=== PATIENT | female | born 1975 | race Caucasian/White ===

== ENCOUNTER 2023-10-04 04:45 | Emergency (ER) | payer OTHER, SELFPAY ==
[2023-10-04 04:46] VITALS: BP 205/103; PULSE 71; RESP 18; TEMP 36.4; O2SAT 95; BMI 26.4
--- NOTE | 2023-10-04 05:15 | EKG12_ITS ---
Test Reason : BACK PAIN Blood Pressure : / mmHG Vent. Rate : 067 BPM Atrial Rate : 067 BPM P-R Int : 178 ms QRS Dur : 084 ms QT Int : 396 ms P-R-T Axes : 065 058 059 degrees QTc Int : 418 ms Normal sinus rhythm Normal ECG Confirmed by NAT HU, DANIELLA ([id number]), commissioning editor PETRA SCHMITT ([id number]) on 10/05/2023 7:14:03 AM Referred By: Confirmed By:DANIELLA JOHNS MD
--- NOTE | 2023-10-04 05:18 | EDS_ITS ---
HPI History of Present Illness Chief Complaint: Back Informant: patient, spouse/S.O. and EMS Narrative Narrative: 48-year-old female presenting to the emergency department chief complaint back pain. Patient states that since April she has had some discomfort in her low back that she was seeing a chiropractor for. She states around the beginning of August she had a few weeks where things were good then began to have some pain again in the low back and a little bit in the mid back. She states that pain seemed to increase on Sunday over the course of 2 days took close to 40 tablets of 200 mg strength ibuprofen. She states it made her stomach upset and felt that the stomach was swollen. Today she was carrying buckets [place] and was sitting down to rest when she felt the pain in her back it more severe. She states it really has not relented since. She denies a history of hypertension stating that her blood pressure is pretty normal. She states she developed numbness and tingling lower extremity. She states that does not feel like they work right or they feel the same. She states that she can feel touch point 1 where touching her legs she does note that yes she can feel it it just does not feel normal. She states that she last urinated around 1900 hrs. No fevers. No familial history of aortic dissection or aneurysm. She denies any chest pain. No dyspnea but states that hurts when she takes a deep breath. PFSH PFSH Medical History no medical history Home Medications NK 10/04/23 [History Last Taken Unknown] Allergy/AdvReac Type Severity Reaction Status Date / Time No Known Allergies Allergy Verified 10/04/23 04:57 Social History (Updated 10/04/23 @ 05:[address] Andrew Barnes, DO) Smoking Status: Never smoker substance use type: other details: Cannabis ROS ROS ED Constitutional Constitutional ED: Denies chills, fever(s) or weight loss Eyes Eyes: Denies change in vision or diplopia ENT ENT ED: Denies ear pain, rhinorrhea or sore throat Cardiovascular Cardiovascular: Denies chest pain, orthopnea, palpitations or racing heartbeat Respiratory/Chest Respiratory/Chest: Denies cough, dyspnea or orthopnea Gastrointestinal Gastrointestinal: Denies abdominal pain, diarrhea, nausea or vomiting Genitourinary Genitourinary ED: Denies dysuria, hematuria or urinary frequency Musculoskeletal Musculoskeletal: Reports back pain; Denies arthralgias or myalgias Integumentary Denies abscess or rash Neurologic Neurologic: Reports paresthesias and weakness; Denies headache(s) Psychiatric Psychiatric: Denies anxiety, depression, suicidal ideation or suicidal thoughts Endocrine Endocrinology: Denies polydipsia, polyphagia or polyuria Allergic/Immunologic Allergic/Immunologic ED: Denies mouth swelling, tongue swelling or urticaria EXAM Physical Exam Const Vital Signs: 10/04/23 04:46 10/04/23 05:47 10/04/23 06:15 Temperature 97.5 F L Temperature Source Temporal Pulse Rate 71 78 72 Respiratory Rate 18 14 16 Blood Pressure 205/103 H 173/95 H 166/89 H Blood Pressure Mean 137 121 114 Pulse Ox 95 95 Oxygen Delivery Method Room Air Room Air 10/04/23 08:31 Temperature Temperature Source Pulse Rate 68 Respiratory Rate 16 Blood Pressure 183/88 H Blood Pressure Mean 119 Pulse Ox 97 Oxygen Delivery Method Room Air Positive well nourished and well developed General Appearance ED: well developed HEENT Reports normocephalic, head/scalp atraumatic and moist mucous membranes Eyes PERRL and EOMs intact bilaterally Neck no lymphadenopathy, supple and no JVD Resp normal respiratory effort and clear to auscultation bilaterally Cardio regular rate, regular rhythm and no murmurs GI normal to inspection, nondistended, normoactive bowel sounds and non-tender Palpation: soft Back/Spine no CVA tenderness Back/Spine Narrative: Patient reports a painful range of motion. Though when I push on the paraspinal musculature in the area that the patient states that it hurts really cannot reproduce the pain. Extremity normal to inspection General Extremety ED: Negative for edema General Extremity: Negative for edema Neuro oriented x3 and CN's II-XII intact bilaterally Neuro Narrative: Patient reports generalized weakness of the bilateral lower extremities. I see some movement against gravity but minimal. She has sensation to gross touch and pinprick but notes that it is decreased. She feels pressure sensation over the pelvis but again does note that it feels less than what it showed. She does appear to have decreased rectal tone and decreased sensation when Mijares inserted. Sensorium / Orientation: alert Sensory Exam: sensory level loss detected Motor Exam: strength abnormal Psych mental status grossly normal Mood & Affect: Negative for depressed or tearful Skin no rashes or lesions noted and no wounds MDM MDM MDM Narrative Medical decision making narrative: EKG done upon arrival shows a normal sinus rhythm with a ventricular rate of 67 bpm. My independent interpretation of the chest x-ray is normal mediastinal silhouette. Basic blood work showed a white count of 10 hemoglobin of 14.7. INR 1 PTT 28.1. CMP showed an AST of 42 lipase 28 creatinine 0.70. My concern was for spinal cord injury but also on the differential would be aortic emergencies and certainly with the complaint of abdominal swelling would worry about something intra-abdominal. Therefore a CT of the chest abdomen pelvis was ordered. This was more readily available than MRI not only in a time to obtain imaging but to rule out The most amount of possible pathologies and not the least is that nobody is an MRI at the current time.. This demonstrated what appears to be metastatic breast cancer with multiple areas of metastasis including liver and spine. Specifically T12 and T5 compression fractures. T5 has large mass resulting in severe spinal cord compression. Mijares catheter was placed with 2 L of urine out. Patient received morphine and Zofran. I spoke at length with the patient and her .I spoke locally with Dr. Morgan from spine surgery. Using shared decision making the family and I are both in agreement that transfer to tertiary care facility for neurosurgical evaluation and oncologic care. Patient does note that she may choose not to pursue mainstream therapy. And asking them where they would like to be transferred to they would like to go to [facility] in [place]. I spoke with Dr. Mayers from spine surgery who will accept the patient if we cannot get her to [facility] in a quicker timeframe. [facility] tells me that they have a 4-day wait. We are awaiting a bed assignment so in the interim we are going to obtain an MRI of the thoracic spine and lumbar spine. That way when the patient gets to tertiary care they do not have to wait for MRI to be performed. Patient and her were updated. She is not requesting any more pain medication. At the time of this dictation I reperformed a neurologic assessment. I am not getting any further movement of the legs. She still does have some sensation but it is significantly less than what it should be. History & Record Review Discussion w/independent historian: EMS personnel, Patient and Significant other Lab Data Attestation: I reviewed the patient's lab results. Labs: Laboratory Results - last 24 hr 10/04/23 10/04/23 05:25 07:25 WBC 10.2 RBC 5.15 Hgb 14.7 Hct 44.0 MCV 85.4 MCH 28.5 MCHC 33.4 RDW Std Deviation 38.8 RDW Coeff of Mimi 12.3 Plt Count 290 MPV 8.8 Immature Gran % (Auto) 0.400 Neut % (Auto) 74.3 H Lymph % (Auto) 16.7 L [place] % (Auto) 7.6 Eos % (Auto) 0.6 Baso % (Auto) 0.4 Absolute Neuts (auto) 7.6 Absolute Lymphs (auto) 1.70 Nucleated RBC % 0 PT 13.4 INR 1.0 APTT 28.1 Sodium 134 L Potassium 3.7 Chloride 101 Carbon Dioxide 25.0 Anion Gap 8 BUN 16 Creatinine 0.70 Estim Creat Clear Calc 77.98 Est GFR (MDRD) Af Amer 115 Est GFR (MDRD) Non-Af 95 BUN/Creatinine Ratio 22.9 H Glucose 98 Calcium 9.7 Total Bilirubin 0.80 Direct Bilirubin 0.22 AST 42 H ALT 46 Alkaline Phosphatase 112 Troponin I High Sens 9 Total Protein 8.0 Albumin 3.7 Globulin 4.3 H Lipase 28 Urine Color Yellow Urine Clarity Clear Urine pH 6.0 Ur Specific [place] 1.015 Urine Protein 15 H Urine Glucose (UA) Normal Urine Ketones 15 H Urine Occult Blood 50 H Urine Nitrite Positive H Urine Bilirubin Negative Urine Urobilinogen Normal Ur Leukocyte Esterase 25 H Urine RBC 0 SEEN Urine WBC 0-5 SEEN Ur Squamous Epith Cells 0 SEEN Urine Bacteria 0 SEEN Urine Mucus 0 SEEN Radiography Diagnostic Testing: Clinical Impression(s) from Imaging Studies Chest X-Ray 10/04/23 05:20 IMPRESSION: Mild bibasilar atelectasis. Electronically Signed: Juancho Gold MD at 5:39 EST , Abdomen/Pelvis CT 10/04/23 06:29 IMPRESSION: 1. Multiple hypodense lesions throughout the liver measuring up to 2 cm consistent with metastatic disease. 2. Complex cystic left adnexal lesion measuring 6.1 x 4.9 cm. This may indicate a cystic ovarian neoplasm. 3. Multiple sclerotic lesions throughout the visualized osseous structures consistent with metastatic disease, with a pathologic compression fracture of T12, with mildly retropulsed fracture fragment. Electronically Signed: Juancho Gold MD at 7:01 EST Reading Location ID and State: [facility] / [place] Tel , Service support , Chest CT 10/04/23 06:43 IMPRESSION: 1. Multiple metastatic lesions in the thoracic spine and sternum. Pathologic compression fractures of T5 and T12. There is a soft tissue mass associated with the T5 fracture which extends through the posterior vertebral body margin into the epidural space causing severe central canal stenosis with some compression of the thoracic spinal cord. 2. Large irregular right breast mass measuring 6.8 cm, likely indicating a primary breast malignancy. 3. Multiple metastatic nodules in the pulmonary parenchyma. Electronically Signed: Juancho Gold MD at 7:11 EST Reading Location ID and State: [facility] / [place] Tel , Service support , ADDENDUM: 10/04/23 0728 IMPRESSION: 1. Multiple metastatic lesions in the thoracic spine and sternum. Pathologic compression fractures of T5 and T12. There is a soft tissue mass associated with the T5 fracture which extends through the posterior vertebral body margin into the epidural space causing severe central canal stenosis with some compression of the thoracic spinal cord. 2. Large irregular right breast mass measuring 6.8 cm, likely indicating a primary breast malignancy. 3. Multiple metastatic nodules in the pulmonary parenchyma. N.B. : The above Results were Read Back by Juancho Gold MD to Andrew Barnes DO, and understanding confirmed on 10/04/2023 07:21:22 (ET). Electronically Signed: Juancho Gold MD at 7:11 EST , Discharge Plan Triage Chief Complaint: Back ED Provider: Andrew Barnes Dx/Rx/DC Orders Clinical Impression: Closed T5 spinal fracture with cord injury, Breast cancer, Cancer, metastatic to liver, Pathologic compression fracture of spine Prescriptions: No Action NK Primary Care Provider: Care Physician,No Primary Referrals: NOT,DEFINED [Non-Staff] -
--- NOTE | 2023-10-04 05:20 | RAD_ITS ---
EXAM: XR CHEST, 1 VIEW CLINICAL INDICATION: hypertension TECHNIQUE: Frontal view of the chest. COMPARISON: No relevant prior studies available. FINDINGS: LUNGS AND PLEURAL SPACES: Mild bibasilar atelectasis. No pneumothorax. No effusion. HEART: Unremarkable. Cardiac silhouette not enlarged. MEDIASTINUM: Central airways and mediastinal contour are unremarkable. BONES/JOINTS: Unremarkable. No acute fracture. SOFT TISSUES: Unremarkable. RAD/Chest 1 View (Portable) IMPRESSION: Mild bibasilar atelectasis. Electronically Signed: Juancho Gold MD at 5:39 EST ,
[2023-10-04 05:41] LABS: Absolute Neutrophil Count 7.6 X10^3/uL (2.0-7.7); Basophil# 0.04 X10^3/uL; Basophil% 0.4 % (0-1); Eosinophil# 0.06 X10^3/uL; Eosinophils% 0.6 % (0-5); Hemoglobin 14.7 g/dL (12.0-15.0); Lymphocyte % 16.7 % (19-41); Mean Corp Hgb Conc 33.4 g/dL (32-36); Mean Corpuscular Hgb 28.5 pg (27.0-32.0); Mean Corpuscular Volume 85.4 fL (81-99); Mean Platelet Vol. 8.8 fl (6.2-12.0); Monocyte# 0.77 X10^3/uL; Monocyte% 7.6 % (0-10); NRBC Flagged by Analyzer 0 % (0-5); Neutrophil # 7.55 X10^3/uL (2.7-7.7); Neutrophil % 74.3 % (47-70); Platelet Count 290 K/mm3 (150-450); RBC Distribution Width CV 12.3 % (11.6-14.6); RBC Distribution Width SD 38.8 fl (35.1-43.9); Red Blood Count 5.15 M/mm3 (4.2-5.4); White Blood Count 10.2 K/mm3 (4.4-11.0)
--- OUTSIDE RECORDS SUMMARY | 2023-10-04 05:44 | XMS RPT_ITS | CCD ---
Author Name Unknown Address [address] [place] [address] Organization [facility] Care Team Providers Care [employer] Plant Dispatcher Name Role Phone DEEPA JOYA Unavailable Unavailable PHYSICIAN, NONE Unavailable Unavailable DEEPA JOYA Unavailable Unavailable DEEPA JOYA Unavailable Unavailable PHYSICIAN, NONE Unavailable Unavailable Results Test Name Value Interpretation Reference Range Facil ity Encounters Encounter Date Encounter Type Care Provider Facility Start: 04-10-2018 End: 04-11-2018 Patient encounter DEEPA MichaelJose MAHNAZ Facility:[facility] Start: 04-03-2018 End: 04-05-2018 Evaluation and management of inpatient DEEPA Kendall JOYA Facility:[facility] Payers Date Payer Category Payer Self-pay Summary Purpose Family History No Family History Records Found Advance Directives No Advanced Directives Records Found Additional Source Comments INFORMATION SOURCE (unrecogn ized section and content) FOR RECORDS PERTAINING TO PATIENTS WHO ARE OR HAVE BEEN ENROLLED IN A CHEMICAL DEPENDENCY/SUBSTANCEABUSE PROGRAM, SOME INFORMATION MAY BE OMITTED. This clinical summary was aggregated from multiple sources. Caution should be exercised in using it in the provision of clinical care. This summary normalizes information from multiple sources, and as a consequence, information in this document may materially change the coding, format and clinical context of patient data. In addition, data may be omitted in some cases. CLINICAL DECISIONS SHOULD BE BASED ON THE PRIMARY CLINICAL RECORDS. [employer] provides no warranty or guarantee of the accuracy or completeness of information in this document.
[2023-10-04 05:47] VITALS: BP 173/95; PULSE 78; RESP 14; O2SAT 95
[2023-10-04] MEDS: Morphine 4 MG/ML Syringe IV ×2 (05:48→09:33)
[2023-10-04] MEDS: Ondansetron 4 MG/2 ML Vial IV ×2 (05:48→09:33)
[2023-10-04 05:50] LABS: Prothrombin Time (Protime)PT. 13.4 SECONDS (11.7-14.9)
[2023-10-04 05:51] LABS: Partial Thromboplast Time 28.1 Seconds (24.1-36.2)
[2023-10-04 06:05] LABS: AST(SGOT) 42 U/L (15-37); Alanine Aminotransfer ALT/SGPT 46 U/L (13-56); Albumin, Serum 3.7 g/dL (3.2-5.0); Alkaline Phosphatase 112 U/L (45-117); Anion Gap 8 (5-15); BUN 16 mg/dL (7-18); BUN/Creat Ratio 22.9 RATIO (10-20); Bilirubin, Direct 0.22 mg/dL (0.00-0.30); Calcium,Total 9.7 mg/dL (8.5-10.1); Chloride 101 mmol/L (98-107); EST Glomerular Filtration Rate 95 mL/min (>60); Est Glom Filt Rate - Afr Amer 115 mL/min (>60); Estimated Creatinine Clearance 77.98 ml/min; Globulin 4.3 g/dL (2.2-4.2); Glucose 98 mg/dL (74-106); Lipase 28 U/L (13-75); Potassium 3.7 mmol/L (3.5-5.1); Sodium Level 134 mmol/L (136-145); Troponin-I HS 9 pg/mL (3.0-54.0)
[2023-10-04 06:15] VITALS: BP 166/89; PULSE 72; RESP 16
--- NOTE | 2023-10-04 06:29 | CT_ITS ---
EXAM: CT ABDOMEN AND PELVIS WITH INTRAVENOUS CONTRAST CLINICAL INDICATION: abdominal pain TECHNIQUE: Helically acquired images were obtained of the abdomen and pelvis with intravenous contrast. This CT exam was performed using one or more of the following dose reduction techniques: automated exposure control, adjustment of the mA and/or kV according to patient size, and/or use of iterative reconstruction technique. CONTRAST: IV 100mL Isovue-370 RADIATION DOSE: CTDIvol = 18.40 mGy, DLP = 769.00 mGy-cm COMPARISON: No relevant prior studies available. FINDINGS: LOWER THORAX: Please see the separate chest CT report. ABDOMEN: LIVER: Multiple hypodense lesions throughout the liver measuring up to 2 cm consistent with metastatic disease. GALLBLADDER AND BILE DUCTS: Unremarkable. No calcified gallstones. No gallbladder distention or wall edema. No intra- or extrahepatic biliary ductal dilation. PANCREAS: Unremarkable. No focal cystic or solid mass. SPLEEN: Unremarkable. Normal size without focal cystic or solid mass. ADRENALS: Unremarkable. No nodules. KIDNEYS AND URETERS: Unremarkable. Normal renal size and position. No hydronephrosis. STOMACH AND BOWEL: Unremarkable. No stomach or bowel distention. No focal inflammatory change. PELVIS: APPENDIX: No evidence of acute appendicitis. BLADDER: Unremarkable. REPRODUCTIVE: Complex cystic left adnexal lesion measuring 6.1 x 4.9 cm. ABDOMEN and PELVIS: INTRAPERITONEAL SPACE: Unremarkable. No ascites or other fluid collection. No free air. BONES/JOINTS: Multiple sclerotic lesions throughout the visualized osseous structures consistent with metastatic disease, with a pathologic compression fracture of T12, with mildly retropulsed fracture fragment. SOFT TISSUES: Unremarkable. No discrete abdominal or pelvic wall hernia. VASCULATURE: Unremarkable. Abdominal aorta is non-dilated. LYMPH NODES: Unremarkable. No enlarged lymph nodes. CT/Abdomen/Pelvis W IV Cont ONLY IMPRESSION: 1. Multiple hypodense lesions throughout the liver measuring up to 2 cm consistent with metastatic disease. 2. Complex cystic left adnexal lesion measuring 6.1 x 4.9 cm. This may indicate a cystic ovarian neoplasm. 3. Multiple sclerotic lesions throughout the visualized osseous structures consistent with metastatic disease, with a pathologic compression fracture of T12, with mildly retropulsed fracture fragment. Electronically Signed: Juancho Gold MD at 7:01 EST ,
--- NOTE | 2023-10-04 06:43 | CT_ITS ---
We are attempting to reach an attending provider to discuss findings. An addendum with communication details will be sent when the communication is complete. EXAM: CT CHEST WITH INTRAVENOUS CONTRAST CLINICAL INDICATION: metastatic cancer TECHNIQUE: Helically acquired images were obtained of the chest with intravenous contrast. This CT exam was performed using one or more of the following dose reduction techniques: automated exposure control, adjustment of the mA and/or kV according to patient size, and/or use of iterative reconstruction technique. CONTRAST: IV 100mL Isovue-370 RADIATION DOSE: CTDIvol = 18.40 mGy, DLP = 769.00 mGy-cm COMPARISON: No relevant prior studies available. FINDINGS: LUNGS AND PLEURAL SPACES: Multiple metastatic nodules in the pulmonary parenchyma. No pleural effusion or thickening. No pneumothorax. HEART: Unremarkable. Heart size is normal. No pericardial effusion. MEDIASTINUM: Unremarkable. No mediastinal or hilar adenopathy. Esophagus is unremarkable. No hiatal hernia. THYROID: Unremarkable. No thyroid lesions. BONES/JOINTS: Multiple metastatic lesions in the thoracic spine and sternum. Pathologic compression fractures of T5 and T12. There is a soft tissue mass associated with the T5 fracture which extends into the epidural space causing severe stenosis with some compression of the thoracic spinal cord. SOFT TISSUES: Large irregular right breast mass measuring 6.8 cm, likely indicating a primary breast malignancy. VASCULATURE: Unremarkable. Thoracic aorta is non-dilated. No thoracic aortic dissection. No obvious central pulmonary embolism although this study was not performed with the pulmonary embolism protocol. LYMPH NODES: Some enlarged right axillary lymph nodes measuring up to [address]/Chest WITH Contrast IMPRESSION: 1. Multiple metastatic lesions in the thoracic spine and sternum. Pathologic compression fractures of T5 and T12. There is a soft tissue mass associated with the T5 fracture which extends through the posterior vertebral body margin into the epidural space causing severe central canal stenosis with some compression of the thoracic spinal cord. 2. Large irregular right breast mass measuring 6.8 cm, likely indicating a primary breast malignancy. 3. Multiple metastatic nodules in the pulmonary parenchyma. Electronically Signed: Juancho Gold MD at 7:11 EST ,
[2023-10-04 07:28] LABS: Bacteria 0 SEEN /hpf (None Seen); Mucous, Urine 0 SEEN /hpf (<or=2+); Red Blood Cells-Urine 0 SEEN /hpf (0-5); Squamous Epithelial Cells - UA 0 SEEN /hpf (5-10)
[2023-10-04] MEDS: 0.9% Normal Saline (1000mL) 1,000 ML 999 ML IV (07:29)
[2023-10-04 07:30] LABS: Color, Urine Yellow (Yellow); Glucose, Dipstick Normal (Normal); Ketone-Dipstick 15 mg/dl (Negative); Leukocyte Esterase-Dipstick 25 /ul (Negative); Nitrite-Dipstick Positive (Negative); Occult Blood-Urine 50 /ul (Negative); Protein-Dipstick 15 mg/dl (Negative); Specific Gravity, Urine 1.015 (1.002-1.030); Urine Bilirubin Dipstick Negative (Negative); Urine Clarity Clear (Clear); Urine Urobilinogen Normal (Normal)
[2023-10-04 07:37] LABS: White Blood Cells 0-5 SEEN /hpf (0-5)
--- NOTE | 2023-10-04 08:10 | NURSING ---
CALLED [facility] ABOUT TRANSFER. TALKED TO BHARATH, SHE TALKED TO DR TIPTON
--- NOTE | 2023-10-04 08:22 | NURSING ---
DR TIPTON TALKED TO DR POST, SPINE SURGERY
[2023-10-04 08:31] VITALS: BP 183/88; PULSE 68; RESP 16; O2SAT 97
--- NOTE | 2023-10-04 08:42 | MRI_ITS ---
EXAM: MR THORACIC SPINE WITHOUT AND WITH INTRAVENOUS CONTRAST CLINICAL INDICATION: t5 thoracic cord injury TECHNIQUE: Multiplanar and multisequence MR images of the thoracic spine without and with intravenous contrast. CONTRAST: IV 10 cc Clariscan COMPARISON: No relevant prior studies available. FINDINGS: VERTEBRAE: Abnormal bone marrow signal intensity involves multiple thoracic vertebral bodies associated with abnormal contrast enhancement consistent with multilevel metastatic disease. An expansile lesion of the T5 vertebral body noted associated with significant compression deformity. Associated expansion of the left T5 pedicle. DISCS/SPINAL CANAL/NEURAL FORAMINA: The posterior protrusion of T5 causes marked spinal stenosis and compression of the thoracic cord. Additional spinal stenosis at the T12 level also related to marked compression deformity of the T12 vertebral body. AP diameter of the spinal canal at T12 is 7 mm. SPINAL CORD: There is long segment of cord edema involving the T4-T6 segment related to the cord compression. LUNGS AND PLEURAL SPACES: Minimal pleural effusion noted bilaterally. Bilateral pulmonary nodules noted as well as right posterolateral pleural-based nodules consistent with metastatic disease. LIVER: Multiple contrast enhancing liver lesions also consistent with metastasis. MRI/Spine Thoracic W/WO Contrast IMPRESSION: 1. Extensive metastatic disease involving multiple thoracic vertebral bodies, lungs and liver. 2. Marked cord compression at T5 secondary to compression and expansion of the T5 vertebral body and left pedicle associated with cord edema. 3. Mild spinal stenosis at the T12 level related to compression fracture of T12. Electronically Signed: Johan Benjamin MD at 11:45 EST ,
--- NOTE | 2023-10-04 08:42 | MRI_ITS ---
EXAM: MR LUMBAR SPINE WITHOUT AND WITH INTRAVENOUS CONTRAST CLINICAL INDICATION: spinal cord injury TECHNIQUE: Multiplanar and multisequence MR images of the lumbar spine without and with intravenous contrast. CONTRAST: IV 10 cc Clariscan COMPARISON: No relevant prior studies available. FINDINGS: VERTEBRAE: Pathologic fracture of the T12 vertebral body with posterior protrusion causing narrowing of the spinal canal. Vertebral body heights of the lumbar vertebral bodies are well maintained. Dark 12 mm T1 and T2 lesion within the L2 vertebral body consistent with sclerotic bone metastasis. SPINAL CORD: Normal. Normal position and signal intensity of the conus medullaris. SOFT TISSUES: Normal. DISCS/SPINAL CANAL/NEURAL FORAMINA: L1-L2: Normal. Normal disc height and morphology. Normal spinal canal and lateral recesses. Normal neuroforamina. L2-L3: Normal. Normal disc height and morphology. Normal spinal canal and lateral recesses. Normal neuroforamina. L3-L4: Normal. Normal disc height and morphology. Normal spinal canal and lateral recesses. Normal neuroforamina. L4-L5: Normal. Normal disc height and morphology. Normal spinal canal and lateral recesses. Normal neuroforamina. L5-S1: Normal. Normal disc height and morphology. Normal spinal canal and lateral recesses. Normal neuroforamina. MRI/Spine Lumbar W/WO Contrast IMPRESSION: 1. Pathologic compression deformity of T12 causing mild spinal stenosis further described on the MR thoracic spine report. 2. 12 mm sclerotic metastasis of the L2 vertebral body. 3. Intact spinal canal and neural foramina at the lumbar level. Electronically Signed: Johan Benjamin MD at 11:52 EST ,
[2023-10-04] MEDS: HYDROmorphone 0.5 MG/0.5 ML SYRINGE IV (11:34)
[2023-10-04 11:38] VITALS: BP 175/96; PULSE 79; RESP 16; O2SAT 98
== END 2023-10-04 11:57 | disposition short-term general hospital (02) ==
PROVIDERS: Emergency Provider Emergency Medicine; Visit Provider Emergency Medicine
DX: M84.58XA Pathological fracture in neoplastic disease, other specified site, initial encounter for fracture (principal); C78.7 Secondary malignant neoplasm of liver and intrahepatic bile duct; C79.51 Secondary malignant neoplasm of bone; C50.911 Malignant neoplasm of unspecified site of right female breast; M48.04 Spinal stenosis, thoracic region; X58.XXXA Exposure to other specified factors, initial encounter
CPT/HCPCS: 51702; 71045; 71260; 72157; 72158; 74177; 80048; 80076; 81001; 83690; 84484; 85025; 85610; 85730; 93005; 96361; 96374; 96375; 96376; 99285; A9575; Q9967; A4216; J2405

== ENCOUNTER 2023-10-16 15:41 | Inpatient (IN) | payer SELFPAY, OTHER ==
--- OUTSIDE RECORDS SUMMARY | 2023-10-16 16:11 | XMS RPT_ITS | CCD ---
Author Name Unknown Address [address] [place] [id number] Organization [facility] Care Team Providers Care Universal Branch Consultant Name Role Phone DEEPA JOYA Unavailable Unavailable PHYSICIAN, NONE Unavailable Unavailable DEEPA JOYA Unavailable Unavailable DEEPA JOYA Unavailable Unavailable PHYSICIAN, NONE Unavailable Unavailable DEEPA TIPTON Referring Unavailable EMIR POST Attending Unavailable EMIR POST Admitting Unavailable EMIR POST Attending Unavailable EMIR POST Admitting Unavailable MATILDE GROSS Referring Unavailable Problems Problem Classification Problem Date Documented Da te Episodic/Chronic Other nervous system disorders (1 source) Unspecified cord compression; Translations: [Spinal cord compression (HCC)] Onset: 10-04-2023 Chronic Results Test Name Value Interpretation Reference Range Facil ity Vital Signs Date Time Vital Sign Value Performing Clinician Faci lity 10-04-2023 23:40-0500 SaO2% (BldA) [Mass fraction] 98 % DEEPA TIPTON [facility] Encounters Encounter Date Encounter Type Care Provider Facility Start: 10-15-2023 End: 10-15-2023 ambulatory EMIR POST Facility:[facility] Start: 10-04-2023 Evaluation and manag ement of inpatient DEEPA TIPTON Facility:[facility] Start: 04-10-2018 End: 04-11-2018 Patient encounter DEEPA JOYA Facility:[facility] Start: 04-03-2018 End: 04-05-2018 Evaluation and management of inpatient DEEPA JOYA Facility:[facility] Procedures Date Procedure Procedure Detail Performing Clinician Start: 10-04-2023 Antibody screen DEEPA TIPTON Payers Date Payer Category Payer Self-pay Clinical Notes 10-04-2023 to 10-15-2023 Note Date & Type Note Facility 10-15-2023 Note HNO ID: [id number] Author: NILSON STOREY PA-C Service: Neurosurgery Author Type: Physician Lens Grinder Rough Type: Progress Notes Filed: 10/15/2023 13:12 Note Text: SERVICE DATE: 10/15/2023 SERVICE TIME: 1:12 PM SPINE SURGERY TEAM PROGRESS NOTE After 5 PM please page Christine NicholsKARISSA [phone]; After 6 PM (1800) please page Pete Hernandez NP backup pager [phone]. Attending: Emir Madera MD Location: [facility] Hospital Day: 10/04/2023 11 Days Post-Op S/P: T2-L2 posterior instrumented fusion, T5/6 decompression, transpedicular approach for tumor resection MEDICATIONS: Current medications and allergies reviewed. Recommended/planned medication changes discussed in detail in the A/P section below. INTERVAL HPI (Subjective): is a 48 year old female resting comfortably in bed on exam. Reports stable sensation in BLE Denies excessive pain, bleeding, drainage, nausea, vomiting, chest pain, and shortness of breath. Overnight events noted: none. Bowel / Bladder dysfunction: yes. Hicks in place OBJECTIVE: LABS: CBC: Recent Labs 10/14/23233510/14/23 1310 WBC 16.87* 19.30* HB 12.2 12.9 HCT 35.6* 38.0 PLT 351 382 MCV 88.8 90.9 RDWCV 13.8 13.7 COAG: No results for input(s): APTT , INR in the last 168 hours. BMP: No results for input(s): GLUC , NA , K , CHLOR , CO2 , ANION , BUN , CREAT in the last 168 hours. CHEM: No results for input(s): ALB , TPROT , CA , MG , P in the last 168 hours. HEPATIC: No results for input(s): ALKPHOS , ALT , AST , TBILI , LIPASE in the last 168 hours. URINALYSIS: No results for input(s): PH , SPGR , UGLUC , UBILI , UKET , UHB , UPROT , UROBIL , UWBC , LEUKEST , SSA in the last 168 hours. Invalid input(s): NITR CrCl cannot be calculated (Unknown ideal weight.). 10/14/23204410/14/23 2340 10/15/23 0544 10/15/23 0920 BP: 114/74 137/78 119/66 123/65 Pulse: 79 69 70 (!) 46 Resp: 16 18 18 18 Temp: 36.5 ?C (97.7 ?F) 36.7 ?C (98.1 ?F) 36.7 ?C (98.1 ?F) TempSrc: Oral Oral Oral Oral SpO2: 96% 93% 96% 96% Weight: Height: General: A AND O x Oriented to: person, place, and time, awake and alert. Speech is Normal, full, fluent. Appears stated age, well built, in no apparent distress. Psychiatric: Mood and affect: Appropriate. Skin: Color, texture, turgor normal. No rashes or lesions - Inspection: No evidence of eythema, warmth, bruising, abrasions, scars, deformity, or lacerations. Dressing c/d/i CV: Normal heart sounds, rate, rhythm, pedal pulses. No audible murmurs, carotid bruits, LE edema.. Respiratory: unlabored breathing Abdomen: Soft and Non-tender Musculoskeletal: Motor: UE BICEPS TRICEPS DELTS Wrist Ext Wrist Flex Television Anchor HI R 5/5 5/5 5/5 5/5 5/5 5/5 5/5 L 5/5 5/5 5/5 5/5 5/5 5/5 5/5 LE Hip Flex Knee Flex Knee Extend Plantarflex Dorsiflex EHL R 0/5 0/5 0/5 0/5 0/5 0/5 L 0/5 0/5 0/5 0/5 0/5 0/5 Sensory: ~T5-6 sensory level, reports mildly improving sensation in BLE (L>R) QUALITY CHECKLIST: Lines, Drains, and Airways Line Duration Peripheral 10/04/23 External Facility Left Antecubital 18 Gauge 11 days Peripheral 10/04/23 1748 Right 18 Gauge 10 days Drain Duration Indwelling Urinary Catheter 10/13/23 0057 Hicks 16 Fr 2 days Maintain hicks catheter for neurogenic bladder Current restraint orders: None Assessment AND Plan Active Hospital Problems as of 10/15/2023 Noted - [facility]olved [facility] * (Principal) Spinal cord compression (HCC) 10/04/2023 - Present Yes Current Assessment AND Plan Assessment: 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, now s/p decompression PLAN: -Post-op MRI reviewed, demonstrates decompression of spinal canal -Dexamethasone taper completed -Continue PT/OT Post-op pain 10/05/2023 - Present Unknown Current Assessment AND Plan Assessment: Postop pain PLAN: -Continue present regimen Thoracic spine tumor 10/05/2023 - Present Yes Current Assessment AND Plan Assessment: 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, now s/p decompression PLAN: -Post-op MRI reviewed, demonstrates decompression of spinal canal -Dexamethasone taper completed -Pathology demonstrates metastatic breast CA -Oncology and radiation oncology teams consulted to arrange follow-up for the patient Fusion of spine, thoracolumbar region 10/05/2023 - Present Unknown Current Assessment AND Plan Assessment: S/p T2-L2 posterior instrumented fusion, T5/6 decompression, transpedicular approach for tumor resection PLAN: -Pain control: continue current regimen -Drain removed on 10/11 -PT/OT/PMANDR : rec [place] -Post-op XR reviewed -DVT ppx: continue IPCs, heparin SQ bid -OOB for meals, mobilize at least 3x daily -Bowel regimen -Hicks in place due to failed void trial -D/c to [place] tomorrow -D/w Dr. Post Thrombocytopenia (HCC) 10/05/2023 - Present No Current Assessment AND Plan Assessment: Th (more content not included)... [facility] 10-14-2023 Note HNO ID: [id number] Author: MATILDE GROSS PA-C Service: Neurosurgery Author Type: Physician Lens Grinder Rough Type: Plan of Care Filed: 10/14/2023 18:00 Note Text: Paged by nursing that patient had two episodes of dark blood with clots from the rectum. Patient denies any previous history of rectal bleeding. She denies any abdominal or GI symptoms. Hemodynamically stable, with a hgb of 12.9. Consulted GI. They recommend q12h CBC and to order a colonoscopy if bleeding continues. Plan: Q12h CBC SQ Heparin stopped Please page NSGY with any concerns regarding this patient overnight Matilde Gross PA-C Neurosurgery Pager [phone] This note is written by NIGHT DEVON, please do not page above number after 7A [facility] 10-14-2023 Note HNO ID: [id number] Author: MATILDE GROSS PA-C Service: Neurosurgery Author Type: Physician Lens Grinder Rough Type: Progress Notes Filed: 10/14/2023 10:50 Note Text: SERVICE DATE: 10/14/2023 SERVICE TIME: 10:50 AM SPINE SURGERY TEAM PROGRESS NOTE After 6 PM (1800) please page Pete David EFFICIENCY ANALYST backup pager [phone]. Attending: Emir Madera MD Location: [facility] Hospital Day: 10/04/2023 10 Days Post-Op S/P: T2-L2 posterior instrumented fusion, T5/6 decompression, transpedicular approach for tumor resection MEDICATIONS: Current medications and allergies reviewed. Recommended/planned medication changes discussed in detail in the A/P section below. INTERVAL HPI (Subjective): is a 48 year old female resting comfortably in bed on exam. When asked if she feels her RLE sensation has improved she states I don't know . Unable to arrange transport to [place] this weekend, likely to happen early this week. Denies excessive pain, bleeding, drainage, nausea, vomiting, chest pain, and shortness of breath. Overnight events noted: none. Bowel / Bladder dysfunction: yes. Hicks in place OBJECTIVE: LABS: CBC: Recent Labs 10/08/23 0516 WBC 15.14* HB 10.6* HCT 31.6* PLT 202 MCV 89.0 RDWCV 13.5 COAG: No results for input(s): APTT , INR in the last 168 hours. BMP: Recent Labs 10/08/23 0516 GLUC 126* NA 140 K 5.2* CHLOR 105 CO2 23 ANION 12 BUN 24* CREAT 0.58 CHEM: Recent Labs 10/08/23 0516 CA 8.8 HEPATIC: No results for input(s): ALKPHOS , ALT , AST , TBILI , LIPASE in the last 168 hours. URINALYSIS: No results for input(s): PH , SPGR , UGLUC , UBILI , UKET , UHB , UPROT , UROBIL , UWBC , LEUKEST , SSA in the last 168 hours. Invalid input(s): NITR CrCl cannot be calculated (Unknown ideal weight.). 10/13/23 2040 10/14/23 0141 10/14/23 0509 10/14/23 0944 BP: 140/72 109/64 133/94 122/73 Pulse: 78 62 62 88 Resp: 16 16 16 17 Temp: 36.9 ?C (98.4 ?F) 36.9 ?C (98.4 ?F) 37 ?C (98.6 ?F) 36.7 ?C (98.1 ?F) TempSrc: Oral Oral Oral Oral SpO2: 97% 96% 96% 94% Weight: Height: General: A AND O x Oriented to: person, place, and time, awake and alert. Speech is Normal, full, fluent. Appears stated age, well built, in no apparent distress. Psychiatric: Mood and affect: Appropriate. Skin: Color, texture, turgor normal. No rashes or lesions - Inspection: No evidence of eythema, warmth, bruising, abrasions, scars, deformity, or lacerations. Dressing c/d/i CV: Normal heart sounds, rate, rhythm, pedal pulses. No audible murmurs, carotid bruits, LE edema.. Respiratory: unlabored breathing Abdomen: Soft and Non-tender Musculoskeletal: Motor: UE BICEPS TRICEPS DELTS Wrist Ext Wrist Flex Television Anchor HI R 5/5 5/5 5/5 5/5 5/5 5/5 5/5 L 5/5 5/5 5/5 5/5 5/5 5/5 5/5 LE Hip Flex Knee Flex Knee Extend Plantarflex Dorsiflex EHL R 0/5 0/5 0/5 0/5 0/5 0/5 L 0/5 0/5 0/5 0/5 0/5 0/5 Sensory: ~T5-6 sensory level, reports mildly improving sensation in BLE (L>R) QUALITY CHECKLIST: Lines, Drains, and Airways Line Duration Peripheral 10/04/23 External Facility Left Antecubital 18 Gauge 10 days Peripheral 10/04/23 1748 Right 18 Gauge 9 days Drain Duration Indwelling Urinary Catheter 10/13/23 0057 Hicks 16 Fr 1 day D/c hicks catheter Current restraint orders: None Assessment AND Plan Active Hospital Problems as of 10/14/2023 Noted - Resolved [facility] * (Principal) Spinal cord compression (HCC) 10/04/2023 - Present Yes Current Assessment AND Plan Assessment: 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, now s/p decompression PLAN: -Post-op MRI reviewed, demonstrates decompression of spinal canal -Continue dexamethasone taper -Continue PT/OT Post-op pain 10/05/2023 - Present Unknown Current Assessment AND Plan Assessment: Postop pain PLAN: -Continue present regimen Thoracic spine tumor 10/05/2023 - Present Yes Current Assessment AND Plan Assessment: 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, now s/p decompression PLAN: -Post-op MRI reviewed, demonstrates decompression of spinal canal -Continue dexamethasone taper -Pathology demonstrates metastatic breast CA -Oncology and radiation oncology teams consulted to arrange follow-up for the patient Fusion of spine, thoracolumbar region 10/05/2023 - Present Unknown Current Assessment AND Plan Assessment: S/p T2-L2 posterior instrumented fusion, T5/6 decompression, transpedicular approach for tumor resection PLAN: -Pain control: continue current regimen -Drain removed on 10/11 -PT/OT/PMANDR : rec [place] -Post-op XR reviewed -DVT ppx: continue IPCs, heparin SQ bid -OOB for meals, mobilize at least 3x daily -Bowel regimen -Hicks in place due to failed void trial -RNF transfer pending (awaiting bed space with patrica lift) -Likely d/c to [place] early next week -D/w Dr. Post Thrombocytopenia ([facility]) (more content not included)... [facility] 10-13-2023 Note HNO ID: [id number] Author: MATILDE GROSS PA-C Service: Neurosurgery Author Type: Physician Lens Grinder Rough Type: Progress Notes Filed: 10/13/2023 08:39 Note Text: SERVICE DATE: 10/13/2023 SERVICE TIME: 8:39 AM SPINE SURGERY TEAM PROGRESS NOTE After 6 PM (1800) please page Samara Myers PA-C [phone], backup pager [phone]. Attending: Emir Madera MD Location: [facility] Hospital Day: 10/04/2023 9 Days Post-Op S/P: T2-L2 posterior instrumented fusion, T5/6 decompression, transpedicular approach for tumor resection MEDICATIONS: Current medications and allergies reviewed. Recommended/planned medication changes discussed in detail in the A/P section below. INTERVAL HPI (Subjective): is a 48 year old female who reports improved sensation of RLE. Still without any motor movement. Hicks replaced overnight due to failed void trial. Denies excessive pain, bleeding, drainage, nausea, vomiting, chest pain, and shortness of breath. Overnight events noted: none. Bowel / Bladder dysfunction: No OBJECTIVE: LABS: CBC: Recent Labs 10/08/23 0516 10/07/23 0703 WBC 15.14* 13.05* HB 10.6* 11.0* HCT 31.6* 32.8* PLT 202 170 MCV 89.0 89.4 RDWCV 13.5 13.9 COAG: No results for input(s): APTT , INR in the last 168 hours. BMP: Recent Labs 10/08/23 0516 10/07/23 0539 GLUC 126* 116* NA 140 139 K 5.2* 5.2* CHLOR 105 108* CO2 23 21* ANION 12 10 BUN 24* 21 CREAT 0.58 0.49* CHEM: Recent Labs 10/08/23 0516 10/07/23 0539 CA 8.8 8.4* HEPATIC: No results for input(s): ALKPHOS , ALT , AST , TBILI , LIPASE in the last 168 hours. URINALYSIS: No results for input(s): PH , SPGR , UGLUC , UBILI , UKET , UHB , UPROT , UROBIL , UWBC , LEUKEST , SSA in the last 168 hours. Invalid input(s): NITR CrCl cannot be calculated (Unknown ideal weight.). 10/12/23202510/13/23 0115 10/13/23 0128 10/13/23 0535 BP: 113/70 136/73 131/69 Pulse: 79 64 64 Resp: 17 16 16 17 Temp: 36.7 ?C (98.1 ?F) 36.7 ?C (98.1 ?F) 37 ?C (98.6 ?F) TempSrc: Oral Oral Oral SpO2: 95% 95% 96% Weight: Height: General: A AND O x Oriented to: person, place, and time, awake and alert. Speech is Normal, full, fluent. Appears stated age, well built, in no apparent distress. Psychiatric: Mood and affect: Appropriate. Skin: Color, texture, turgor normal. No rashes or lesions - Inspection: No evidence of eythema, warmth, bruising, abrasions, scars, deformity, or lacerations. Dressing c/d/i CV: Normal heart sounds, rate, rhythm, pedal pulses. No audible murmurs, carotid bruits, LE edema.. Respiratory: unlabored breathing Abdomen: Soft and Non-tender Musculoskeletal: Motor: UE BICEPS TRICEPS DELTS Wrist Ext Wrist Flex Television Anchor HI R 5/5 5/5 5/5 5/5 5/5 5/5 5/5 L 5/5 5/5 5/5 5/5 5/5 5/5 5/5 LE Hip Flex Knee Flex Knee Extend Plantarflex Dorsiflex EHL R 0/5 0/5 0/5 0/5 0/5 0/5 L 0/5 0/5 0/5 0/5 0/5 0/5 Sensory: ~T5-6 sensory level, reports mildly improving sensation in BLE (L>R) QUALITY CHECKLIST: Lines, Drains, and Airways Line Duration Peripheral 10/04/23 External Facility Left Antecubital 18 Gauge 9 days Peripheral 10/04/23 1748 Right 18 Gauge 8 days Drain Duration External Collection Device 10/12/23 1021 [facility] <1 day Indwelling Urinary Catheter 10/13/23 0057 Hicks 16 Fr <1 day D/c hicks catheter Current restraint orders: None Assessment AND Plan Active Hospital Problems as of 10/13/2023 Noted - Resolved [facility] * (Principal) Spinal cord compression (HCC) 10/04/2023 - Present Yes Current Assessment AND Plan Assessment: 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, now s/p decompression PLAN: -Post-op MRI reviewed, demonstrates decompression of spinal canal -Continue dexamethasone taper -Continue PT/OT Post-op pain 10/05/2023 - Present Unknown Current Assessment AND Plan Assessment: Postop pain PLAN: -Continue present regimen Thoracic spine tumor 10/05/2023 - Present Yes Current Assessment AND Plan Assessment: 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, now s/p decompression PLAN: -Post-op MRI reviewed, demonstrates decompression of spinal canal -Continue dexamethasone taper -Pathology demonstrates metastatic breast CA -Oncology and radiation oncology teams consulted to arrange follow-up for the patient Fusion of spine, thoracolumbar region 10/05/2023 - Present Unknown Current Assessment AND Plan Assessment: S/p T2-L2 posterior instrumented fusion, T5/6 decompression, transpedicular approach for tumor resection PLAN: -Pain control: continue current regimen -Drain removed on 10/11 -PT/OT/PMANDR : rec [place] -Post-op XR reviewed -DVT ppx: continue IPCs, heparin SQ bid -OOB for meals, mobilize at least 3x daily -Bowel regimen -D/c hicks catheter for void trial today, q4h bladder scans and prn straight catheterizations orde (more content not included)... [facility] 10-12-2023 Note HNO ID: [id number] Author: NILSON STOREY PA-C Service: Neurosurgery Author Type: Physician Lens Grinder Rough Type: Progress Notes Filed: 10/12/2023 12:32 Note Text: SERVICE DATE: 10/12/2023 SERVICE TIME: 12:31 PM SPINE SURGERY TEAM PROGRESS NOTE After 6 PM (1800) please page Samara Myers PA-C [phone], backup pager [phone]. Attending: Emir Madera MD Location: [id number] Hospital Day: 9 10/04/2023 8 Days Post-Op S/P: T2-L2 posterior instrumented fusion, T5/6 decompression, transpedicular approach for tumor resection MEDICATIONS: Current medications and allergies reviewed. Recommended/planned medication changes discussed in detail in the A/P section below. INTERVAL HPI (Subjective): is a 48 year old female who reports improved sensation of RLE today. Still without any motor movement but patient states PT has noticed she is able to support some of her weight when they have her in the lift apparatus. Discussed plan to remove catheter for void trial today. Denies excessive pain, bleeding, drainage, nausea, vomiting, chest pain, and shortness of breath. Overnight events noted: none. Bowel / Bladder dysfunction: No OBJECTIVE: LABS: CBC: Recent Labs 10/08/23 0516 10/07/23 0703 10/06/23 0558 10/05/23 1539 WBC 15.14* 13.05* 12.03* 10.18 HB 10.6* 11.0* 10.2* 10.2* HCT 31.6* 32.8* 29.8* 29.7* PLT 202 170 132* 129* MCV 89.0 89.4 88.2 88.4 RDWCV 13.5 13.9 13.8 13.5 COAG: No results for input(s): APTT , INR in the last 168 hours. BMP: Recent Labs 10/08/23 0516 10/07/23 0539 10/06/23 0558 10/05/23 1539 GLUC 126* 116* 119* 161* NA 140 139 142 141 K 5.2* 5.2* 4.5 4.1 CHLOR 105 108* 112* 110* CO2 23 21* 22 21* ANION 12 10 8* 10 BUN 24* 21 15 15 CREAT 0.58 0.49* 0.58 0.52* CHEM: Recent Labs 10/08/23 0516 10/07/23 0539 10/06/23 0558 10/05/23 1539 CA 8.8 8.4* 8.7 7.4* HEPATIC: No results for input(s): ALKPHOS , ALT , AST , TBILI , LIPASE in the last 168 hours. URINALYSIS: No results for input(s): PH , SPGR , UGLUC , UBILI , UKET , UHB , UPROT , UROBIL , UWBC , LEUKEST , SSA in the last 168 hours. Invalid input(s): NITR CrCl cannot be calculated (Unknown ideal weight.). 10/12/23 0800 10/12/23 0834 10/12/23 1000 10/12/23 1200 BP: 133/75 147/75 147/83 Pulse: (!) 57 (!) 58 96 63 Resp: Temp: 36.5 ?C (97.7 ?F) 36.7 ?C (98.1 ?F) TempSrc: Oral Oral SpO2: 95% 96% 96% Weight: Height: General: A AND O x Oriented to: person, place, and time, awake and alert. Speech is Normal, full, fluent. Appears stated age, well built, in no apparent distress. Psychiatric: Mood and affect: Appropriate. Skin: Color, texture, turgor normal. No rashes or lesions - Inspection: No evidence of eythema, warmth, bruising, abrasions, scars, deformity, or lacerations. Dressing c/d/i CV: Normal heart sounds, rate, rhythm, pedal pulses. No audible murmurs, carotid bruits, LE edema.. Respiratory: unlabored breathing Abdomen: Soft and Non-tender Musculoskeletal: Motor: UE BICEPS TRICEPS DELTS Wrist Ext Wrist Flex Television Anchor HI R 5/5 5/5 5/5 5/5 5/5 5/5 5/5 L 5/5 5/5 5/5 5/5 5/5 5/5 5/5 LE Hip Flex Knee Flex Knee Extend Plantarflex Dorsiflex EHL R 0/5 0/5 0/5 0/5 0/5 0/5 L 0/5 0/5 0/5 0/5 0/5 0/5 Sensory: ~T5-6 sensory level, reports mildly improving sensation in BLE (L>R) QUALITY CHECKLIST: Lines, Drains, and Airways Line Duration Peripheral 10/04/23 External Facility Left Antecubital 18 Gauge 8 days Peripheral 10/04/23 1748 Right 18 Gauge 7 days Drain Duration External Collection Device 10/12/23 1021 [facility] <1 day D/c hicks catheter Current restraint orders: None Assessment AND Plan Active Hospital Problems as of 10/12/2023 Noted - Resolved [facility] * (Principal) Spinal cord compression (HCC) 10/04/2023 - Present Yes Current Assessment AND Plan Assessment: 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, now s/p decompression PLAN: -Post-op MRI reviewed, demonstrates decompression of spinal canal -Continue dexamethasone taper -Continue PT/OT Post-op pain 10/05/2023 - Present Unknown Current Assessment AND Plan Assessment: Postop pain PLAN: -Continue present regimen Thoracic spine tumor 10/05/2023 - Present Yes Current Assessment AND Plan Assessment: 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 [facility] 10-11-2023 Note HNO ID: [id number] Author: NILSON STOREY PA-C Service: Neurosurgery Author Type: Physician Lens Grinder Rough Type: Progress Notes Filed: 10/11/2023 14:53 Note Text: SERVICE DATE: 10/11/2023 SERVICE TIME: 2:53 PM SPINE SURGERY TEAM PROGRESS NOTE After 6 PM (1800) please page Mary Campbell PA-C [phone] or Samara Myers PA-C [phone], backup pager [phone]. Attending: Emir Madera MD Location: [id number] Hospital Day: 8 10/04/2023 7 Days Post-Op S/P: T2-L2 posterior instrumented fusion, T5/6 decompression, transpedicular approach for tumor resection MEDICATIONS: Current medications and allergies reviewed. Recommended/planned medication changes discussed in detail in the A/P section below. INTERVAL HPI (Subjective): is a 48 year old female who reports pain is well controlled. Still has not noticed any improvement in BLE motor function. Discussed plan for discharge to [place] 1-2 days. Denies excessive pain, bleeding, drainage, nausea, vomiting, chest pain, and shortness of breath. Overnight events noted: none. Bowel / Bladder dysfunction: No OBJECTIVE: LABS: CBC: Recent Labs 10/08/23 0516 10/07/23 0703 10/06/23 0558 10/05/23 1539 10/05/23 0112 WBC 15.14* 13.05* 12.03* 10.18 9.61 HB 10.6* 11.0* 10.2* 10.2* 10.6* HCT 31.6* 32.8* 29.8* 29.7* 32.2* PLT 202 170 132* 129* 78* MCV 89.0 89.4 88.2 88.4 89.2 RDWCV 13.5 13.9 13.8 13.5 13.8 NEUTP -- -- -- -- 83.6 ABSNEUT -- -- -- -- 8.03* LYMPHP -- -- -- -- 10.1 MONOP -- -- -- -- 5.6 COAG: Recent Labs 10/05/23 0112 APTT 30.9 INR 1.3 BMP: Recent Labs 10/08/23 0516 10/07/23 0539 10/06/23 0558 10/05/23 1539 10/05/23 0112 GLUC 126* 116* 119* 161* 172* NA 140 139 142 141 140 K 5.2* 5.2* 4.5 4.1 3.8 CHLOR 105 108* 112* 110* 108* CO2 23 21* 22 21* 17* ANION 12 10 8* 10 15 BUN 24* 21 15 15 11 CREAT 0.58 0.49* 0.58 0.52* 0.63 CHEM: Recent Labs 10/08/23 0516 10/07/23 0539 10/06/23 0558 10/05/23 1539 10/05/23 0112 CA 8.8 8.4* 8.7 7.4* 7.1* HEPATIC: No results for input(s): ALKPHOS , ALT , AST , TBILI , LIPASE in the last 168 hours. URINALYSIS: Recent Labs 10/04/23 2140 10/04/23 2018 10/04/23 1844 PH 7.36 7.40 7.43 CrCl cannot be calculated (Unknown ideal weight.). 10/11/23 1100 10/11/23 1200 10/11/23 1300 10/11/23 1400 BP: 112/75 124/68 138/81 145/81 Pulse: 79 74 69 68 Resp: 18 20 Temp: 36.7 ?C (98 ?F) TempSrc: Oral SpO2: 95% 96% Weight: Height: General: A AND O x Oriented to: person, place, and time, awake and alert. Speech is Normal, full, fluent. Appears stated age, well built, in no apparent distress. Psychiatric: Mood and affect: Appropriate. Skin: Color, texture, turgor normal. No rashes or lesions - Inspection: No evidence of eythema, warmth, bruising, abrasions, scars, deformity, or lacerations. Dressing c/d/i CV: Normal heart sounds, rate, rhythm, pedal pulses. No audible murmurs, carotid bruits, LE edema.. Respiratory: unlabored breathing Abdomen: Soft and Non-tender Musculoskeletal: Motor: UE BICEPS TRICEPS DELTS Wrist Ext Wrist Flex Television Anchor HI R 5/5 5/5 5/5 5/5 5/5 5/5 5/5 L 5/5 5/5 5/5 5/5 5/5 5/5 5/5 LE Hip Flex Knee Flex Knee Extend Plantarflex Dorsiflex EHL R 0/5 0/5 0/5 0/5 0/5 0/5 L 0/5 0/5 0/5 0/5 0/5 0/5 Sensory: ~T5-6 sensory level, reports mildly improving sensation in BLE (L>R) QUALITY CHECKLIST: Lines, Drains, and Airways Line Duration Peripheral 10/04/23 External Facility Left Antecubital 18 Gauge 7 days Peripheral 10/04/23 1748 Right 18 Gauge 6 days Drain Duration Drain/Tube 10/04/23 2242 Hemovac Left Lower;Posterior Back Drain #1 6 days Indwelling Urinary Catheter 10/04/23 1717 Hciks 6 days Maintain drain, continue hicks catheter Current restraint orders: None Assessment AND Plan Active Hospital Problems as of 10/11/2023 Noted - Resolved [facility] * (Principal) Spinal cord compression (HCC) 10/04/2023 - Present Yes Current Assessment AND Plan Assessment: 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, now s/p decompression PLAN: -Post-op MRI reviewed, demonstrates decompression of spinal canal -Continue dexamethasone taper -Continue PT/OT Post-op pain 10/05/2023 - Present Unknown Current Assessment AND Plan Assessment: Postop pain PLAN: -Continue present regimen Thoracic spine tumor 10/05/2023 - Present Yes Current Assessment AND Plan Assessment: 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, now s/p decompression PLAN: -Post-op MRI reviewed, demonstrates decompression of spinal canal -Continue dexamethasone taper -Pathology demonstrates metastatic breast CA -Oncology and radiation oncology teams consulted to arrange follow-up for the patient Fusion of spine, thoracolumbar region 10/05/2023 - Present Unknown Current Assessment AND Plan Assessment: S/p T2-L2 posterior instrumented fusio (more content not included)... [facility] 10-10-2023 Note HNO ID: [id number] Author: NILSON STOREY PA-C Service: Neurosurgery Author Type: Physician Lens Grinder Rough Type: Progress Notes Filed: 10/10/2023 12:08 Note Text: SERVICE DATE: 10/10/2023 SERVICE TIME: 12:08 PM SPINE SURGERY TEAM PROGRESS NOTE After 6 PM (1800) please page Mary Campbell PA-C [phone], backup pager [phone]. Attending: Emir Madera MD Location: [id number] Hospital Day: 10/04/2023 6 Days Post-Op S/P: T2-L2 posterior instrumented fusion, T5/6 decompression, transpedicular approach for tumor resection MEDICATIONS: Current medications and allergies reviewed. Recommended/planned medication changes discussed in detail in the A/P section below. INTERVAL HPI (Subjective): is a 48 year old female who minimal pain that is well controlled. Denies any motor movement of BLE. Discussed plan to contact oncology and radiation oncology teams today. Denies excessive pain, bleeding, drainage, nausea, vomiting, chest pain, and shortness of breath. Overnight events noted: none. Bowel / Bladder dysfunction: No OBJECTIVE: LABS: CBC: Recent Labs 10/08/23 0516 10/07/23 0703 10/06/23 0558 10/05/23 1539 10/05/23 01110/04/23 1423 WBC 15.14* 13.05* 12.03* 10.18 9.61 11.33* HB 10.6* 11.0* 10.2* 10.2* 10.6* 14.7 HCT 31.6* 32.8* 29.8* 29.7* 32.2* 43.1 PLT 202 170 132* 129* 78* 250 MCV 89.0 89.4 88.2 88.4 89.2 85.3 RDWCV 13.5 13.9 13.8 13.5 13.8 12.5 NEUTP -- -- -- -- 83.6 79.4 ABSNEUT -- -- -- -- 8.03* 9.00* LYMPHP -- -- -- -- 10.1 13.5 MONOP -- -- -- -- 5.6 5.9 COAG: Recent Labs 10/05/23 01110/04/23 1423 APTT 30.9 28.3 INR 1.3 1.0 BMP: Recent Labs 10/08/23 0516 10/07/23 0539 10/06/23 0558 10/05/23 1539 10/05/23 01110/04/23 1423 GLUC 126* 116* 119* 161* 172* 100* NA 140 139 142 141 140 132* K 5.2* 5.2* 4.5 4.1 3.8 3.9 CHLOR 105 108* 112* 110* 108* 96* CO2 23 21* 22 21* 17* 24 ANION 12 10 8* 10 15 12 BUN 24* 21 15 15 11 12 CREAT 0.58 0.49* 0.58 0.52* 0.63 0.68 CHEM: Recent Labs 10/08/23 0516 10/07/23 0539 10/06/23 0558 10/05/23 1539 10/05/23 0112 10/04/23 1423 ALB -- -- -- -- -- 4.2 TPROT -- -- -- -- -- 7.4 CA 8.8 8.4* 8.7 7.4* 7.1* 10.1 MG -- -- -- -- -- 1.9 P -- -- -- -- -- 4.4 HEPATIC: Recent Labs 10/04/23 1423 ALKPHOS 117 ALT 34 AST 32 TBILI 0.6 URINALYSIS: Recent Labs 10/04/23 2140 10/04/23 2018 10/04/23 1844 PH 7.36 7.40 7.43 CrCl cannot be calculated (Unknown ideal weight.). 10/10/23 0800 10/10/23 0900 10/10/23 1000 10/10/23 1100 BP: 155/86 143/81 Pulse: 63 75 71 65 Resp: 20 20 22 21 Temp: 36.8 ?C (98.2 ?F) TempSrc: SpO2: 94% 96% 95% 95% Weight: Height: General: A AND O x Oriented to: person, place, and time, awake and alert. Speech is Normal, full, fluent. Appears stated age, well built, in no apparent distress. Psychiatric: Mood and affect: Appropriate. Skin: Color, texture, turgor normal. No rashes or lesions - Inspection: No evidence of eythema, warmth, bruising, abrasions, scars, deformity, or lacerations. Dressing c/d/i CV: Normal heart sounds, rate, rhythm, pedal pulses. No audible murmurs, carotid bruits, LE edema.. Respiratory: unlabored breathing Abdomen: Soft and Non-tender Musculoskeletal: Motor: UE BICEPS TRICEPS DELTS Wrist Ext Wrist Flex Television Anchor HI R 5/5 5/5 5/5 5/5 5/5 5/5 5/5 L 5/5 5/5 5/5 5/5 5/5 5/5 5/5 LE Hip Flex Knee Flex Knee Extend Plantarflex Dorsiflex EHL R 0/5 0/5 0/5 0/5 0/5 0/5 L 0/5 0/5 0/5 0/5 0/5 0/5 Sensory: ~T5-6 sensory level, reports mildly improving sensation in BLE (L>R) QUALITY CHECKLIST: Lines, Drains, and Airways Line Duration Peripheral 10/04/23 External Facility Left Antecubital 18 Gauge 6 days Peripheral 10/04/23 1748 Right 18 Gauge 5 days Drain Duration Drain/Tube 10/04/23 2242 Hemovac Left Lower;Posterior Back Drain #1 5 days Indwelling Urinary Catheter 10/04/23 1717 Hicks 5 days Maintain drain, continue hicks catheter Current restraint orders: None Assessment AND Plan Active Hospital Problems as of 10/10/2023 Noted - Resolved [facility] * (Principal) Spinal cord compression (HCC) 10/04/2023 - Present Yes Current Assessment AND Plan Assessment: 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, now s/p decompression PLAN: -Post-op MRI reviewed, demonstrates decompression of spinal canal -Continue dexamethasone taper -Continue PT/OT Post-op pain 10/05/2023 - Present Unknown Current Assessment AND Plan Assessment: Postop pain PLAN: -Continue present regimen Thoracic spine tumor 10/05/2023 - Present Yes Current Assessment AND Plan Assessment: 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, now s/p decompression PLAN: -Post-op MRI reviewed, demonstrates decompression of spinal canal -Continue dexamethasone taper -Follow-up pathology results, suspect breast CA primary given breast mass found on (more content not included)... [facility] 10-09-2023 Note HNO ID: [id number] Author: DARIAN CASIAON PA-C Service: Neurosurgery Author Type: Physician Lens Grinder Rough Type: Progress Notes Filed: 10/09/2023 17:29 Note Text: SERVICE DATE: 10/09/2023 SERVICE TIME: 5:28 PM SPINE SURGERY TEAM PROGRESS NOTE After 5 PM (1600) please page Marla Calderón CNP [phone]. After 6 PM (1800) please page Matilde Gross PA-C [phone], backup pager [phone]. Attending: Emir Madera MD Location: [facility] [id number]/[id number] Hospital Day: 6 10/04/2023 5 Days Post-Op S/P: T2-L2 posterior instrumented fusion, T5/6 decompression, transpedicular approach for tumor resection MEDICATIONS: Current medications and allergies reviewed. Recommended/planned medication changes discussed in detail in the A/P section below. INTERVAL HPI (Subjective): is a 48 year old female who minimal pain that is well controlled. I did not see any BLE movement on exam but she states that she was able to wiggle her toes yesterday. Patient reports improved sensation in LE. Discussed plan for onc consult once pathology is resulted, as well as progression to AR. Denies excessive pain, bleeding, drainage, nausea, vomiting, chest pain, and shortness of breath. Overnight events noted: none. Bowel / Bladder dysfunction: No OBJECTIVE: LABS: CBC: Recent Labs 10/08/23 0516 10/07/23 0703 10/06/23 0558 10/05/23 1539 10/05/23 0112 10/04/23 1423 WBC 15.14* 13.05* 12.03* 10.18 9.61 11.33* HB 10.6* 11.0* 10.2* 10.2* 10.6* 14.7 HCT 31.6* 32.8* 29.8* 29.7* 32.2* 43.1 PLT 202 170 132* 129* 78* 250 MCV 89.0 89.4 88.2 88.4 89.2 85.3 RDWCV 13.5 13.9 13.8 13.5 13.8 12.5 NEUTP -- -- -- -- 83.6 79.4 ABSNEUT -- -- -- -- 8.03* 9.00* LYMPHP -- -- -- -- 10.1 13.5 MONOP -- -- -- -- 5.6 5.9 COAG: Recent Labs 10/05/23 0112 10/04/23 1423 APTT 30.9 28.3 INR 1.3 1.0 BMP: Recent Labs 10/08/23 0516 10/07/23 0539 10/06/23 0558 10/05/23 1539 10/05/23 0112 10/04/23 1423 GLUC 126* 116* 119* 161* 172* 100* NA 140 139 142 141 140 132* K 5.2* 5.2* 4.5 4.1 3.8 3.9 CHLOR 105 108* 112* 110* 108* 96* CO2 23 21* 22 21* 17* 24 ANION 12 10 8* 10 15 12 BUN 24* 21 15 15 11 12 CREAT 0.58 0.49* 0.58 0.52* 0.63 0.68 CHEM: Recent Labs 10/08/23 0516 10/07/23 0539 10/06/23 0558 10/05/23 1539 10/05/23 0112 10/04/23 1423 ALB -- -- -- -- -- 4.2 TPROT -- -- -- -- -- 7.4 CA 8.8 8.4* 8.7 7.4* 7.1* 10.1 MG -- -- -- -- -- 1.9 P -- -- -- -- -- 4.4 HEPATIC: Recent Labs 10/04/23 1423 ALKPHOS 117 ALT 34 AST 32 TBILI 0.6 URINALYSIS: Recent Labs 10/04/23 2140 10/04/23 2018 10/04/23 1844 PH 7.36 7.40 7.43 CrCl cannot be calculated (Unknown ideal weight.). 10/09/23 0800 10/09/23 1000 10/09/23 1200 10/09/23 1600 BP: 155/80 146/79 152/83 Pulse: 65 85 72 Resp: Temp: 36.4 ?C (97.5 ?F) 36.7 ?C (98.1 ?F) 36.7 ?C (98.1 ?F) TempSrc: Oral SpO2: 96% 96% 96% Weight: Height: General: A AND O x Oriented to: person, place, and time, awake and alert. Speech is Normal, full, fluent. Appears stated age, well built, in no apparent distress. Psychiatric: Mood and affect: Appropriate. Skin: Color, texture, turgor normal. No rashes or lesions - Inspection: No evidence of eythema, warmth, bruising, abrasions, scars, deformity, or lacerations. Dressing c/d/i CV: Normal heart sounds, rate, rhythm, pedal pulses. No audible murmurs, carotid bruits, LE edema.. Respiratory: unlabored breathing Abdomen: Soft and Non-tender Musculoskeletal: Motor: UE BICEPS TRICEPS DELTS Wrist Ext Wrist Flex Television Anchor HI R 5/5 5/5 5/5 5/5 5/5 5/5 5/5 L 5/5 5/5 5/5 5/5 5/5 5/5 5/5 LE Hip Flex Knee Flex Knee Extend Plantarflex Dorsiflex EHL R 0/5 0/5 0/5 0/5 0/5 0/5 L 0/5 0/5 0/5 0/5 0/5 0/5 Sensory: ~T5-6 sensory level, reports mildly improving sensation in BLE (L>R) QUALITY CHECKLIST: Lines, Drains, and Airways Line Duration Peripheral 10/04/23 External Facility Left Antecubital 18 Gauge 5 days Peripheral 10/04/23 1748 Right 18 Gauge 4 days Drain Duration Indwelling Urinary Catheter 10/04/23 1717 Hicks 5 days Drain/Tube 10/04/23 2242 Hemovac Left Lower;Posterior Back Drain #1 4 days Maintain drain, continue hicks catheter Current restraint orders: None Assessment AND Plan * Spinal cord compression (HCC)- (present on admission) Assessment: 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, now s/p decompression PLAN: -Post-op MRI reviewed, demonstrates decompression of spinal canal -Begin tapering dexamethasone, taper orders placed -Continue PT/OT Paraplegia (HCC)- (present on admission) Assessment: 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 PLAN: -Post-op MRI reviewed, demonstrates decompression of spinal canal -Begin tapering dexamethasone, taper orders placed -Continue PT/OT Hypocalcemia Assessment: Hypocalcemia PLAN: -Resolved following repletion Acute (more content not included)... [facility] 10-08-2023 Note HNO ID: [id number] Author: DANIEL KIDD RN Service: ? Author Type: Registered Nurse Type: Progress Notes Filed: 10/11/2023 00:46 Note Text: Patient given 5 mg of oxycodone before bed. Pain at a 4/10. Patient tolerated well . Scanner not working and unable to chart [facility] 10-08-2023 Note HNO ID: [id number] Author: NILSON STOREY PA-C Service: Neurosurgery Author Type: Physician Lens Grinder Rough Type: Progress Notes Filed: 10/08/2023 12:16 Note Text: SERVICE DATE: 10/08/2023 SERVICE TIME: 12:16 PM SPINE SURGERY TEAM PROGRESS NOTE After 5 PM (1600) please page Marla Calderón CNP [phone]. After 6 PM (1800) please page Matilde Gross PA-C [phone], backup pager [phone]. Attending: Emir Madera MD Location: [id number]/[id number] Hospital Day: 5 10/04/2023 4 Days Post-Op S/P: T2-L2 posterior instrumented fusion, T5/6 decompression, transpedicular approach for tumor resection MEDICATIONS: Current medications and allergies reviewed. Recommended/planned medication changes discussed in detail in the A/P section below. INTERVAL HPI (Subjective): is a 48 year old female who minimal pain. States she has not had any voluntary movement of BLE. Reports improving sensation in BLE, left more than right. Denies excessive pain, bleeding, drainage, nausea, vomiting, chest pain, and shortness of breath. Overnight events noted: none. Bowel / Bladder dysfunction: No OBJECTIVE: LABS: CBC: Recent Labs 10/08/23 0516 10/07/23 0703 10/06/23 0558 10/05/23 1539 10/05/23 0112 10/04/23 1423 WBC 15.14* 13.05* 12.03* 10.18 9.61 11.33* HB 10.6* 11.0* 10.2* 10.2* 10.6* 14.7 HCT 31.6* 32.8* 29.8* 29.7* 32.2* 43.1 PLT 202 170 132* 129* 78* 250 MCV 89.0 89.4 88.2 88.4 89.2 85.3 RDWCV 13.5 13.9 13.8 13.5 13.8 12.5 NEUTP -- -- -- -- 83.6 79.4 ABSNEUT -- -- -- -- 8.03* 9.00* LYMPHP -- -- -- -- 10.1 13.5 MONOP -- -- -- -- 5.6 5.9 COAG: Recent Labs 10/05/23 01110/04/23 1423 APTT 30.9 28.3 INR 1.3 1.0 BMP: Recent Labs 10/08/23 0510/07/23 0539 10/06/23 0510/05/23 15310/05/2311110/04/23 1423 GLUC 126* 116* 119* 161* 172* 100* NA 140 139 142 141 140 132* K 5.2* 5.2* 4.5 4.1 3.8 3.9 CHLOR 105 108* 112* 110* 108* 96* CO2 23 21* 22 21* 17* 24 ANION 12 10 8* 10 15 12 BUN 24* 21 15 15 11 12 CREAT 0.58 0.49* 0.58 0.52* 0.63 0.68 CHEM: Recent Labs 10/08/2351510/07/23 0510 0510/05/23 15310/05/2311110/04/23 1423 ALB -- -- -- -- -- 4.2 TPROT -- -- -- -- -- 7.4 CA 8.8 8.4* 8.7 7.4* 7.1* 10.1 MG -- -- -- -- -- 1.9 P -- -- -- -- -- 4.4 HEPATIC: Recent Labs 10/04/23 1423 ALKPHOS 117 ALT 34 AST 32 TBILI 0.6 URINALYSIS: Recent Labs 10/04/23 2140 10/04/23201710/04/23 1844 PH 7.36 7.40 7.43 CrCl cannot be calculated (Unknown ideal weight.). 10/08/23 0400 10/08/23 0430 10/08/23 0600 10/08/23 0800 BP: 125/75 157/77 Pulse: (!) 57 64 Resp: 12 18 Temp: 36.9 ?C (98.4 ?F) 36.7 ?C (98 ?F) TempSrc: Oral Oral SpO2: 96% 96% Weight: 60.2 kg (132 lb 11.5 oz) Height: General: A AND O x Oriented to: person, place, and time, awake and alert. Speech is Normal, full, fluent. Appears stated age, well built, in no apparent distress. Psychiatric: Mood and affect: Appropriate. Skin: Color, texture, turgor normal. No rashes or lesions - Inspection: No evidence of eythema, warmth, bruising, abrasions, scars, deformity, or lacerations. Dressing c/d/i CV: Normal heart sounds, rate, rhythm, pedal pulses. No audible murmurs, carotid bruits, LE edema.. Respiratory: unlabored breathing Abdomen: Soft and Non-tender Musculoskeletal: Motor: UE BICEPS TRICEPS DELTS Wrist Ext Wrist Flex Television Anchor HI R 5/5 5/5 5/5 5/5 5/5 5/5 5/5 L 5/5 5/5 5/5 5/5 5/5 5/5 5/5 LE Hip Flex Knee Flex Knee Extend Plantarflex Dorsiflex EHL R 0/5 0/5 0/5 0/5 0/5 0/5 L 0/5 0/5 0/5 0/5 0/5 0/5 Sensory: ~T5-6 sensory level, reports mildly improving sensation in BLE (L>R) QUALITY CHECKLIST: Lines, Drains, and Airways Line Duration Peripheral 10/04/23 External Facility Left Antecubital 18 Gauge 4 days Peripheral 10/04/23 1748 Right 18 Gauge 3 days Drain Duration Drain/Tube 10/04/23 2242 Hemovac Left Lower;Posterior Back Drain #1 3 days Indwelling Urinary Catheter 10/04/23 1717 Hicks 3 days Maintain drain, continue hicks catheter Current restraint orders: None Assessment AND Plan Active Hospital Problems as of 10/08/2023 Noted - Resolved [facility] * (Principal) Spinal cord compression (HCC) 10/04/2023 - Present Yes Current Assessment AND Plan Assessment: 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, now s/p decompression PLAN: -Post-op MRI reviewed, demonstrates decompression of spinal canal -Begin tapering dexamethasone, taper orders placed -Continue PT/OT Post-op pain 10/05/2023 - Present Unknown Current Assessment AND Plan Assessment: Postop pain PLAN: -Continue present regimen Thoracic spine tumor 10/05/2023 - Present Yes Current Assessment AND Plan Assessment: 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, now s/p decompression PLAN: -Post-op MRI reviewed, demonstrates decompression of spinal canal -Begin taperin (more content not included)... [facility] 10-07-2023 Note HNO ID: [id number] Author: IRINA SPEARS MD Service: Neurosurgery Author Type: Resident Type: Progress Notes Filed: 10/07/2023 11:12 Note Text: Neurosurgery Inpatient Progress Note Interval HPI: No acute events overnight Objective: 10/07/23 0200 10/07/23 0400 10/07/23 0600 10/07/23 0800 BP: 130/63 115/61 127/65 162/87 Pulse: 74 63 62 71 Resp: 19 13 13 21 Temp: 36.8 ?C (98.2 ?F) 37.1 ?C (98.7 ?F) TempSrc: Oral Axillary SpO2: 97% 97% 97% 98% Weight: Height: Intake/Output Summary (Last 24 hours) at 10/07/2023 1111 Last data filed at 10/07/2023 0800 Gross per 24 hour Intake -- Output 3125 ml Net -3125 ml EXAM: NAD, AAO x 3 CN grossly intact Strength: RUE: D 5 Bi 5 Tri 5 HG 5 HI 5 LUE: D 5 Bi 5 Tri 5 HG 5 HI 5 RLE: HF 0 KE 1 DF 0 EHL 0 PF 0 LLE: HF 1 KE 0 DF 0 EHL 0 PF 0 T5-6 sensory level, reports subtle tingling sensation throughout LLE BP 162/87 Pulse 71 Temp (Src) 98.7 (Axillary) Resp 21 Ht 4' 10 (1.47m) Wt 116 lb 10 oz (52.9kg) SpO2 98% BMI 24.38 kg/(m2). O2 Therapy: Room Air A/P: 48 year old female with PMH thoracic back pain who presented to an OSH ED this morning after developing acute-onset BLE weakness and numbness, with worsened pain since last week. 10/03 at 1200, difficulty mobilizing, was carrying a bucket of water and felt a snap in her back. Unable to feel her feet by 1930. Unable to ambulate by 2099. Transferred from [facility] ED with MRI showing T5 and T12 severe compression deformities with focal kyphosis and cord compression. S/p T2-L2 Posterior instrumented fusion; T5/6 Decompression, transpedicular approach for tumor resection - PMR c/s - PT/OT: AR - MAP Goal >85, mIVF - Dex 4mg q6hr, per Dr. 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 Riana Spears MD PGY-3, Neurological Surgery Pager: [phone] Neurosurgery librarian special collections: [phone] 11:12 AM 10/07/23 Please page [phone] on weekends, after 6pm, or if I am not reachable at the above number [facility] 10-06-2023 Note HNO ID: [id number] Author: IRINA SPEARS MD Service: Neurosurgery Author Type: Resident Type: Progress Notes Filed: 10/06/2023 07:34 Note Text: Neurosurgery Inpatient Progress Note Interval HPI: No acute events overnight Objective: 10/05/23 1000 10/05/23 1100 10/05/23 1200 10/05/23 1400 BP: 116/61 120/63 143/73 117/59 Pulse: 78 77 81 75 Resp: 17 16 19 15 Temp: 37 ?C (98.6 ?F) TempSrc: SpO2: 98% 98% 98% 96% Weight: Height: Intake/Output Summary (Last 24 hours) at 10/05/2023 1555 Last data filed at 10/05/2023 1430 Gross per 24 hour Intake 6744 ml Output 5300 ml Net 1444 ml EXAM: NAD, AAO x 3 CN grossly intact Strength: RUE: D 5 Bi 5 Tri 5 HG 5 HI 5 LUE: D 5 Bi 5 Tri 5 HG 5 HI 5 RLE: HF 0 KE 0 DF 0 EHL 0 PF 0 LLE: HF 0 KE 0 DF 0 EHL 0 PF 0 T5-6 sensory level, reports subtle tingling sensation throughout LLE BP 117/59 Pulse 75 Temp (Src) 98.6 (Oral) Resp 15 Ht 4' 10 (1.47m) Wt 116 lb 10 oz (52.9kg) SpO2 96% BMI 24.38 kg/(m2). O2 Therapy: Room Air, Liters: 2 A/P: 48 year old female with PMH thoracic back pain who presented to an OSH ED this morning after developing acute-onset BLE weakness and numbness, with worsened pain since last week. 10/03 at 1200, difficulty mobilizing, was carrying a bucket of water and felt a snap in her back. Unable to feel her feet by 193. Unable to ambulate by 2099. Transferred from OSH ED with MRI showing T5 and T12 severe compression deformities with focal kyphosis and cord compression. S/p T2-L2 Posterior instrumented fusion; T5/6 Decompression, transpedicular approach for tumor resection - PMR c/s - PT/OT: AR - MAP Goal >85, mIVF - Dex 4mg q6hr, will discuss taper plan with Dr. Post - Wean [employer] SUPERVISOR as able - F/u pathology results; onc and rad/onc c/s pending results - UR XR when able - IPCs, SQH - Trend CBC/BMP; monitor Hgb and Plts and Ca - Monitor Drain output Staff: Dr. Riana Spears MD PGY-3, Neurological Surgery Pager: [phone] Neurosurgery librarian special collections: [phone] 7:34 AM 10/06/23 Please page [phone] on weekends, after 6pm, or if I am not reachable at the above number [facility] 10-06-2023 Note HNO ID: [id number] Author: NOTE, INTERFACE, ? Service: ? Author Type: ? Type: Progress Notes Filed: 10/06/2023 02:17 Note Text: Epic Scheduled Downtime: 10/06/2023 1:00:00 AM to 10/06/2023 2:04:22 AM [facility] 10-05-2023 Note HNO ID: [id number] Author: NELSY CLAUDIO RN Service: Care Management Author Type: Registered Nurse Type: Care Mgt Initial Assessment Filed: 10/05/2023 12:12 Note Text: CARE MANAGEMENT: ASSESSMENT AND DISCHARGE PLAN SERVICE DATE: October 05, 2023 SERVICE TIME: 1207 (ASSESSMENT COMPLETED WITH PT.'S SPOUSE MARSHA.) PCP: No primary care provider on file. Primary Contact: Extended Emergency Contact Information Primary Emergency Contact: Marsha Gil Relation: Spouse Admission Status: Inpatient Insurance Provider: [employer] GENERIC-- EPISCOPAL AID. Discharge Planning requested by: Per Department Practice Potential Transition Plans Rehab Facility Advance Directives Current Advance Directive: None Backend Python Developer Attempted to Assist with AD Completion: Yes Action: Other: See Comment (Pt. occupied. PT at bedside.) Current Living Arrangements and Support Lives with: Spouse/significant other, Children ((Son- age 5)) Type of Residence: Private Residence (House) (Multi level home with basement. Bedroom on the main floor.) Does the patient have to climb stairs at home?: Yes;stairs outside the home ((1-2 ALEAH)) Support: Family members, Alev[employer]/enriqueta community, Spouse/significant other, Friends/neighbors How do you manage to accomplish the following: Independent: Ambulation;Bathe/Shower;Dress;Meals/Meal Prep;Medication Management;Going to the bathroom;Transportation to appointments/community Current Services/Equipment Current Post-Acute Service(s): None Discharge Planning Patient Goal(s): Other: See Comment Patient's Other Post-Acute Care Goal(s): Rehab, per spouse. Dawson of Choice Explained: Dawson of Choice Given: No Reason Not Given: Unable to complete with this assessment - revisit Discharge Planning Participant(s): Patient;Spouse/significant other;Family Patient/Family Comments: Marsha Gil ([facility] [place])-- [phone] Caregiver Assessment: Caregiver is ready, willing and able to meet the patient's needs as recommended by the inter-professional team: No Transport at Discharge: Transportation Arrangements: To Be Determined (Anticipate ambulance transport. (If plan is for a return to home, friends/community/family will be able to provide transportation to home. )) Needs Prior to Discharge: Needs Prior to Discharge: To Be Determined;Patient/Family;OT/PT Evaluation;Discharge Transportation;Other: See Comment (Post acute care facility acceptance of [facility]. ( If post acute care facility is needed.)) Post-Acute Discharge Plan: D/C date and needs unknwn. PT/OT pending. Anticipate AR LOC. ( Payor source is [facility].) 24 hour notice would be required for the arrangement of ambulance transport. Continue BP control and pain management. Unit CM/SW to follow for D/C planning needs. Please see Treatment Team for Care Management Weekend/Holiday coverage. SIGNATURE: Nelsy Claudio RN PATIENT NAME: Sofia Gil DATE: October 05, 2023 TIME: 12:07 PM CONTACT #: [phone] [facility] 10-05-2023 Note HNO ID: [id number] Author: NILSON STOREY PA-C Service: Neurosurgery Author Type: Physician Lens Grinder Rough Type: Progress Notes Filed: 10/05/2023 10:51 Note Text: SERVICE DATE: 10/05/2023 SERVICE TIME: 10:50 AM SPINE SURGERY TEAM PROGRESS NOTE After 5 PM (1600) please page Marla Calderón CNP [phone]. After 6 PM (1800) please page Pete Hernandez CNP [phone], backup pager [phone]. Attending: Emir Madera MD Location: [id number]/[id number] Hospital Day: 2 10/04/2023 1 Day Post-Op S/P: T2-L2 posterior instrumented fusion, T5/6 decompression, transpedicular approach for tumor resection MEDICATIONS: Current medications and allergies reviewed. Recommended/planned medication changes discussed in detail in the A/P section below. INTERVAL HPI (Subjective): is a 48 year old female who reports pain is well controlled on current regimen. Denies any improved motor strength in BLE, still with no movement. Reports tingling sensation in LLE, RLE remains completely numb. Denies excessive pain, bleeding, drainage, nausea, vomiting, chest pain, and shortness of breath. Overnight events noted: none. Bowel / Bladder dysfunction: No OBJECTIVE: LABS: CBC: Recent Labs 10/05/23 0112 10/04/23 1423 WBC 9.61 11.33* HB 10.6* 14.7 HCT 32.2* 43.1 PLT 78* 250 MCV 89.2 85.3 RDWCV 13.8 12.5 NEUTP 83.6 79.4 ABSNEUT 8.03* 9.00* LYMPHP 10.1 13.5 MONOP 5.6 5.9 COAG: Recent Labs 10/05/23 0112 10/04/23 1423 APTT 30.9 28.3 INR 1.3 1.0 BMP: Recent Labs 10/05/23 0112 10/04/23 1423 GLUC 172* 100* NA 140 132* K 3.8 3.9 CHLOR 108* 96* CO2 17* 24 ANION 15 12 BUN 11 12 CREAT 0.63 0.68 CHEM: Recent Labs 10/05/23 0112 10/04/23 1423 ALB -- 4.2 TPROT -- 7.4 CA 7.1* 10.1 MG -- 1.9 P -- 4.4 HEPATIC: Recent Labs 10/04/23 1423 ALKPHOS 117 ALT 34 AST 32 TBILI 0.6 URINALYSIS: Recent Labs 10/04/23 2140 10/04/23201710/04/23 1844 PH 7.36 7.40 7.43 CrCl cannot be calculated (Unknown ideal weight.). 10/05/23 0845 10/05/23 0900 10/05/23 0930 10/05/23 1000 BP: 96/58 113/57 115/60 116/61 Pulse: 88 84 76 78 Resp: 22 18 16 17 Temp: 37 ?C (98.6 ?F) 37 ?C (98.6 ?F) TempSrc: SpO2: 96% 97% 98% Weight: Height: General: A AND O x Oriented to: person, place, and time, awake and alert. Speech is Normal, full, fluent. Appears stated age, well built, in no apparent distress. Psychiatric: Mood and affect: Appropriate. Skin: Color, texture, turgor normal. No rashes or lesions - Inspection: No evidence of eythema, warmth, bruising, abrasions, scars, deformity, or lacerations. Dressing c/d/i CV: Normal heart sounds, rate, rhythm, pedal pulses. No audible murmurs, carotid bruits, LE edema.. Respiratory: unlabored breathing Abdomen: Soft and Non-tender Musculoskeletal: Motor: UE BICEPS TRICEPS DELTS Wrist Ext Wrist Flex Television Anchor HI R 5/5 5/5 5/5 5/5 5/5 5/5 5/5 L 5/5 5/5 5/5 5/5 5/5 5/5 5/5 LE Hip Flex Knee Flex Knee Extend Plantarflex Dorsiflex EHL R 0/5 0/5 0/5 0/5 0/5 0/5 L 0/5 0/5 0/5 0/5 0/5 0/5 Sensory: ~T5-6 sensory level, reports subtle tingling sensation throughout LLE QUALITY CHECKLIST: Lines, Drains, and Airways Line Duration Peripheral 10/04/23 External Facility Left Antecubital 18 Gauge 1 day Peripheral 10/04/23 1748 Right 18 Gauge <1 day Drain Duration Drain/Tube 10/04/23 2242 Hemovac Left Lower;Posterior Back Drain #1 <1 day Indwelling Urinary Catheter 10/04/23 1717 Hicks <1 day Maintain drain, continue hicks catheter Current restraint orders: None Assessment AND Plan Active Hospital Problems as of 10/05/2023 Noted - Resolved [facility] * (Principal) Spinal cord compression (HCC) 10/04/2023 - Present Yes Current Assessment AND Plan Assessment: 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, now s/p decompression PLAN: -Acquire postoperative MRI of T/L spine wwo contrast -MAP goal >85, NS bolus followed by mIVF today -Dex 4mg q6h for spinal cord edema -PT/OT and PMANDR evaluations today Post-op pain 10/05/2023 - Present Unknown Current Assessment AND Plan Assessment: Postop pain PLAN: -Continue present regimen -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 FILTER PLANT SUPERVISOR 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 Thoracic spine tumor 10/05/2023 - Present Yes Current Assessment AND Plan Assessment: 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, now s/p decompression PLAN: -Acquire postoperative MRI of T/L spine wwo contrast -Dex 4mg q6h for spinal cord edema -Follow-up pathology results -Will likely require oncology and radiation oncology consults postoperatively pending pathology results Fusion of spine, thoracolumbar region 10/05/2023 - Present Unknown Current Assessment AND Plan Assessment: S/p T2-L2 posterior instrumented fusion, T5/6 decompression, transpedicular approach for tumor resection PLAN: -Pain control: continue FILTER PLANT SUPERVISOR, begin weaning tomorrow -Trend drain output -PT/OT/PMANDR (more content not included)... [facility] 10-05-2023 Note HNO ID: [id number] Author: VENTURA SPEARS MD Service: Neurosurgery Author Type: Resident Type: Progress Notes Filed: 10/05/2023 06:54 Note Text: Neurosurgery Inpatient Progress Note Interval HPI: Surgery complete around 12am, back to SDU around 3am. No return of lower extremity function. Objective: 10/05/23 0402 10/05/23 0500 10/05/23 0600 10/05/23 0613 BP: 126/68 121/62 109/59 116/64 Pulse: 73 66 67 71 Resp: 16 14 13 14 Temp: TempSrc: SpO2: 100% 100% 100% 98% Weight: Height: Intake/Output Summary (Last 24 hours) at 10/05/2023 0651 Last data filed at 10/05/2023 0610 Gross per 24 hour Intake 6517 ml Output 4250 ml Net 2267 ml EXAM: Awake, alert Ox3 Comfortable on 2L Pain reasonably well controlled on FILTER [employer] SUPERVISOR BUE 5/5 all groups BLE 0/5 all groups Mid thoracic sensory level Drain with bloody drainage A/P: 48 year old female with PMH thoracic back pain who presented to an OSH ED this morning after developing acute-onset BLE weakness and numbness, with worsened pain since last week. Pt with hx of thoracic back pain since 04/2023, sees a chiropractor for possible herniated disc. 10/03 at 1200, dificulty mobilizing, was carrying a bucket of water and felt a snap in her back. Unable to feel her feet by 1929. Unable to ambulate by 2099. Transferred from OSH ED with MRI showing T5 and T12 severe compression deformities with focal kyphosis and cord compression. SDU MAP goal 85, keep hydrated Dex 4q6 FIL[employer] SUPERVISOR, wean eventually MRI with/without of C/T/L spine XR T/L spine PT/OT Platelets low postop - transfuse 1u now, recheck after transfusion Ca low postop - recheck BMP now, replete as needed Staff: Dr. Post Plan of care discussed with: Provider, RN, Patient. Signature: Ventura Spears MD PGY-7, Neurological Surgery Pager: [phone] Neurosurgery librarian special collections: [phone] 6:51 AM 10/05/23 Please page [phone] on weekends and after 6pm [facility] 10-05-2023 Note HNO ID: [id number] Author: STEPHAN TONG MD Service: Neurosurgery Author Type: Resident Type: Plan of Care Filed: 10/05/2023 00:44 Note Text: Neurosurgery Postop Check Note: Name: Sofia Gil Procedure: T2-L2 posterior instrumented fusion, T5/6 decompression, transpedicular approach for tumor resection EBL in case 1500 EXAM: Awake, waking up from anesthesia Ox3 RUE: D 5 Bi 5 Tri 5 HG 5 HI 5 LUE: D 5 Bi 5 Tri 5 HG 5 HI 5 RLE: HF 0 KE 0 DF 0 EHL 0 PF 0 LLE: HF 0 KE 0 DF 0 EHL 0 PF 0 Diminished sensation from approx umbilicus and inferior Hoffmans negative Clonus negative Babinski not assessed Reflexes: 0 Plan: 48 year old female with PMH thoracic back pain who presented to an OSH ED this morning after developing acute-onset BLE weakness and numbness, with worsened pain since last week. Pt with hx of thoracic back pain since 04/2023, sees a chiropractor for possible herniated disc. 10/03 at 1200, dificulty mobilizing, was carrying a bucket of water and felt a snap in her back. Unable to feel her feet by 1930. Unable to ambulate by 2100. Transferred from OSH ED with MRI showing T5 and T12 severe compression deformities with focal kyphosis and cord compression. 10/04/23 T2-L2 posterior instrumented fusion, T5/6 decompression, transpedicular approach for tumor resection - PACU -> tentatively SDU - CBC, BMP, coags in PACU - additional unit of PRBC in PACU - MAP goal >85 - if requires pressors in PACU will consider SICU transfer - dex 4q6 - [employer] SUPERVISOR for pain - periop abx - ADAT - PT/OT Stephan Tong MD PGY2 Neurosurgery Pager [phone] Please page [phone] on weekends or before 6am and after 6pm [facility] 10-04-2023 Note HNO ID: [id number] Author: KRYSTINA DOTSON APRN.TANNING SOLUTION MAKER Service: ? Author Type: Nurse Blacksmith Hammer Operator Type: Anesthesia Procedure Notes Filed: 10/04/2023 19:49 Note Text: ANESTHESIOLOGY PROCEDURE NOTE PIV General Information Procedure Start Time/Medication Administration: 10/04/2023 7:10 PM Patient Location: OR Staffing Anesthesiologist: Dilia Wright MD Performed by: anesthesiologist Preparation Sterility Preparation: hand hygiene performed prior to procedure, surgical cap used, mask used, skin prep agent completely dried prior to procedure Site Prep: alcohol Procedure Details Indication: need for IV access Needle Size/Type: 16 gauge angiocath Orientation: Right Location: EJ Imaging Guidance Used: No SIGNATURE: Krystina Dotson APRN.CRNA PATIENT NAME: Sofia Gil DATE: October 04, 2023 TIME: 7:48 PM CSN: [id number] [facility] 10-04-2023 Note HNO ID: [id number] Author: KRYSTINA DOTSON APRN.TANNING SOLUTION MAKER Service: ? Author Type: Nurse Blacksmith Hammer Operator Type: Anesthesia Procedure Notes Filed: 10/04/2023 19:48 Note Text: ANESTHESIOLOGY PROCEDURE NOTE A-Line General Information Procedure Start Time/Medication Administration: 10/04/2023 6:01 PM Patient location during procedure: OR Timeout Performed Pre-procedure: timeout performed Indications: continuous blood pressure monitoring and blood sampling needed Staffing Anesthesiologist: Dilia Wright MD Performed by: anesthesiologist Preparation Sterility Preparation: hand hygiene performed prior to procedure, sterile gloves, drapes, and procedure tray, surgical cap used, mask used, sterile drape used during line insertion, skin prep agent completely dried prior to procedure Site Prep: Chloraprep Procedure Details Catheter Type: arterial line Catheter Size: 20 G Catheter Length: 2 in Micropuncture Kit Used: No Guidewire Used: Yes Guidewire Removed Intact: Yes Laterality: right Site: radial artery Ultrasound Guided: Yes Image in Chart: No Sites: potential access sites evaluated, selected vessel patent, concurrent real time ultrasound visualization of vascular needle entry Vessel: target vessel identified and guidewire advanced into vessel Line Secured: occlusive biodressing Comments 2 attempts on left radial artery, unable to pass guidewire. SIGNATURE: Krystina Dotson APRN.CRNA PATIENT NAME: Sofia Gil DATE: October 04, 2023 TIME: 7:46 PM CSN: [id number] [facility] 10-04-2023 Note HNO ID: [id number] Author: KRYSTINA DOTSON APRN.TANNING SOLUTION MAKER Service: ? Author Type: Nurse Blacksmith Hammer Operator Type: Anesthesia Procedure Notes Filed: 10/04/2023 19:44 Note Text: ANESTHESIOLOGY PROCEDURE NOTE PIV General Information Procedure Start Time/Medication Administration: 10/04/2023 5:48 PM Patient Location: OR Staffing TANNING SOLUTION MAKER: Krystina Dotson APRN.TANNING SOLUTION MAKER Performed by: TANNING SOLUTION MAKER Preparation Sterility Preparation: hand hygiene performed prior to procedure, surgical cap used, mask used, skin prep agent completely dried prior to procedure Site Prep: alcohol Procedure Details Indication: need for IV access Needle Size/Type: 18 gauge angiocath Orientation: Right Location: Wrist Imaging Guidance Used: No SIGNATURE: Krystina Dotson APRN.CRNA PATIENT NAME: Sofia Gil DATE: October 04, 2023 TIME: 7:43 PM CSN: [id number] [facility] 10-04-2023 Note HNO ID: [id number] Author: DILIA WRIGHT MD Service: ? Author Type: Student Type: Anesthesia Procedure Notes Filed: 10/04/2023 20:06 Note Text: Attestation signed by Dilia Wright MD at 10/04/2023 8:06 PM I personally supervised the procedure. 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 Staffing TANNING SOLUTION MAKER: Krystina Dotson APRN.TANNING SOLUTION MAKER SRNA: Deanna Lopez SRNA Performed by: RICHARDSON Indications and Patient Condition Indications for airway management: anesthesia and airway protection Preoxygenated: yes anesthesia circuit Patient position: sniffing Method: asleep Cricoid Pressure: Yes Difficult Mask: No Final Airway Details Final airway type: endotracheal airway Final Endotracheal Airway: ETT Cuffed: yes Successful intubation technique: video laryngoscopy Devices used: Boyer Endotracheal tube insertion site: oral Blade: Yobani Blade size: #3 ETT size (mm): 6.5 Measured from: lips Measurement (cm): 21 Placement verified by: capnometry Cormack-Lehane Classification: grade I - full view of glottis Number of attempts at approach: 1 Airway not difficult SIGNATURE: RICHARDSON Henderson PATIENT NAME: Sofia Gil DATE: October 04, 2023 TIME: 6:21 PM CSN: [id number] [facility] Summary Purpose Family History No Family History Records FoundNo Family History Records Found Advance Directives No Advanced Directives Records FoundNo Advanced Directives Records Found Additional Source Comments INFORMATION SOURCE (unrecogn ized section and content) DATE CREATED AUTHOR AUTHOR'S ORGANIZ ATION 10/16/2023 [facility] FOR RECORDS PERTAINING TO PATIENTS WHO ARE [...] BE BASED ON THE PRIMARY CLINICAL RECORDS. [email or web address] provides no warranty or guarantee of the accuracy or completeness of information in this document.
[2023-10-16 16:22] VITALS: BP 122/85; PULSE 94; RESP 18; TEMP 37.2; O2SAT 95; BMI 28.6
[2023-10-16 19:50] VITALS: BP 118/79; PULSE 85; RESP 16; TEMP 36.8; O2SAT 97
[2023-10-16] MEDS: Heparin Injection (Vial) 5,000 UNIT/ML VIAL 5000 UNIT SC (20:35)
[2023-10-16 22:00] VITALS: PULSE 84; RESP 16; O2SAT 96
[2023-10-17] MEDS: Acetaminophen 500 MG Tablet 1000 MG PO (05:23)
[2023-10-17 05:40] LABS: Absolute Lymphocyte Count 2.37 X10^3/uL (0.83-4.51); Absolute Neutrophil Count 11.3 X10^3/uL (2.0-7.7); Basophil# 0.03 X10^3/uL; Basophil% 0.2 % (0-1); Eosinophil# 0.14 X10^3/uL; Eosinophils% 0.9 % (0-5); Hematocrit 38.2 % (37-47); Hemoglobin 12.5 g/dL (12.0-15.0); Lymphocyte # 2.37 X10^3/ul (0.83-4.51); Lymphocyte % 15.6 % (19-41); Mean Corp Hgb Conc 32.7 g/dL (32-36); Mean Corpuscular Hgb 29.4 pg (27.0-32.0); Mean Corpuscular Volume 89.9 fL (81-99); Mean Platelet Vol. 8.7 fl (6.2-12.0); Monocyte# 1.03 X10^3/uL; Monocyte% 6.8 % (0-10); NRBC Flagged by Analyzer 0 % (0-5); Neutrophil # 11.26 X10^3/uL (2.7-7.7); Neutrophil % 74.4 % (47-70); Platelet Count 400 K/mm3 (150-450); RBC Distribution Width CV 13.9 % (11.6-14.6); RBC Distribution Width SD 45.2 fl (35.1-43.9); Red Blood Count 4.25 M/mm3 (4.2-5.4); White Blood Count 15.2 K/mm3 (4.4-11.0)
[2023-10-17 06:05] LABS: ALB/GLOB Ratio 0.6 RATIO (0.9-2.4); AST(SGOT) 39 U/L (15-37); Alanine Aminotransfer ALT/SGPT 79 U/L (13-56); Albumin, Serum 2.4 g/dL (3.2-5.0); Alkaline Phosphatase 128 U/L (45-117); Anion Gap 6 (5-15); BUN 25 mg/dL (7-18); BUN/Creat Ratio 56.4 RATIO (10-20); Calcium,Total 9.3 mg/dL (8.5-10.1); Chloride 105 mmol/L (98-107); Creatinine, Serum 0.44 mg/dL (0.55-1.02); EST Glomerular Filtration Rate 161 mL/min (>60); Est Glom Filt Rate - Afr Amer 195 mL/min (>60); Globulin 4.2 g/dL (2.2-4.2); Glucose 99 mg/dL (74-106); Magnesium 2.2 mg/dL (1.6-2.6); Phosphorus 4.8 mg/dL (2.5-4.9); Protein, Total 6.6 g/dL (6.4-8.2); Sodium Level 135 mmol/L (136-145)
[2023-10-17 07:23] VITALS: O2SAT 96
[2023-10-17 07:41] VITALS: BP 122/82; PULSE 78; RESP 16; TEMP 36.8; O2SAT 95
[2023-10-17] MEDS: Multivitamins,Therapeutic Tablet 1 TABLET PO (08:24)
[2023-10-17] MEDS: Heparin Injection (Vial) 5,000 UNIT/ML VIAL 5000 UNIT SC ×2 (08:24→22:03)
--- NOTE | 2023-10-17 14:19 | HP.PCM_ITS ---
HPI - General General Date of Admission: 10/16/23 Date of Service: 10/17/23 Chief Complaint: physical debility due to spinal stenosis related to a tumor. HPI Narrative MARTHA GIL, is a 48 F who presented to the ED at [facility] on 10/04/2023 co mplaining of mid/low back pain that began in April 2023. She saw a chiropractor and it seemed to get a little better but a few days prior to presenting to the emergency department pain became intractable and she was taking large amounts of Motrin. She also complained that she had decreased sensation and weakness in her legs and did not feel that her legs were working right . She also told the ED physician that she felt a mass in her breast in 2016 and she opted to treat it naturally . She denied any problems with urinary or fecal incontinence. On physical examination she had decreased rectal tone and decreased sensation when a Mijares catheter was inserted. When the Mijares was inserted she had 2 L of urine in the bladder. She had minimal movement against gravity for the bilateral lower extremities. There was decreased sensation in both lower extremities. CT of the chest/abdomen/pelvis were ordered. CT scan of the abdomen and pelvis showed multiple hypodense lesions throughout the liver measuring up to 2 cm consistent with metastatic disease, a complex cystic left adnexal lesion measuring 6.1 x 4.9 cm and multiple sclerotic lesions throughout the visualized osseous structures consistent with metastatic disease with a pathologic compression fracture of T12 with mildly retropulsed fracture fragment. The CT chest showed multiple metastatic lesions in the thoracic spine and sternum. There was pathologic compression fractures of T5 and T12. There was a soft tissue mass associated with the T5 fracture which extended through the posterior vertebral body margin into the epidural space causing severe central canal stenosis with compression of the thoracic spinal cord. There was a large irregular right breast mass measuring 6.8 cm and multiple metastatic nodules throughout both lungs. After reviewing the results of the CT scans and MRI of the lumbar spine was ordered and showed a pathologic compression deformity of T12 causing mild spinal stenosis and a 12 mm sclerotic metastasis of the L2 vertebral body. MRI of the thoracic spine showed extensive metastatic disease involving multiple thoracic vertebral bodies, lungs and liver. There was marked cord compression at T5 secondary to compression and expansion of the T5 vertebral body and left pedicle due a soft tissue mass associated with cord edema. There was mild spinal stenosis at the T12 level related to a compression fracture of T12. She was transferred to [facility] and was excepted by Dr. Mayers from spine surgery. She was taken to surgery on 10/04/2023 and had T2-L2 posterior instrumented fusion and T5/6 decompression with a transpedicular approach for tumor resection. The postoperative course was complicated by thrombocytopenia and anemia requiring 1 unit of platelets and 1 unit of packed red blood cells. She was seen in consult by rehabilitative medicine prior to DC from [facility] and acute inpt rehab was recommended but, the retirement consultant was not aware of the tumor diagnosis at the time of the consult. She was transferred to the acute inpt rehab unit at [facility] on 10/16/23 for 3 hours of therapy daily. 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 Martha failed a voiding trial prior to discharge from [facility] and she was diagnosed with a neurogenic bladder. Mijares catheter was reinserted. She is incontinent of stool. Pathology on the resected T5 tumor was consistent with metastatic breast carcinoma. An appointment was scheduled for [place] with Dr. Nacho Brizuela in [place] for 10/18/2023 to discuss treatment for metastatic breast carcinoma. This appointment was canceled because the patient is not allowed to leave acute rehab to go to an OP appt. To do this she would need to be discharged from rehab (which is considered part of the acute hospital)and she will have to follow-up with Dr. Brizuela post discharge from acute rehab. [facility] Medical History no medical history Home Medications acetaminophen 500 mg tablet 1,000 mg PO Q8 pain 10/16/23 [History Last Taken Unknown] methocarbamol 500 mg tablet 500 mg PO Q6H PRN muscle spasm 10/16/23 [History Last Taken Unknown] multivitamin (Daily Multi-Vitamin tablet) 1 tab PO DAILY supplement 10/16/23 [History Last Taken Unknown] oxycodone 5 mg tablet 5 mg PO Q6H PRN pain 10/16/23 [History Last Taken Unknown] Allergy/AdvReac Type Severity Reaction Status Date / Time No Known Allergies Allergy Verified 10/04/23 04:57 Family History (Updated 10/18/23 @ 19:[address] Genet Rm DO) Grandmother No problems noted. Mother , Mother was at the age of 66 of breast cancer. She had a mastectomy but refused chemotherapy. Cancer Family History unable to obtain Surgical History (Updated 10/18/23 @ 19:[address] Genet Rm DO) History of spinal fusion Surgical History no surgical history Social History (Updated 10/18/23 @ 19:[address] Genet Rm DO) household members: spouse, children and other details: Her son's name is Nacho Billingsley and he is 5 years old. 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 Smoking Status: Never smoker alcohol intake: never substance use type: does not use and other details: Cannabis ROS Constitutional Constitutional: Reports weakness; Denies anorexia, change in weight, chills, daytime sleepiness, fatigue, fever(s), headache(s) or night sweats Eyes Eyes: Denies blurry vision, change in vision, eye pain or loss of vision ENT HEENT: Denies abnormal hearing, dysphagia, headache(s), hearing loss, nasal congestion or sore throat Cardiovascular Cardiovascular: Denies chest pain, dyspnea on exertion, edema, lightheadedness, orthopnea, palpitations, paroxysmal nocturnal dyspnea or syncope Respiratory/Chest Respiratory/Chest: Denies cough, dyspnea, shortness of breath at rest, shortness of breath with exertion or wheezing Gastrointestinal Gastrointestinal: Reports other Details: Having fecal incontinence ; Denies abdominal pain, constipation, diarrhea, dyspepsia, dysphagia, heartburn, hematemesis, hematochezia, nausea or vomiting Genitourinary Genitourinary: Reports urinary incontinence and other Details: Urine retention necessitating the use of a Mijares catheter ; Denies dysuria, hematuria or nocturia Musculoskeletal Musculoskeletal: Denies back pain, joint pain, joint swelling or neck pain Neurologic Neurologic: Reports focal weakness; Denies confusion, disequilibrium, dizziness, headache(s), paresthesias, seizures or tremor(s) Psychiatric Psychiatric: Denies anxiety, depression, homicidal ideation or suicidal ideation Endocrine Endocrinology: Denies change in body appearance, polydipsia or polyuria Hematologic/Lymphatic Hematologic/Lymphatic: Denies easy bleeding, easy bruising or lymphadenopathy Allergic/Immunologic Allergic/Immunologic: Denies rhinitis, eczemia or asthma Vital Signs Vital Signs Vital Signs: 10/16/23 16:22 10/16/23 19:50 10/16/23 22:00 Temperature 99.0 F 98.3 F Temperature Source Temporal Temporal Pulse Rate 94 85 84 Respiratory Rate 18 16 16 Respiratory Effort Normal Non-Labored Respiratory Depth Normal Respiratory Pattern Normal Blood Pressure 122/85 H 118/79 Blood Pressure Mean 97 92 Blood Pressure Source Monitor Monitor Blood Pressure Position Semi-Fowlers Semi-Fowlers Blood Pressure Location Left Arm Left Arm Pulse Ox 95 97 96 Oxygen Delivery Method Room Air Room Air Room Air 10/17/23 07:23 10/17/23 07:41 Temperature 98.2 F Temperature Source Temporal Pulse Rate 78 Respiratory Rate 16 Respiratory Effort Respiratory Depth Respiratory Pattern Blood Pressure 122/82 H Blood Pressure Mean 95 Blood Pressure Source Monitor Blood Pressure Position Semi-Fowlers Blood Pressure Location Left Arm Pulse Ox 96 95 Oxygen Delivery Method Room Air Room Air Weight Weight: 137 lb 2.04 oz Body Mass Index (BMI) 28.6 Physical Exam Const alert, oriented x3 and no apparent distress General Appearance: cooperative and well kempt Nutritional Appearance: Negative for cachectic or obese HEENT HEENT Narrative: Mucous membranes are dry. There is no posterior pharyngeal exudate or erythema. No evidence of thrush. Eyes PERRL, EOMs intact bilaterally, conjunctivae normal and no scleral icterus Eyes Narrative: No mattering of the eye lashes send no discharge from the eyes. 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 No visual field cuts. General Eye: normal light reflex Neck No nuchal rigidity and no carotid bruits General: trachea midline; Negative for JVD Chest Chest: symmetrical chest wall rise Resp normal respiratory effort, normal air movement, no use of accessory muscles and clear to auscultation bilaterally Effort and Inspection: able to speak in complete sentences Cardio regular rate, regular rhythm, S1 normal heart sound, S2 normal heart sound, no murmurs, no rub and no gallops Cardio Narrative: No ectopy GI normal to inspection, nondistended, normoactive bowel sounds, soft to palpation, non-tender and non-distended GI Narrative: No guarding with palpation. Narrative: Mijares catheter is in place and the urine is pale yellow and clear. Back/Spine Back/Spine Narrative: The incision extends from the base of the neck to the tailbone posteriorly. There is no dehiscence, no shruthi-incisional erythema and no discharge. Extremity no calf tenderness Extremity Narrative: She has some nonpitting edema of the feet. Skin Skin Narrative: Small stage II decubitus ulcer at the proximal end of the gluteal cleft. No odor, no purulent discharge and no erythema. She is incontinent of stool. Neuro oriented x3 and CN's II-XII intact bilaterally Neuro Narrative: She has no active motion of either LE. Foot drop is present BL. No sensation from the toes to the upper epigastric area circumferentially. BL foot drop. The patellar and the achilles reflexes are 2+ BL. No ankle clonus detected. 5/5 strength in the upper extremities. She is unable to control her trunk and ca n not sit at the edge of the bed and maintain an upright posture. Deep Tendon Reflexes: Rt Patellar (L4): 2+, Lt Patellar (L4): 2+, Rt Ankle (S1): 2+ and Lt Ankle (S1): 2+ Coordination: [id number] test normal and [id number] test normal (Unable to move either lower extremity) Psych thought process normal and cooperative Psych Narrative: She seems upbeat but, I see her tear up when we are talking about her 5 YO son. Appearance: grossly normal, appropriate and well kempt Attitude: calm Results Lab / Micro Data 10/17/23 05:30 10/17/23 05:30 Labs: Laboratory Results - last 24 hr 10/17/23 05:30: WBC 15.2 H, RBC 4.25, Hgb 12.5, Hct 38.2, MCV 89.9, MCH 29.4, MCHC 32.7, RDW Std Deviation 45.2 H, RDW Coeff of Mimi 13.9, Plt Count 400, MPV 8.7, Immature Gran % (Auto) 2.100 H, Neut % (Auto) 74.4 H, Lymph % (Auto) 15.6 L , [place] % (Auto) 6.8, Eos % (Auto) 0.9, Baso % (Auto) 0.2, Absolute Neuts (auto) 11.3 H, Absolute Lymphs (auto) 2.37, Nucleated RBC % 0, Sodium 135 L, Potassium 4.0, Chloride 105, Carbon Dioxide 24.0, Anion Gap 6, BUN 25 H, Creatinine 0.44 L , Estim Creat Clear Calc 128.80, Est GFR (MDRD) Af Amer 195, Est GFR (MDRD) Non- Af 161, BUN/Creatinine Ratio 56.4 H, Glucose 99, Calcium 9.3, Phosphorus 4.8, Ma gnesium 2.2, Total Bilirubin 0.70, AST 39 H, ALT 79 H, Alkaline Phosphatase 128 H, Total Protein 6.6, Albumin 2.4 L, Globulin 4.2, Albumin/Globulin Ratio 0.6 L Assessment & Plan Assessment/Plan (1) Physical debility: (2) Myelopathy: (3) Paraplegia at T4 level: (4) Neurogenic bladder: (5) Fecal incontinence: QUALIFIERS: Fecal incontinence type: full incontinence of feces Qualified Code(s): R15.9 - Full incontinence of feces (6) History of spinal fusion: (7) Breast cancer in female: (8) Hypercalcemia: (9) Abnormal LFTs: (10) Intravascular volume depletion: (11) Hypoalbuminemia: (12) Hyponatremia: (13) History of transfusion of platelets: (14) History of transfusion of packed RBC: PLAN: Plan PLAN PT for gait stability OT for ADL's Analgesics as needed - she has T4 paraplegia and has no pain at this time Bowel protocol Fall precautions Assess for Anxiety/Depression GI prophylaxis - not at this time. she is asymptomatic and has no hx of PUd or GERD DVT prophylaxis with heparin 5000 units subcu twice daily, SCDs and SHARON vasquez Follow up with primary care physician, neurosurgeon, Dr. Nacho Brizuela following DC from [facility] AM lab including CMP, CBC, Mag and Phos - personally reviewed. I suspect the hypercalcemia is secondary to both metastatic disease to bone and also due to immobility. Urine outputs are exceeding oral intake. Will check a PTH. May need to tx with pamidronate to decrease diuresis. she will need to be functional to be treated for metastatic breast and with the T4 paraplegia I am not sure he will be a candidate for tx. Will reschedule the appt with Dr. Brizuela when we have a DC date from rehab established. Charges/Coding Visit Charges Inpatient E&M: 27739 Init Hosp L3
[2023-10-17 19:26] VITALS: BP 124/49; PULSE 87; RESP 16; TEMP 36.3; O2SAT 98
[2023-10-18 07:21] VITALS: BP 127/77; PULSE 84; RESP 16; TEMP 37; O2SAT 96
[2023-10-18 07:25] VITALS: O2SAT 95
[2023-10-18] MEDS: Multivitamins,Therapeutic Tablet 1 TABLET PO (07:55)
[2023-10-18] MEDS: Heparin Injection (Vial) 5,000 UNIT/ML VIAL 5000 UNIT SC ×2 (07:55→21:37)
--- NOTE | 2023-10-18 12:05 | REHABEVAL_ITS ---
Admission Information Primary Diagnosis:: Debility secondary to severe thoracic spinal cord compression secondary to metastatic breast tumor at T5 with T4 paraplegia Status Changes from Prescreening?: No changes Identified Actual Problem List:: Skin Intergrity, Pain, ALteration in Cmfrt, Bladder Incont inence (She has neurogenic bladder and Mijares catheter is in place.), Bowel, Incontinence, Alteration in Sleep, Mobility Impaired, Self Care Deficit, Know.Dfct of Medicaitons and Alteration-Leisure Activ. Potential Problem List:: DVT, Bleeding, Infection, UTI, Aspiration, Falls, Skin Integrity and Depression Risk of Complications DVT: SHARON Hose, Sequential Compression Device and - (Heparin 5000 units SQ every 12 hours) Bleeding: Monitor Lab Values, Nursing to Teach Precautions for anti-coagulation therapy., Wound, if applicable, to be assessed every shift. and Stroke patients assessed for lethargy or change in status. Infection: Clinical Staff to Monitor for S/S of infection: and S/S of infection include fever, redness, warmth, etc. Urinary Tract Infection: Monitor for frequency, burning, discomfort, or incontinence. and Nursing will obtain urine sample for urinalysis and C&S when ordered. Aspiration: Clinical staff will monitor for coughing, drooling, congestion., Speech will evaluate swallowing and dsyphasia. and Nursing will monitor patient swallowing during meals. Falls: Patient will be evaluated for Fall Precautions and Patient will be placed on Fall Precautions as indicated per protocol. Skin Breakdown: Nursing will assess skin daily using assessment tool. and Nursing will place on Skin Breakdown Precautions as indicated. Pain: Clinical staff will assess patient's pain level per protocol., Medications will be given, if needed, and the pain level reassessed. and Other methods: Massage, distraction, decrease stimulus, etc. used PRN. Plan of Care Patient requires physician specializing in physical medicine and rehab oversight to provide close medical supervision of rehab issues including: Pain Management, Sleep Problems, Bowel and Bladder, Medical and co-morbidity Management, DVT prophylaxis, Rehabilitation Leadership and Coordination of treatment team Patient needs Physical Therapy: For a minimum of 1 hour and At least 5 out of 7 days Patient needs Physical Therapy to improve:: Mobility, Strengthening, Transfers, Stretching, ROM, Endurance, Stairs, Gait and Balance Patient needs Occupational Therapy: For a minimum of 1 hour and At least 5 out of 7 days Patient needs Occupational Therapy to improve ADL's incl.: Eating, Grooming, Bathing, Dressing, Toileting, Toilet transfers, Community Reintegration, Higher functioning activities, Household tasks, Adaptive Equipment, Splinting and Other activities as determined Patient requires 24/7 Rehabilitation Nursing for: Pain Issues, Identifying and preventing risk factors, Monitoring and reporting current medical conditions, Assisting with ambulation, transfer, and all ADL's, Teaching patients about disease process and medications, Family teaching, Providing safe environment, Bowel and Bladder Issues, Skin integrity and Medication Management Patient needs Photo Tube Assembler/ Case Management for: Discharge Planning, Arranging Home Equipment or Services and Family Interventions Patient needs Dietary and Nutrition Services for: Adequate Nutrition, Nutritional Supplements and Nutritional Education Goals Goals Patient will remain: free from falls Patient will perform eating at: MOD I level of assist. Patient will perform bed mobility at: - (Minimal assistance) Patient will complete transfers from bed to chair at: - (With a sliding board at minimal assistance) Patient will propel wheelchair: 100 feet (On various surfaces at standby assist. She will complete sliding board transfers at min assist ) Patient will complete lower body dressing at: MOD I level of assist. (With appropriate adaptive equipment.) Patient will complete toilet transfer at: MOD I level of assist. Patient will complete toileting at: MOD I level of assist. Patient will perform bathing at: - (Patient will complete upper body bathing at independent level and lower body bathing at mod I with adaptive equipment as needed.) Patient will complete grooming at: MOD I level of assist. (While seated at the sink.) Patient will achieve: - (Stairs or not a goal for her at this time.) Patient will have pain level of: of 3 or less Patient's skin will: remain intact Patient will receive: adequate nutrition. Discharge Planning Pt Prognosis for Sig. Practical Improv. w/in Reasonable Time: Fair Estimated Length of stay (days): 21 Anticipated D/C Destination: Home w/ family or friends Was Preadmission Assessment Accurate?: Yes
--- NOTE | 2023-10-18 12:09 | PCM.PROGNOTE ---
Subjective Subjective Martha was seen on team rounds today. Her and a friend were present in the room. All their questions were answered to their satisfaction. Afebrile VSS Maintaining appropriate oxygen saturation on RA Oral intake is good Discussed with nursing - no problems that need addressed. Sleeping well. Refusing Tylenol because she is not in pain. Reviewed the PT/OT/ST notes Medication list reviewed. Dzy-jys-gldi mattress was ordered yesterday and it was delivered last night. Martha denies feeling depressed or anxious. She has a good appetite and tells me she is sleeping well at night. She denies pain and has not taken any oxycodone since admission to rehab. She looks forward to visits from her son and she has a good attitude. Wants to know if she can have someone come in and massage her back. I discouraged this due to the incision and risk of infection. Martha denies lightheadedness, vertigo, CP, SOB at rest, SOB with exertion, cough, nausea, vomiting, abd pain, diarrhea, constipation and dysuria. She is still incontinent of stool. Urine in the Mijares bag is pale yellow and clear Objective Data Objective Data Vital Signs: Vital Signs Temp Pulse Resp BP Pulse Ox O2 Del Method 98.6 F 84 16 127/77 H 95 Room Air 10/18/23 07:21 10/18/23 07:21 10/18/23 07:21 10/18/23 07:21 10/18/23 07:25 10/18/23 07:25 Oxygen Delivery Method Room Air Weight: 137 lb 2.04 oz Body Mass Index (BMI) 28.6 Intake & Output: Intake and Output for Last 24 Hours 10/16/23 10/17/23 10/18/23 23:59 23:59 23:59 Intake Total 600 / 600 1490 / 1490 480 / 480 Output Total 770 / 770 1925 / 2925 1200 / 1200 Balance -170 / -170 -435 / -1435 -720 / -720 Lab / Micro Data 10/19/23 05:49 10/22/23 05:39 Physical Exam Const alert, oriented x3 and no apparent distress Constitutional Narrative: Lying in bed. Has her shoes on to help prevent foot drop. General Appearance: cooperative Orientation / Consciousness: Negative for confused Nutritional Appearance: Negative for cachectic or obese HEENT moist oral mucous membranes Eyes PERRL, EOMs intact bilaterally, conjunctivae normal and no scleral icterus Eyes Narrative: No mattering of the eye lashes send no discharge from the eyes. 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 No visual field cuts. General Eye: normal light reflex Neck No nuchal rigidity and no carotid bruits General: trachea midline; Negative for JVD Chest Chest: symmetrical chest wall rise Resp normal respiratory effort, normal air movement and clear to auscultation bilaterally Resp Narrative: No conversational dyspnea Effort and Inspection: Negative for tachypneic Cardio regular rate, regular rhythm, no murmurs and no gallops Cardio Narrative: HR is WNL but it is now in the 90's....more likely than not due to IV volume depletion. GI normal to inspection, nondistended, normoactive bowel sounds, soft to palpation and non-tender GI Narrative: No guarding with palpation Narrative: Mijares catheter is in place and the urine is pale yellow and clear. Back/Spine Back/Spine Narrative: The incision extends from the base of the neck to the tailbone posteriorly. There is no dehiscence, no shruthi-incisional erythema and no discharge. Extremity no calf tenderness Extremity Narrative: can not feel pain in the legs/calves but, she is a T4 paraplegic and has no feeling below the mid epigastric area. General Extremity: Negative for edema Skin Skin Narrative: Small stage II decubitus ulcer at the proximal end of the gluteal cleft. No odor, no purulent discharge and no erythema. She is incontinent of stool. General Skin Exam: no breakdown Rashes: no rashes Neuro oriented x3 and CN's II-XII intact bilaterally Neuro Narrative: She has no active motion of either LE. Foot drop is present BL. No sensation from the toes to the upper epigastric area circumferentially. BL foot drop. The patellar and the achilles reflexes are 2+ BL. No ankle clonus detected. 5/5 strength in the upper extremities. She is unable to control her trunk and can not sit at the edge of the bed and maintain an upright posture. Deep Tendon Reflexes: Rt Patellar (L4): 2+, Lt Patellar (L4): 2+, Rt Ankle (S1): 2+ and Lt Ankle (S1): 2+ Coordination: [id number] test normal and [id number] test normal (Unable to move either lower extremity) Psych thought process normal, cooperative and affect normal Psych Narrative: She seems upbeat but, I see her tear up when we are talking about her 5 YO son. Appearance: appropriate Attitude: calm Mood & Affect: Negative for depressed, anxious or flat affect Assessment & Plan Assessment/Plan (1) Physical debility: (2) Myelopathy: (3) Paraplegia at T4 level: (4) Neurogenic bladder: (5) Fecal incontinence: QUALIFIERS: Fecal incontinence type: full incontinence of feces Qualified Code(s): R15.9 - Full incontinence of feces (6) History of spinal fusion: (7) Breast cancer in female: (8) Hypercalcemia: (9) Abnormal LFTs: (10) Intravascular volume depletion: (11) Hypoalbuminemia: (12) Hyponatremia: (13) History of transfusion of platelets: (14) History of transfusion of packed RBC: PLAN: Plan 1. Continue therapy 2. I discussed the high calcium and the symptoms of hypercalcemia with Martha and she is agreeable to a dose of Pamidronate. Give 90 mg IV today and recheck the calcium . The high calcium is likely multifactorial and due to immobility and bone mets. 3. If the HR is still in the 90's or higher tomorrow may do some IV NS. Charges/Coding Visit Charges Inpatient E&M: 50872 Subs Hosp L2
[2023-10-18] MEDS: Juven (unflavored) Packet 1 PACKET PO (17:00)
[2023-10-18 19:30] VITALS: BP 125/83; PULSE 80; RESP 15; TEMP 36.4; O2SAT 98
[2023-10-18] MEDS: Menthol/Lanolin/Calamine/Znox 113 GM Tube 1 APPLIC TOPICAL (21:37)
[2023-10-18] MEDS: Acetaminophen 500 MG Tablet 1000 MG PO (21:37)
[2023-10-19] MEDS: Menthol/Lanolin/Calamine/Znox 113 GM Tube 1 APPLIC TOPICAL ×2 (05:55→20:25)
[2023-10-19 06:00] VITALS: BMI 28.8
[2023-10-19 06:00] LABS: Hematocrit 35.5 % (37-47); Hemoglobin 11.7 g/dL (12.0-15.0); Mean Corpuscular Hgb 29.8 pg (27.0-32.0); Mean Corpuscular Volume 90.6 fL (81-99); Mean Platelet Vol. 8.6 fl (6.2-12.0); Platelet Count 339 K/mm3 (150-450); RBC Distribution Width SD 46.3 fl (35.1-43.9); Red Blood Count 3.92 M/mm3 (4.2-5.4); White Blood Count 9.3 K/mm3 (4.4-11.0)
[2023-10-19 06:48] LABS: Anion Gap 3 (5-15); BUN 21 mg/dL (7-18); BUN/Creat Ratio 46.9 RATIO (10-20); Calcium,Total 9.9 mg/dL (8.5-10.1); Chloride 108 mmol/L (98-107); Creatinine, Serum 0.45 mg/dL (0.55-1.02); EST Glomerular Filtration Rate 159 mL/min (>60); Est Glom Filt Rate - Afr Amer 192 mL/min (>60); Estimated Creatinine Clearance 125.94 ml/min; Glucose 94 mg/dL (74-106); Potassium 4.1 mmol/L (3.5-5.1); Sodium Level 138 mmol/L (136-145)
[2023-10-19 07:41] LABS: PTHIN 10.9 pg/mL (18.4-80.1)
[2023-10-19] MEDS: Multivitamins,Therapeutic Tablet 1 TABLET PO (07:57)
[2023-10-19] MEDS: Heparin Injection (Vial) 5,000 UNIT/ML VIAL 5000 UNIT SC ×2 (07:57→21:48)
[2023-10-19] MEDS: Juven (unflavored) Packet 1 PACKET PO ×2 (07:57→17:04)
[2023-10-19 08:12] VITALS: BP 113/76; PULSE 71; RESP 17; TEMP 36.6; O2SAT 94
[2023-10-19 08:14] VITALS: O2SAT 97
[2023-10-19 11:53] VITALS: BMI 23.1
--- NOTE | 2023-10-19 20:00 | NURSING ---
This nurse went into room to start an IV for administration of fluids. Pt stated that she would rather not have an IV inserted and expressed concern about her arms being bruised. She stated that she will make sure to drink plenty of water.
[2023-10-19 20:18] VITALS: BP 135/83; PULSE 95; RESP 18; TEMP 37; O2SAT 96
[2023-10-20] MEDS: Menthol/Lanolin/Calamine/Znox 113 GM Tube 1 APPLIC TOPICAL ×2 (05:13→20:58)
[2023-10-20] MEDS: Juven (unflavored) Packet 1 PACKET PO ×2 (08:50→16:34)
[2023-10-20] MEDS: Heparin Injection (Vial) 5,000 UNIT/ML VIAL 5000 UNIT SC ×2 (08:50→20:57)
[2023-10-20] MEDS: Multivitamins,Therapeutic Tablet 1 TABLET PO (08:51)
[2023-10-20 10:00] VITALS: BP 128/85; PULSE 76; RESP 16; TEMP 36.6; O2SAT 96
[2023-10-20 21:00] VITALS: BP 130/94; PULSE 110; RESP 16; TEMP 37.1; O2SAT 92
[2023-10-20 23:27] VITALS: BMI 23.8
[2023-10-21] MEDS: Menthol/Lanolin/Calamine/Znox 113 GM Tube 1 APPLIC TOPICAL ×2 (05:03→20:31)
[2023-10-21 07:22] VITALS: BP 128/86; PULSE 86; RESP 16; TEMP 36.5; O2SAT 95
[2023-10-21] MEDS: Juven (unflavored) Packet 1 PACKET PO ×2 (09:01→17:14)
[2023-10-21] MEDS: Heparin Injection (Vial) 5,000 UNIT/ML VIAL 5000 UNIT SC ×2 (09:01→20:31)
[2023-10-21] MEDS: Multivitamins,Therapeutic Tablet 1 TABLET PO (09:02)
[2023-10-21 19:14] VITALS: BP 129/83; PULSE 81; RESP 17; TEMP 36.2; O2SAT 97
[2023-10-21 20:39] VITALS: PULSE 83; RESP 16; O2SAT 96
[2023-10-22 06:24] LABS: Albumin, Serum 2.4 g/dL (3.2-5.0); Anion Gap 4 (5-15); BUN 24 mg/dL (7-18); BUN/Creat Ratio 45.6 RATIO (10-20); Calcium,Total 9.7 mg/dL (8.5-10.1); Chloride 110 mmol/L (98-107); Creatinine, Serum 0.53 mg/dL (0.55-1.02); EST Glomerular Filtration Rate 132 mL/min (>60); Est Glom Filt Rate - Afr Amer 160 mL/min (>60); Estimated Creatinine Clearance 93.24 ml/min; Glucose 99 mg/dL (74-106); Magnesium 2.3 mg/dL (1.6-2.6); Potassium 3.9 mmol/L (3.5-5.1); Sodium Level 139 mmol/L (136-145)
[2023-10-22] MEDS: Menthol/Lanolin/Calamine/Znox 113 GM Tube 1 APPLIC TOPICAL ×2 (06:36→21:02)
[2023-10-22 07:47] VITALS: BP 115/82; PULSE 90; RESP 16; TEMP 36.3; O2SAT 95
[2023-10-22] MEDS: Juven (unflavored) Packet 1 PACKET PO ×2 (08:15→17:30)
[2023-10-22] MEDS: Multivitamins,Therapeutic Tablet 1 TABLET PO (08:15)
[2023-10-22] MEDS: Polyethylene Glycol 3350 17 GM PACKET PO (10:02)
[2023-10-22] MEDS: Heparin Injection (Vial) 5,000 UNIT/ML VIAL 5000 UNIT SC ×2 (10:02→21:01)
--- NOTE | 2023-10-22 15:03 | PCM.PROGNOTE ---
Subjective Subjective Afebrile VSS Maintaining appropriate oxygen saturation on RA Oral intake is good - doing very well with increased fluid intake however she is having increased urine OP and is requiring very frequent Attends changes. Discussed with nursing - no problems that need addressed. Sleeping well, eating well, no sx depression. Reviewed the PT/OT/ST notes Medication list reviewed. Denies pain, N/V/heartburn, diarrhea, palpitations, lightheadedness, cephalgia. Objective Data Objective Data Vital Signs: Vital Signs Temp Pulse Resp BP Pulse Ox O2 Del Method 97.4 F L 90 16 115/82 H 95 Room Air 10/22/23 07:47 10/22/23 07:47 10/22/23 07:47 10/22/23 07:47 10/22/23 07:47 10/22/23 07:47 Oxygen Delivery Method Room Air Weight: 113 lb 8.609 oz Body Mass Index (BMI) 23.8 Intake & Output: Intake and Output for Last 24 Hours 10/20/23 10/21/23 10/22/23 23:59 23:59 23:59 Intake Total 6450 / 6450 2800 / 2800 2350 / 2350 Output Total 6225 / 6225 3575 / 3575 1950 / 1950 Balance 225 / 225 -775 / -775 400 / 400 Lab / Micro Data 10/19/23 05:49 10/22/23 05:39 Labs: Laboratory Results - last 24 hr 10/22/23 05:39: Sodium 139, Potassium 3.9, Chloride 110 H, Carbon Dioxide 25.0, Anion Gap 4 L, BUN 24 H, Creatinine 0.53 L, Estim Creat Clear Calc 93.24, Est GFR (MDRD) Af Amer 160, Est GFR (MDRD) Non-Af 132, BUN/Creatinine Ratio 45.6 H, Glucose 99, Calcium 9.7, Magnesium 2.3, Albumin 2.4 L Physical Exam Const alert, oriented x3 and no apparent distress Constitutional Narrative: Lying in bed. Has her shoes on to help prevent foot drop. General Appearance: cooperative HEENT moist oral mucous membranes Resp clear to auscultation bilaterally Resp Narrative: No conversational dyspnea Effort and Inspection: Negative for tachypneic Cardio regular rate, regular rhythm, no murmurs and no gallops Cardio Narrative: No ectopy GI normal to inspection, nondistended, normoactive bowel sounds and soft to palpation GI Narrative: No guarding with palpation Extremity General Extremity: Negative for edema Skin General Skin Exam: no breakdown Rashes: no rashes Psych thought process normal, cooperative and affect normal Appearance: appropriate Mood & Affect: Negative for depressed, anxious or flat affect Assessment & Plan Assessment/Plan (1) Physical debility: (2) Myelopathy: (3) Paraplegia at T4 level: (4) Neurogenic bladder: (5) Fecal incontinence: QUALIFIERS: Fecal incontinence type: full incontinence of feces Qualified Code(s): R15.9 - Full incontinence of feces (6) History of spinal fusion: (7) Breast cancer in female: (8) Hypercalcemia: (9) Abnormal LFTs: (10) Intravascular volume depletion: (11) Hypoalbuminemia: (12) Hyponatremia: (13) History of transfusion of platelets: (14) History of transfusion of packed RBC: PLAN: Plan 1. Continue therapy 2. I discussed the high calcium and the symptoms of hypercalcemia with Martha and she is agreeable to a dose of Pamidronate. Give 90 mg IV today and recheck the calcium sun or Charges/Coding Visit Charges Inpatient E&M: 82904 Subs Hosp L2
[2023-10-22] MEDS: Pamidronate Disodium 90 MG in 0.9% Normal Saline (1000mL) 1,000 ML 333 MG IV (16:41)
[2023-10-22 20:03] VITALS: BP 131/89; PULSE 96; RESP 18; TEMP 36.7; O2SAT 97
[2023-10-23] MEDS: Menthol/Lanolin/Calamine/Znox 113 GM Tube 1 APPLIC TOPICAL ×2 (05:38→21:04)
[2023-10-23 07:43] VITALS: BP 120/84; PULSE 98; RESP 16; TEMP 36.8; O2SAT 96
[2023-10-23] MEDS: Juven (unflavored) Packet 1 PACKET PO ×2 (07:55→18:02)
[2023-10-23] MEDS: Multivitamins,Therapeutic Tablet 1 TABLET PO (07:55)
[2023-10-23] MEDS: Heparin Injection (Vial) 5,000 UNIT/ML VIAL 5000 UNIT SC ×2 (10:52→21:04)
[2023-10-23 19:57] VITALS: BP 128/90; PULSE 112; RESP 18; TEMP 38.6; O2SAT 95
[2023-10-23 21:00] VITALS: BP 115/77; PULSE 109; RESP 18; TEMP 36.9; O2SAT 94
[2023-10-24] MEDS: Menthol/Lanolin/Calamine/Znox 113 GM Tube 1 APPLIC TOPICAL ×2 (05:53→21:44)
[2023-10-24 07:50] VITALS: BP 121/81; PULSE 103; RESP 18; TEMP 36.8; O2SAT 94
[2023-10-24] MEDS: Juven (unflavored) Packet 1 PACKET PO (08:26)
[2023-10-24] MEDS: Multivitamins,Therapeutic Tablet 1 TABLET PO (08:26)
[2023-10-24] MEDS: Heparin Injection (Vial) 5,000 UNIT/ML VIAL 5000 UNIT SC ×2 (08:27→21:44)
[2023-10-24 20:00] VITALS: BP 111/75; PULSE 106; RESP 18; TEMP 37; O2SAT 95
[2023-10-25] MEDS: Menthol/Lanolin/Calamine/Znox 113 GM Tube 1 APPLIC TOPICAL ×2 (05:09→20:39)
[2023-10-25] MEDS: 0.9% Saline Lock 10 ML Syringe IV (05:18)
[2023-10-25 05:55] LABS: Hematocrit 35.4 % (37-47); Hemoglobin 11.4 g/dL (12.0-15.0)
[2023-10-25 06:31] LABS: Albumin, Serum 2.4 g/dL (3.2-5.0); Anion Gap 3 (5-15); BUN 16 mg/dL (7-18); BUN/Creat Ratio 37.6 RATIO (10-20); Calcium,Total 8.1 mg/dL (8.5-10.1); Chloride 105 mmol/L (98-107); Creatinine, Serum 0.42 mg/dL (0.55-1.02); EST Glomerular Filtration Rate 169 mL/min (>60); Est Glom Filt Rate - Afr Amer 204 mL/min (>60); Estimated Creatinine Clearance 117.66 ml/min; Glucose 97 mg/dL (74-106); Potassium 3.7 mmol/L (3.5-5.1); Sodium Level 134 mmol/L (136-145)
[2023-10-25 07:06] VITALS: BP 116/79; PULSE 89; RESP 18; TEMP 36.4; O2SAT 96
[2023-10-25] MEDS: Multivitamins,Therapeutic Tablet 1 TABLET PO (09:36)
[2023-10-25] MEDS: Juven (unflavored) Packet 1 PACKET PO (09:36)
[2023-10-25] MEDS: Heparin Injection (Vial) 5,000 UNIT/ML VIAL 5000 UNIT SC ×2 (09:36→20:38)
--- NOTE | 2023-10-25 12:11 | PCM.PROGNOTE ---
Subjective Subjective Kimball was seen on team rounds today. Family was present in the room. Afebrile VSS-heart rate has come down with hydration. Maintaining appropriate oxygen saturation on RA Oral intake is good I and O so far today is even. Discussed with nursing - no problems that need addressed Reviewed the PT/OT/ST notes Medication list reviewed. All lab work drawn this morning was personally reviewed. Hemoglobin is stable at 11.4. Sodium is mildly decreased at 134. Potassium is normal at 3.7. BUN is down to 16 from 24 on 10/22/2023 and the creatinine is stable at 0.42. Calcium corrected for hypoalbuminemia is within normal limits today at 9.4. Kimball denies pain, shortness of breath, cough, dizziness/lightheadedness, nausea/vomiting and heartburn. Objective Data Objective Data Vital Signs: Vital Signs Temp Pulse Resp BP Pulse Ox O2 Del Method 97.6 F L 89 18 116/79 96 Room Air 10/25/23 07:06 10/25/23 07:06 10/25/23 07:06 10/25/23 07:06 10/25/23 07:06 10/25/23 07:06 Oxygen Delivery Method Room Air Weight: 113 lb 8.609 oz Body Mass Index (BMI) 23.8 Intake & Output: Intake and Output for Last 24 Hours 10/23/23 10/24/23 10/25/23 23:59 23:59 23:59 Intake Total 3200 / 3200 1840 / 2340 2059 / 2059 Output Total 4950 / 4950 2775 / 3625 2049 Balance -1750 / -1750 -935 / -1285 Lab / Micro Data 10/25/23 05:41 10/27/23 05:21 Labs: Laboratory Results - last 24 hr 10/25/23 05:41: Hgb 11.4 L, Hct 35.4 L, Sodium 134 L, Potassium 3.7, Chloride 105, Carbon Dioxide 26.0, Anion Gap 3 L, BUN 16, Creatinine 0.42 L, Estim Creat Clear Calc 117.66, Est GFR (MDRD) Af Amer 204, Est GFR (MDRD) Non-Af 169, BUN/Creatinine Ratio 37.6 H, Glucose 97, Calcium 8.1 L, Albumin 2.4 L Physical Exam Const alert, oriented x3 and no apparent distress Constitutional Narrative: Lying in bed. Has her shoes on to help prevent foot drop. General Appearance: cooperative HEENT moist oral mucous membranes Resp clear to auscultation bilaterally Resp Narrative: No conversational dyspnea Effort and Inspection: Negative for tachypneic Cardio regular rate, regular rhythm, no murmurs and no gallops Cardio Narrative: No ectopy GI normal to inspection, nondistended, normoactive bowel sounds and soft to palpation GI Narrative: No guarding with palpation Extremity General Extremity: Negative for edema Skin General Skin Exam: no breakdown Rashes: no rashes Psych affect normal Appearance: appropriate Mood & Affect: Negative for depressed or anxious Assessment & Plan Assessment/Plan (1) Physical debility: (2) Myelopathy: (3) Paraplegia at T4 level: (4) Neurogenic bladder: (5) Fecal incontinence: QUALIFIERS: Fecal incontinence type: full incontinence of feces Qualified Code(s): R15.9 - Full incontinence of feces (6) History of spinal fusion: (7) Breast cancer in female: (8) Hypercalcemia: (9) Abnormal LFTs: (10) Intravascular volume depletion: (11) Hypoalbuminemia: (12) Hyponatremia: (13) History of transfusion of platelets: (14) History of transfusion of packed RBC: PLAN: Plan 1. Continue therapy 2. May need pamidronate monthly if hypercalcemia recurs. 3. Will follow-up with Dr. Brizuela post discharge from rehab 4. Family will come in for shared care prior to discharge to instructed how best to assist Martha. 5. Will need a [place] lift at home. All questions were answered. Charges/Coding Visit Charges Inpatient E&M: 41462 Subs Hosp L2
--- NOTE | 2023-10-25 13:17 | CASEMGMT ---
Social Work IDT met with patient and family members for Team meeting. Discussed patient's progress in PT/OT/SN. Pt has paid through [facility] Funds until 10/29 currently. IDT recommending another week for continued therapy. Pt is showing progress. Discussed DME needs: ezequiel burciaga, pediatric w/c; and HHC at DC. Will ReTeam weekly. SW will continue to follow for DC planning. SW sent updated email to [facility] Liaison for request of payment and notified of DME needs for coverage. KYLE RoeW
[2023-10-25 19:25] VITALS: BP 113/74; PULSE 91; RESP 16; TEMP 37.1; O2SAT 97
[2023-10-26] MEDS: Menthol/Lanolin/Calamine/Znox 113 GM Tube 1 APPLIC TOPICAL ×2 (04:21→20:52)
[2023-10-26 06:00] VITALS: BMI 23.9
[2023-10-26 07:25] VITALS: BP 109/79; PULSE 84; RESP 16; TEMP 36.6; O2SAT 96
[2023-10-26] MEDS: Multivitamins,Therapeutic Tablet 1 TABLET PO (08:28)
[2023-10-26] MEDS: Heparin Injection (Vial) 5,000 UNIT/ML VIAL 5000 UNIT SC ×2 (08:28→20:52)
[2023-10-26] MEDS: Juven (unflavored) Packet 1 PACKET PO (08:28)
--- NOTE | 2023-10-26 09:17 | PCM.PROGNOTE ---
Subjective Subjective Afebrile VSS Maintaining appropriate oxygen saturation on RA Oral intake is good. Eating 75 to 100% of her meals. Fluid balance yesterday was -30 and she took 2,720 cc fluid orally. Over night she had 2200 out and only 480 in and the balance is -1720. Discussed with nursing - no problems that need addressed Reviewed the PT/OT/ST notes Medication list reviewed. Martha denies lightheadedness, vertigo, cephalgia, chest pain, shortness of breath, sore throat, cough, nausea/vomiting/epigastric pain, heartburn and pain in the back or the legs. Objective Data Objective Data Vital Signs: Vital Signs Temp Pulse Resp BP Pulse Ox O2 Del Method 97.9 F 84 16 109/79 96 Room Air 10/26/23 07:25 10/26/23 07:25 10/26/23 07:25 10/26/23 07:25 10/26/23 07:25 10/26/23 07:25 Oxygen Delivery Method Room Air Weight: 114 lb 6.719 oz Body Mass Index (BMI) 23.9 Intake & Output: Intake and Output for Last 24 Hours 10/24/23 10/25/23 10/26/23 23:59 23:59 23:59 Intake Total 1840 / 2340 2720 / 2720 480 / 480 Output Total 2775 / 3625 2750 / 3950 2200 / 2200 Balance -935 / -1285 -30 / -1230 -1720 / -1720 Lab / Micro Data 10/25/23 05:41 10/27/23 05:21 Physical Exam Const alert, oriented x3 and no apparent distress Constitutional Narrative: Lying in bed. Has her shoes on to help prevent foot drop. General Appearance: cooperative and well kempt Orientation / Consciousness: Negative for confused Nutritional Appearance: Negative for cachectic or obese HEENT moist oral mucous membranes Eyes PERRL, EOMs intact bilaterally, conjunctivae normal and no scleral icterus Eyes Narrative: No mattering of the eye lashes send no discharge from the eyes. 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 No visual field cuts. General Eye: normal light reflex Neck No nuchal rigidity and no carotid bruits General: trachea midline; Negative for JVD Chest Chest: symmetrical chest wall rise Resp normal respiratory effort and clear to auscultation bilaterally Resp Narrative: No conversational dyspnea Effort and Inspection: Negative for tachypneic Cardio regular rate, regular rhythm, no murmurs and no gallops Cardio Narrative: No ectopy GI normal to inspection, nondistended, normoactive bowel sounds, soft to palpation and non-tender GI Narrative: No guarding with palpation Narrative: Mijares catheter is in place and the urine is pale yellow and clear. Back/Spine Back/Spine Narrative: The incision extends from the base of the neck to the tailbone posteriorly. There is no dehiscence, no shruthi-incisional erythema and no discharge. Extremity no calf tenderness Extremity Narrative: can not feel pain in the legs/calves but, she is a T4 paraplegic and has no feeling below the mid epigastric area. General Extremity: Negative for edema Skin Skin Narrative: Small stage II decubitus ulcer at the proximal end of the gluteal cleft. No odor, no purulent discharge and no erythema. She is incontinent of stool. General Skin Exam: turgor normal Rashes: no rashes Wound Narrative: She has a stage 2 on the buttocks that was present at admission to rehab. It is unchanged. Neuro CN's II-XII intact bilaterally Neuro Narrative: Still with T4 paraplegia and no sensation distal to the epigastric area. Has BL ankle clonus. No muscle spasms. Deep Tendon Reflexes: Rt Patellar (L4): 2+, Lt Patellar (L4): 2+, Rt Ankle (S1): 2+ and Lt Ankle (S1): 2+ Coordination: [id number] test normal and [id number] test normal (Unable to move either lower extremity) Psych thought process normal, cooperative and affect normal Psych Narrative: She seems upbeat but, I see her tear up when we are talking about her 5 YO son. Appearance: grossly normal, appropriate and well kempt Attitude: calm Mood & Affect: Negative for depressed, anxious or flat affect Assessment & Plan Assessment/Plan (1) Physical debility: (2) Myelopathy: (3) Paraplegia at T4 level: (4) Neurogenic bladder: (5) Fecal incontinence: QUALIFIERS: Fecal incontinence type: full incontinence of feces Qualified Code(s): R15.9 - Full incontinence of feces (6) History of spinal fusion: (7) Breast cancer in female: (8) Hypercalcemia: (9) Abnormal LFTs: (10) Intravascular volume depletion: (11) Hypoalbuminemia: (12) Hyponatremia: PLAN: resolved PLAN: Plan 1. Continue therapy 2. Continues to have polyuria despite normalization of the calcium. Recheck a BMP in the a.m. Charges/Coding Visit Charges Inpatient E&M: 68239 Subs Hosp L2
[2023-10-26 22:00] VITALS: BP 114/74; PULSE 93; PULSE 95; RESP 16; TEMP 36.6; O2SAT 96
[2023-10-27] MEDS: Menthol/Lanolin/Calamine/Znox 113 GM Tube 1 APPLIC TOPICAL ×2 (06:02→21:03)
[2023-10-27 06:47] LABS: Anion Gap 3 (5-15); BUN 16 mg/dL (7-18); BUN/Creat Ratio 37.8 RATIO (10-20); Calcium,Total 8.5 mg/dL (8.5-10.1); Chloride 113 mmol/L (98-107); Creatinine, Serum 0.42 mg/dL (0.55-1.02); EST Glomerular Filtration Rate 170 mL/min (>60); Est Glom Filt Rate - Afr Amer 205 mL/min (>60); Estimated Creatinine Clearance 117.66 ml/min; Glucose 88 mg/dL (74-106); Potassium 4.3 mmol/L (3.5-5.1); Sodium Level 141 mmol/L (136-145)
[2023-10-27 07:41] VITALS: BP 116/80; PULSE 84; RESP 16; TEMP 36.4; O2SAT 95
[2023-10-27] MEDS: Polyethylene Glycol 3350 17 GM PACKET PO (08:44)
[2023-10-27] MEDS: Juven (unflavored) Packet 1 PACKET PO (08:44)
[2023-10-27] MEDS: Heparin Injection (Vial) 5,000 UNIT/ML VIAL 5000 UNIT SC ×2 (08:44→21:03)
[2023-10-27] MEDS: Multivitamins,Therapeutic Tablet 1 TABLET PO (08:44)
[2023-10-27] MEDS: Nystatin/Triamcin Cream Tube 1 APPLIC TOPICAL (16:41)
[2023-10-27 21:18] VITALS: BP 106/80; PULSE 92; RESP 18; TEMP 37.1; O2SAT 96
[2023-10-28] MEDS: Menthol/Lanolin/Calamine/Znox 113 GM Tube 1 APPLIC TOPICAL ×2 (05:11→20:25)
[2023-10-28] MEDS: Juven (unflavored) Packet 1 PACKET PO ×2 (08:42→15:53)
[2023-10-28] MEDS: Polyethylene Glycol 3350 17 GM PACKET PO (08:42)
[2023-10-28] MEDS: Heparin Injection (Vial) 5,000 UNIT/ML VIAL 5000 UNIT SC ×2 (08:43→20:25)
[2023-10-28] MEDS: Multivitamins,Therapeutic Tablet 1 TABLET PO (08:43)
[2023-10-28] MEDS: Nystatin/Triamcin Cream Tube 1 APPLIC TOPICAL ×2 (08:46→20:25)
[2023-10-28 10:00] VITALS: BP 120/83; PULSE 80; RESP 17; TEMP 36.5; O2SAT 96
[2023-10-28] MEDS: Magnesium Hydroxide 30 ML UDC PO (17:05)
[2023-10-28 20:05] VITALS: BP 110/85; PULSE 95; RESP 18; TEMP 36.7; O2SAT 99
[2023-10-29] MEDS: Menthol/Lanolin/Calamine/Znox 113 GM Tube 1 APPLIC TOPICAL ×2 (05:44→20:54)
[2023-10-29 07:08] VITALS: BP 111/82; PULSE 88; RESP 15; TEMP 36.8; O2SAT 95
[2023-10-29] MEDS: Heparin Injection (Vial) 5,000 UNIT/ML VIAL 5000 UNIT SC ×2 (07:54→20:53)
[2023-10-29] MEDS: Juven (unflavored) Packet 1 PACKET PO ×2 (07:54→16:22)
[2023-10-29] MEDS: Multivitamins,Therapeutic Tablet 1 TABLET PO (07:54)
--- NOTE | 2023-10-29 11:16 | PN_ITS ---
Subjective Subjective Afebrile VSS Maintaining appropriate oxygen saturation on RA Oral intake is good Has been in negative fluid balance for the past several days but, wt is actually up to 114 .7 lbs? suspect we are not regarding all her input. She had 2 bowel movements 09-24 and the last bowel movement was 10/28/2023. Urine in the Mijares tubing and the bag is pale yellow and clear. Discussed with nursing - no problems that need addressed Reviewed the PT/OT notes Medication list reviewed. Calcium on Sunday was within normal limits. Martha denies dizziness/lightheadedness, cephalgia, neck pain, back pain, nausea/vomiting/epigastric pain, SOB and cough. Denies palpitations. She is starting to feel when she may need to have a BM. Called the nurses in the middle of the night and she was placed on the bedpan and she had a BM Definitely had some tone in the Left leg today and was able to feel that the muscles with tight. No movement in the LLE yet. Objective Data Objective Data Vital Signs: Vital Signs Temp Pulse Resp BP Pulse Ox O2 Del Method 98.2 F 88 15 111/82 H 95 Room Air 10/29/23 07:08 10/29/23 07:08 10/29/23 07:08 10/29/23 07:08 10/29/23 07:08 10/29/23 07:08 Oxygen Delivery Method Room Air Weight: 114 lb 6.719 oz Body Mass Index (BMI) 23.9 Intake & Output: Intake and Output for Last 24 Hours 10/27/23 10/28/23 10/29/23 23:59 23:59 23:59 Intake Total 2080 / 2080 2220 / 2220 640 / 640 Output Total 3000 / 3000 3900 / 3900 1450 / 1450 Balance -920 / -920 -1680 / -1680 -810 / -810 Lab / Micro Data 10/25/23 05:41 10/27/23 05:21 Physical Exam Const alert, oriented x3 and no apparent distress Constitutional Narrative: Sitting in the recliner with her legs elevated. Smiling, outgoing, making good eye contact. General Appearance: cooperative HEENT Mouth: dry mucous membranes Resp normal respiratory effort and clear to auscultation bilaterally Effort and Inspection: Negative for tachypneic, respiratory distress or labored Cardio Cardio Narrative: rhythm is regular. Resting HR is increased mildly sitting in the chair. No MM and no gallops. GI normal to inspection, nondistended, normoactive bowel sounds, soft to palpation and non-tender GI Narrative: no guarding with palpation. Extremity normal capillary refill General Extremity: Negative for edema Skin Rashes: no rashes Wound Narrative: Stage 2 decub in the gluteal cleft with no erythema, no purulent DC. It is smaller in size today and located over the coccyx. No wounds on the buttocks or over the ischeial spines. Neuro CN's II-XII intact bilaterally Neuro Narrative: Clonus is still 3-4 beats, L>RL. Still max assist X 2 for use of sliding board. Able to propel the WC 75 X 2 today at SUP. Had increased tone in the LLE throughout ROM of the LLE. Psych thought process normal, cooperative and affect normal Appearance: appropriate Attitude: No agitated Activity / Motor Behavior: Negative for restless Assessment & Plan Assessment/Plan (1) Physical debility: (2) History of spinal fusion: (3) Paraplegia at T4 level: (4) Myelopathy: (5) Breast cancer in female: (6) Neurogenic bladder: (7) Fecal incontinence: QUALIFIERS: Fecal incontinence type: full incontinence of feces Qualified Code(s): R15.9 - Full incontinence of feces (8) Decubitus skin ulcer: QUALIFIERS: Pressure injury location: sacral region Pressure injury stage: stage 2 Qualified Code(s): L89.152 - Pressure ulcer of sacral region, stage 2 PLAN: Plan 1. Continue therapy 2. Recheck a CBC without differential, BMP 3. Will D/W the /[facility] liaison need for a low air loss mattress and a low air loss cushion for use with the WC. Will require a lot of assistance at home. 4. Continue Calmoseptine, turning [id number] every 2 hours, limiting time in the chair to no longer than 1 hour at a time and the [id number] mattress. Charges/Coding Visit Charges Inpatient E&M: 10024 Subs Hosp L2
--- NOTE | 2023-10-29 14:03 | CASEMGMT ---
Social Work SW collaborating with [facility] Liaison for resources and DME needs for pt at time of DC. SW phoned [facility] to inquire about DME needs. SW provided written instructions and contact information and provided to pt for to contact and obtain DME. [place] [facility] [place]. Will continue to follow. KYLE RoeW
[2023-10-29] MEDS: Nystatin/Triamcin Cream Tube 1 APPLIC TOPICAL ×2 (14:51→20:56)
[2023-10-29 19:43] VITALS: BP 119/81; PULSE 98; RESP 16; TEMP 37; O2SAT 98
--- NOTE | 2023-10-30 02:49 | NURSING ---
Reviewed and agree with, Ranjan CACERES, documentation and assessment charting.
[2023-10-30] MEDS: Menthol/Lanolin/Calamine/Znox 113 GM Tube 1 APPLIC TOPICAL ×2 (05:00→20:45)
[2023-10-30 06:03] LABS: Hematocrit 38.8 % (37-47); Hemoglobin 12.4 g/dL (12.0-15.0); Mean Corpuscular Volume 90.7 fL (81-99); Mean Platelet Vol. 8.9 fl (6.2-12.0); Platelet Count 354 K/mm3 (150-450); RBC Distribution Width CV 13.6 % (11.6-14.6); RBC Distribution Width SD 44.2 fl (35.1-43.9); Red Blood Count 4.28 M/mm3 (4.2-5.4)
[2023-10-30 06:27] LABS: Albumin, Serum 2.7 g/dL (3.2-5.0); Anion Gap 4 (5-15); BUN 22 mg/dL (7-18); BUN/Creat Ratio 40.2 RATIO (10-20); Calcium,Total 9.1 mg/dL (8.5-10.1); Chloride 104 mmol/L (98-107); Creatinine, Serum 0.55 mg/dL (0.55-1.02); EST Glomerular Filtration Rate 126 mL/min (>60); Est Glom Filt Rate - Afr Amer 153 mL/min (>60); Estimated Creatinine Clearance 89.85 ml/min; Glucose 95 mg/dL (74-106); Sodium Level 135 mmol/L (136-145)
[2023-10-30 07:06] VITALS: BP 121/84; PULSE 89; RESP 15; TEMP 36.4; O2SAT 97
[2023-10-30] MEDS: Juven (unflavored) Packet 1 PACKET PO ×2 (08:00→17:26)
[2023-10-30] MEDS: Heparin Injection (Vial) 5,000 UNIT/ML VIAL 5000 UNIT SC ×2 (08:00→20:43)
[2023-10-30] MEDS: Multivitamins,Therapeutic Tablet 1 TABLET PO (08:00)
[2023-10-30] MEDS: Nystatin/Triamcin Cream Tube 1 APPLIC TOPICAL ×2 (08:07→21:04)
--- NOTE | 2023-10-30 08:12 | PCM.PROGNOTE ---
Subjective Subjective Afebrile VSS Maintaining appropriate oxygen saturation on RA Oral intake is good for food. She had 2 bowel movements yesterday and had 1 this a.m. already. She took 3080 cc orally yesterday but had 5500 of for a fluid balance of -2420. Fluid balance has been in the negative numbers for the past 4 days. The weight today is 114 pounds and 6.7 ounces which is up from 113 pounds and 8.6 ounces yesterday. Overall she is much better hydrated and the weight has increased approximately 4.2 pounds since 10/19/2023. Discussed with nursing - no problems that need addressed Reviewed the PT/OT/ST notes Medication list reviewed. All lab drawn this AM was personally reviewed. White blood cell count is normal at 8. Hemoglobin is 12.4, up from 11.4 on 10/25/2023 and I suspect this is secondary to negative fluid balance for the past 4 days. Platelets are within normal limits. Sodium is decreased at 135 and potassium is 4.0. The BUN is 22, up from 16 on 10/27/2023. Creatinine is 0.55, up from 0.42 on 10/25/2019. The BUN/creatinine ratio is 40.2. Calcium today is 9.1 and when corrected for hypoalbuminemia it is 10.14. She is on a calcium restricted diet. Objective Data Objective Data Vital Signs: Vital Signs Temp Pulse Resp BP Pulse Ox O2 Del Method 97.5 F L 89 15 121/84 H 97 Room Air 10/30/23 07:06 10/30/23 07:06 10/30/23 07:06 10/30/23 07:06 10/30/23 07:06 10/30/23 07:06 Oxygen Delivery Method Room Air Weight: 114 lb 6.719 oz Body Mass Index (BMI) 23.9 Intake & Output: Intake and Output for Last 24 Hours 10/28/23 10/29/23 10/30/23 23:59 23:59 23:59 Intake Total 2220 / 2220 3080 / 3080 220 / 220 Output Total 3900 / 3900 5500 / 5500 850 / 850 Balance -1680 / -1680 -2420 / -2420 -630 / -630 Lab / Micro Data 10/30/23 05:50 10/30/23 05:50 Labs: Laboratory Results - last 24 hr 10/30/23 05:50: WBC 8.0, RBC 4.28, Hgb 12.4, Hct 38.8, MCV 90.7, MCH 29.0, MCHC 32.0, RDW Std Deviation 44.2 H, RDW Coeff of Mimi 13.6, Plt Count 354, MPV 8.9, Sodium 135 L, Potassium 4.0, Chloride 104, Carbon Dioxide 27.0, Anion Gap 4 L, BUN 22 H, Creatinine 0.55, Estim Creat Clear Calc 89.85, Est GFR (MDRD) Af Amer 153, Est GFR (MDRD) Non-Af 126, BUN/Creatinine Ratio 40.2 H, Glucose 95, Calcium 9.1, Albumin 2.7 L Physical Exam Const alert, oriented x3 and no apparent distress HEENT Mouth: dry mucous membranes Resp normal respiratory effort and clear to auscultation bilaterally Cardio regular rhythm Cardio Narrative: increased resting HR. GI normal to inspection, nondistended, normoactive bowel sounds, soft to palpation and non-tender Extremity no calf tenderness Skin Rashes: no rashes Wound Narrative: stage 2 decubitus ulcer at the proximal end of the gluteal cleft. Improving. Neuro Neuro Narrative: No sensation to pinprick in the LE's but, she can feel pressure when I touch the abd with the pinprick from the umbilicus proximally. Sensation is sharp above the nipple line. no movement in the feet. Can not move the leg side to side on the bed. She tells me that she can feel her muscles tighten but, no movement. Assessment & Plan Assessment/Plan (1) Physical debility: (2) History of spinal fusion: (3) Paraplegia at T4 level: (4) Myelopathy: (5) Breast cancer in female: (6) Neurogenic bladder: (7) Fecal incontinence: QUALIFIERS: Fecal incontinence type: full incontinence of feces Qualified Code(s): R15.9 - Full incontinence of feces (8) Decubitus skin ulcer: QUALIFIERS: Pressure injury location: sacral region Pressure injury stage: stage 2 Qualified Code(s): L89.152 - Pressure ulcer of sacral region, stage 2 PLAN: Plan 1. Continue therapy 2. check all her vitamins that she is taking to see if they contain calcium or Vitamin D. 3. Continue the low calcium diet. 4. Recheck a calcium and albumin on Sunday. 5. She is not able to keep up with the fluid losses. If the calcium is high will need to restart IV fluids. Charges/Coding Visit Charges Inpatient E&M: 00466 Subs Hosp L2
[2023-10-30 19:19] VITALS: BP 120/86; PULSE 93; RESP 17; TEMP 36.7; O2SAT 96
[2023-10-30 21:20] VITALS: O2SAT 96
--- NOTE | 2023-10-31 02:55 | NURSING ---
Reviewed and agree with, Ranjan CACERES, documentation and assessment charting.
[2023-10-31] MEDS: Menthol/Lanolin/Calamine/Znox 113 GM Tube 1 APPLIC TOPICAL ×2 (04:34→21:23)
[2023-10-31 07:18] VITALS: BP 123/86; PULSE 103; RESP 15; TEMP 36.4; O2SAT 95
[2023-10-31] MEDS: Juven (unflavored) Packet 1 PACKET PO ×2 (08:58→17:10)
[2023-10-31] MEDS: Multivitamins,Therapeutic Tablet 1 TABLET PO (08:59)
[2023-10-31] MEDS: Heparin Injection (Vial) 5,000 UNIT/ML VIAL 5000 UNIT SC ×2 (08:59→21:19)
[2023-10-31 19:15] VITALS: BP 120/87; PULSE 103; RESP 16; TEMP 37.1; O2SAT 96
[2023-10-31] MEDS: Nystatin/Triamcin Cream Tube 1 APPLIC TOPICAL (20:26)
[2023-10-31 21:00] VITALS: PULSE 105; RESP 16; O2SAT 97
[2023-11-01] MEDS: Menthol/Lanolin/Calamine/Znox 113 GM Tube 1 APPLIC TOPICAL ×2 (05:55→20:52)
--- NOTE | 2023-11-01 06:44 | NURSING ---
Mijares this a.m. had 50ml in which is unusual for this pt. No kinks were present and Mijares catheter seemed loose upon examination. Urine was not present with any maneuvers and syringe extracted urine was present in syringe. Mijares was removed and a 16 FR was inserted. Stat lock to rt leg is in place.
[2023-11-01 06:46] LABS: Mucous, Urine 0 SEEN /hpf (<or=2+); Red Blood Cells-Urine 0 SEEN /hpf (0-5)
[2023-11-01 06:50] LABS: Glucose, Dipstick Normal (Normal); Ketone-Dipstick 5 mg/dl (Negative); Leukocyte Esterase-Dipstick 500 /ul (Negative); Nitrite-Dipstick Positive (Negative); Occult Blood-Urine 25 /ul (Negative); Protein-Dipstick 30 mg/dl (Negative); Specific Gravity, Urine 1.015 (1.002-1.030); Urine Bilirubin Dipstick Negative (Negative); Urine Urobilinogen Normal (Normal)
--- NOTE | 2023-11-01 06:56 | NURSING ---
Mijares @05:00 had 50ml since 01:45 when 500ml was emptied. Mijares tubing was checked for kinks and none were present. Mijares catheter seemed loose upon examination. Urine did not present with any maneuvers so syringe was used to check balloon. When extracted, urine was present in syringe. Mijares was removed and a 16 FR was inserted. Stat lock to rt leg is in place.
[2023-11-01 07:03] LABS: Bacteria 3+ /hpf (None Seen); Color, Urine Yellow (Yellow); Squamous Epithelial Cells - UA 0-5 SEEN /hpf (5-10); Urine Clarity Clear (Clear); White Blood Cells 50-100 SEEN /hpf (0-5)
[2023-11-01 07:26] VITALS: BP 121/78; PULSE 100; RESP 16; TEMP 37.2; O2SAT 95
[2023-11-01] MEDS: Multivitamins,Therapeutic Tablet 1 TABLET PO (07:53)
[2023-11-01] MEDS: Juven (unflavored) Packet 1 PACKET PO ×2 (07:53→16:37)
[2023-11-01] MEDS: Heparin Injection (Vial) 5,000 UNIT/ML VIAL 5000 UNIT SC ×2 (07:54→20:52)
[2023-11-01] MEDS: Nystatin/Triamcin Cream Tube 1 APPLIC TOPICAL ×2 (08:00→21:02)
--- NOTE | 2023-11-01 10:34 | PCM.PROGNOTE ---
Subjective Subjective Day #1 cefadroxil. Sofia was seen on TEAM rounds today. Her , sister and [id number] were present in the room. All questions were answered to their satisfaction. Afebrile VSS - BP is WNL and she denies lightheadedness but, the resting HR is 103 today? dysautonomia? Maintaining appropriate oxygen saturation on RA Oral intake is good for food and inadequate for fluid intake. She had 2700 cc in the past 24 hours and 4050 out. Wt is not significantly changing so I suspect the intake is not accurate. Fluid balance is -1350. Urine in the Mijares bag is very pale yellow and clear. Discussed with nursing - the Mijares catheter was not draining last night and nursing changed the Mijares. They sent a urine which shows 50-100 WBCs per high-power field and 3+ bacteria. It was nitrite positive. Urine culture was sent. Reviewed the PT/OT notes PT reports that the muscles in the legs are tightening now but, she still has no movement in the LE's. Still with poor truncal stability but, better than at admission. she is able to use her UE's when seated at the edge of the therapy table now to maintain balance. therapy is using the sliding board with the pt but, family will be using a patrica at home. She is MAX assist/dependent X2 for using the sliding board.........Pt is trying to assist but due to limited trunk control therapy is doing the work . Medication list reviewed. Sofia complains that her appetite has been decreased the past few days. Nursing is recording she is eating 75-100% of all her meals the past few days. Denies nausea and has had no vomiting. No MIKE or lightheadedness. No CP or SOB and no palpitations. Objective Data Objective Data Vital Signs: Vital Signs Temp Pulse Resp BP Pulse Ox O2 Del Method 98.9 F 100 16 121/78 H 95 Room Air 11/01/23 07:26 11/01/23 07:26 11/01/23 07:26 11/01/23 07:26 11/01/23 07:26 11/01/23 07:26 Oxygen Delivery Method Room Air Weight: 114 lb 6.719 oz Body Mass Index (BMI) 23.9 Intake & Output: Intake and Output for Last 24 Hours 10/30/23 10/31/23 11/01/23 23:59 23:59 23:59 Intake Total 2059 / 2059 2670 / 2670 500 / 500 Output Total 4050 / 4450 4226 / 4226 550 / 550 Balance -1990 / 2390 -1556 / -1556 -50 / -50 Lab / Micro Data 11/04/23 04:30 11/04/23 04:30 Labs: Laboratory Results - last 24 hr 11/01/23 06:35: Urine Color Yellow, Urine Clarity Clear, Urine pH 6.0, Ur Specific [place] 1.015, Urine Protein 30 H, Urine Glucose (UA) Normal, Urine Ketones 5 H, Urine Occult Blood 25 H, Urine Nitrite Positive H, Urine Bilirubin Negative, Urine Urobilinogen Normal, Ur Leukocyte Esterase 500 H, Urine RBC 0 SEEN, Urine WBC 50-100 SEEN, Ur Squamous Epith Cells 0-5 SEEN, Urine Bacteria 3+, Urine Mucus 0 SEEN Physical Exam Const alert, oriented x3 and no apparent distress General Appearance: cooperative HEENT Mouth: dry mucous membranes Eyes PERRL and EOMs intact bilaterally Neck supple Resp clear to auscultation bilaterally Resp Narrative: No conversational dyspnea Effort and Inspection: Negative for tachypneic Cardio regular rhythm Cardio Narrative: Resting HR is increased. No ectopy Mo MM and no gallop. GI normal to inspection, nondistended, normoactive bowel sounds, soft to palpation and non-tender GI Narrative: no guarding with palpation. Extremity Extremity Narrative: no pitting edema of the LE's/ankles. Skin Rashes: no rashes Wound Narrative: The decub on the backside is nearly closed. No Dc and no odor. Neuro CN's II-XII intact bilaterally Neuro Narrative: 5/5 strength in the UE's. She can feel the pinprick today starting at mid abd.....no sensation distal to mid abd. No movement of the LE's. Psych cooperative and affect normal Appearance: appropriate Assessment & Plan Assessment/Plan (1) Physical debility: (2) History of spinal fusion: (3) Paraplegia at T4 level: (4) Myelopathy: (5) Breast cancer in female: PLAN: With mets to the bone, liver, lungs and also has a large adnexal mass (6) Neurogenic bladder: (7) Fecal incontinence: QUALIFIERS: Fecal incontinence type: full incontinence of feces Qualified Code(s): R15.9 - Full incontinence of feces (8) Decubitus skin ulcer: QUALIFIERS: Pressure injury location: sacral region Pressure injury stage: stage 2 Qualified Code(s): L89.152 - Pressure ulcer of sacral region, stage 2 PLAN: Plan 1. Continue therapy 2. Plan for DC mid week. 3. Family will come in for training to learn how to best assist SOFIA. 4. The likelihood of her ever regaining the ability to walk is very slim to none. Will need a Patrica lift, hospital bed, low air loss mattress, sliding board, WC at DC. 5. Will go home with a Mijares 6. Continue the Cefadroxil.......pending the results of the urine culture. Charges/Coding Visit Charges Inpatient E&M: 08825 Subs Hosp L2
[2023-11-01 11:15] LABS: Ionized Calcium 4.72 mg/dL (4.36-5.20)
[2023-11-01] MEDS: Cefadroxil 500 MG CAPSULE 1000 MG PO (12:29)
--- NOTE | 2023-11-01 13:19 | CASEMGMT ---
Social Work Team meeting held with pt, pt's spouse, sister and brother in law present. PT/OT/RN updated pt and family on progress with therapy. Richard Fang Liason in attendance and pt stay has been covered through 11/05 with NRD on 11/06. Team spoke with pt and family regarding setting a discharge date. Family has set up a ramp for pt into home. SW spoke regarding DME. Pt spouse has not yet checked the [facility] for available DME. SW encouraged him to get DME lined up for return home. Pt will need a patrica lift, slideboard, pediatric wheelchair, drop arm BSC, extended tub bench, hand held shower, gel overlay for bed. Pt would benefit from a hospital bed and power chair as well. SW provided a written list of needed DME and cost if purchased from D[facility] [employer]. Family training to be started this afternoon. Family to look into DME at [facility]. Pt will need a followup appointment with oncologist and requesting that dc date and appt will be coordinated for the same date. Nursing to look into appointment and SW will follow up with dc date. Will continue with treatment plan at this time and ReTeam next week if pt remains in facility. LUIS Ortega
[2023-11-01 20:00] VITALS: BP 111/82; PULSE 98; RESP 16; TEMP 36.4; O2SAT 98
[2023-11-02] MEDS: Menthol/Lanolin/Calamine/Znox 113 GM Tube 1 APPLIC TOPICAL ×2 (04:57→20:47)
[2023-11-02 06:00] VITALS: BMI 23.4
[2023-11-02 07:22] VITALS: BP 107/74; PULSE 104; RESP 17; TEMP 36.3; O2SAT 94
[2023-11-02] MEDS: Multivitamins,Therapeutic Tablet 1 TABLET PO (09:10)
[2023-11-02] MEDS: Juven (unflavored) Packet 1 PACKET PO ×2 (09:10→16:59)
[2023-11-02] MEDS: Heparin Injection (Vial) 5,000 UNIT/ML VIAL 5000 UNIT SC ×2 (09:10→20:47)
[2023-11-02] MEDS: Cefadroxil 500 MG CAPSULE 1000 MG PO (09:10)
[2023-11-02] MEDS: Nystatin/Triamcin Cream Tube 1 APPLIC TOPICAL ×2 (09:15→20:47)
--- NOTE | 2023-11-02 10:41 | CASEMGMT ---
Social Work SW phoned to follow up on DC planning as team discussed setting DC date next week. expressed being hesitant about DC, explaining he feels pt should be further progressed at this stage, specifically referencing the use of her legs. noted transferring to another facility that could provide what pt needs. SW educated to IRU being highest level of therapy. Provided active listening and noted this worker cannot speak to 's concerns as it is out of this worker's scope. However, offered to provide update to PT on conversation and will have PT follow up with . Also discussed participating in a therapy session to better visualize pt's abilities and use of limbs. stated he would prefer to be in attendance at therapy sessions. SW to note to PT and will postpone DC plans at this time. appreciative. SW left VM with PT and notified via secure text to follow up with . SW will continue to follow. Elsa Cervantes, KYLE STEVENW
[2023-11-02 20:39] VITALS: BP 126/86; PULSE 107; RESP 16; TEMP 37.2; O2SAT 95
[2023-11-02 20:40] VITALS: PULSE 107
[2023-11-02 22:30] VITALS: TEMP 36.8
[2023-11-03 05:35] VITALS: BP 123/85; PULSE 94; RESP 16; TEMP 36.7; O2SAT 94
[2023-11-03] MEDS: Menthol/Lanolin/Calamine/Znox 113 GM Tube 1 APPLIC TOPICAL ×2 (06:40→21:46)
[2023-11-03 07:00] VITALS: BP 125/72; PULSE 100; RESP 17; TEMP 36.7; O2SAT 94
[2023-11-03] MEDS: Juven (unflavored) Packet 1 PACKET PO ×2 (08:27→16:43)
[2023-11-03] MEDS: Polyethylene Glycol 3350 17 GM PACKET PO (08:27)
[2023-11-03] MEDS: Multivitamins,Therapeutic Tablet 1 TABLET PO (08:28)
[2023-11-03] MEDS: Cefadroxil 500 MG CAPSULE 1000 MG PO (08:28)
[2023-11-03] MEDS: Heparin Injection (Vial) 5,000 UNIT/ML VIAL 5000 UNIT SC ×2 (08:28→21:46)
[2023-11-03] MEDS: Nystatin/Triamcin Cream Tube 1 APPLIC TOPICAL ×2 (13:02→21:47)
[2023-11-03 20:08] VITALS: BP 114/81; PULSE 105; RESP 16; TEMP 36.7; O2SAT 94
[2023-11-04 05:41] LABS: Hematocrit 35.2 % (37-47); Hemoglobin 11.5 g/dL (12.0-15.0)
[2023-11-04 06:12] LABS: ALB/GLOB Ratio 0.5 RATIO (0.9-2.4); AST(SGOT) 60 U/L (15-37); Alanine Aminotransfer ALT/SGPT 112 U/L (13-56); Albumin, Serum 2.5 g/dL (3.2-5.0); Alkaline Phosphatase 159 U/L (45-117); Anion Gap 8 (5-15); BUN 16 mg/dL (7-18); Calcium,Total 9.1 mg/dL (8.5-10.1); Chloride 106 mmol/L (98-107); Creatinine, Serum 0.32 mg/dL (0.55-1.02); EST Glomerular Filtration Rate 234 mL/min (>60); Est Glom Filt Rate - Afr Amer 283 mL/min (>60); Estimated Creatinine Clearance 154.43 ml/min; Globulin 4.6 g/dL (2.2-4.2); Glucose 90 mg/dL (74-106); Protein, Total 7.1 g/dL (6.4-8.2); Sodium Level 137 mmol/L (136-145)
[2023-11-04] MEDS: Menthol/Lanolin/Calamine/Znox 113 GM Tube 1 APPLIC TOPICAL ×2 (06:38→22:40)
[2023-11-04 08:00] VITALS: BP 126/89; PULSE 99; RESP 16; TEMP 36.4; O2SAT 95
[2023-11-04] MEDS: Cefadroxil 500 MG CAPSULE 1000 MG PO (08:16)
[2023-11-04] MEDS: Polyethylene Glycol 3350 17 GM PACKET PO (08:16)
[2023-11-04] MEDS: Multivitamins,Therapeutic Tablet 1 TABLET PO (08:16)
[2023-11-04] MEDS: Juven (unflavored) Packet 1 PACKET PO ×2 (08:16→17:04)
[2023-11-04] MEDS: Heparin Injection (Vial) 5,000 UNIT/ML VIAL 5000 UNIT SC ×2 (08:17→22:40)
[2023-11-04] MEDS: Nystatin/Triamcin Cream Tube 1 APPLIC TOPICAL ×2 (12:23→22:41)
[2023-11-04 19:42] VITALS: BP 124/88; PULSE 100; RESP 16; TEMP 36.1; O2SAT 95
[2023-11-05] MEDS: Menthol/Lanolin/Calamine/Znox 113 GM Tube 1 APPLIC TOPICAL ×2 (06:22→21:34)
[2023-11-05 07:08] VITALS: BP 111/71; PULSE 112; RESP 16; TEMP 36.3; O2SAT 96
[2023-11-05] MEDS: Juven (unflavored) Packet 1 PACKET PO ×2 (07:49→15:46)
[2023-11-05] MEDS: Polyethylene Glycol 3350 17 GM PACKET PO (07:49)
[2023-11-05] MEDS: Heparin Injection (Vial) 5,000 UNIT/ML VIAL 5000 UNIT SC ×2 (07:49→21:04)
[2023-11-05] MEDS: Multivitamins,Therapeutic Tablet 1 TABLET PO (07:50)
[2023-11-05] MEDS: Nystatin/Triamcin Cream Tube 1 APPLIC TOPICAL ×2 (07:50→21:34)
[2023-11-05] MEDS: Cefadroxil 500 MG CAPSULE 1000 MG PO (07:50)
--- NOTE | 2023-11-05 10:18 | CASEMGMT ---
Addendum entered by Elsa Cervantes 11/05/23 13:53: SW spoke with to update on pricing and drs appt. agreeable to both and is choosing for DC 11/08. IDT updated. SW scheduled w/c transport through [facility]. Sent referral to [facility] via [facility] for PT/OT/SN. Plan: DC home with family 15, [facility] PT/OT/SN Original Note: Social Work SW met with patient, and ROBERT after first session of therapy training. expressed feeling more comfortable taking pt home now being involved in pt's therapy and seeing the abilities of the pt. Discussed DME needs. and ROBERT are picking up all the needed DME this evening. This worker will coordinate skilled [facility] PT/OT/SN. Pt will DC home with [facility]. Family inquiring about transportation. SW educated to resources and this worker can coordinate DC transport, but it would be an OOP cost. Offered to get pricing as family has a w/c van they could use as well. SW to also f/u with nursing on Dr. Brizuela appt to coordinate best with DC date. Family and pt electing DC 15 or 16. SW will f/u. Nurse contacted Dr. Brizuela's office and first available appt is 11/13. SW phoned [facility] and received pricing as $214.50 for DC home. SW to f/u with pt/family and set DC date then refer to C agency. Will continue to follow. Elsa Cervantes, KYLE PREFLIGHT INSPECTOR
--- NOTE | 2023-11-05 10:24 | PCM.PROGNOTE ---
Subjective Subjective Day #01/28 cefadroxil Afebrile VSS Maintaining appropriate oxygen saturation on RA Oral intake is good. Discussed with nursing - no problems that need addressed Reviewed the PT/OT/ST notes Medication list reviewed. All labs done 11/04/2023 was personally reviewed. Hemoglobin is 11.5, down from 12.4 on 10/30/2019. Sodium is 137 and potassium is 4.0. BUN is 16, down from 22 on 10/30/2023. Creatinine is 0.32. Calcium is 9.1. Calcium corrected for hypoalbuminemia is 10.3. she is asymptomatic at this time. AST is 68, up from 39 on 10/17/2023. ALT is 112, up from 79 on 10/17/2023. Alkaline phosphatase is 159, up from 112 on 10/04/2023. She has known diffuse liver mets. Urine culture grew greater than 100,000 colonies of a pansensitive E. coli. Continue the Duricef for a total of 7 days. and nujvdag-vw-dbb are here again for training. I met with Martha, her and her vjmvaqa-zr-odf today and answered their questions. Martha denies CP, SOB, cough, pain, lightheadedness. She c/o constipation today. According to documentation on the nursing record she has had a bowel movement on 10/29, 10/30, 10/31, 11/02, 11/03, 11/04. She refused her lunch today stating she was bloated. she also told me that the BM she had yesterday was hard. She had been refusing the polyethylene glycol but started taking it again on 11/03/2023 and has had 3 doses since then. She has never taken the senna that is ordered as needed. I explained to her since she is now paraplegic and has neurogenic bladder she also likely has an element of neurogenic colon. If she does not take the Miralax or the senna she is going to have constipation and could develop an obstruction. She would like to blame the constipation on the antibiotic. She feels her appetite is getting better again since she is being treated for UTI. she tells me that she is sleeping well at night. Her njodhv-ns-jgn tells me that she looks better today than she did on Sunday. Objective Data Objective Data Vital Signs: Vital Signs Temp Pulse Resp BP Pulse Ox O2 Del Method 97.3 F L 112 H 16 111/71 96 Room Air 11/05/23 07:08 11/05/23 07:08 11/05/23 07:08 11/05/23 07:08 11/05/23 07:08 11/05/23 07:08 Oxygen Delivery Method Room Air Weight: 112 lb 3.445 oz Body Mass Index (BMI) 23.4 Intake & Output: Intake and Output for Last 24 Hours 11/03/23 11/04/23 11/05/23 23:59 23:59 23:59 Intake Total 2100 / 2100 2500 / 2500 1000 / 1000 Output Total 4025 / 4025 3800 / 3800 900 / 900 Balance -1925 / -1925 -1300 / -1300 100 / 100 Lab / Micro Data 11/04/23 04:30 11/04/23 04:30 Micro: Microbiology 11/01/23 07:25 Urine Catheter - Catheter Urine Culture - Final Presumptive E. coli Physical Exam Const alert, oriented x3 and no apparent distress General Appearance: cooperative Orientation / Consciousness: Negative for confused HEENT Mouth: dry mucous membranes Resp clear to auscultation bilaterally Auscultation: diminished lung sounds localized (Bases) Cardio regular rhythm Cardio Narrative: Mildly increased HR........IV vol depletion or dysautonomia due to paraplegia? Denies lightheadedness, palpitations, racing heart. Increased HR could be due to constipation. GI normal to inspection, nondistended, normoactive bowel sounds and soft to palpation GI Narrative: the abd is soft and she has no guarding with palpation. Inspection: Negative for abdominal distention Extremity General Extremity: Negative for edema Skin General Skin Exam: no breakdown Rashes: no rashes Wound Narrative: the decub in the gluteal cleft has healed. Psych cooperative and affect normal Psych Narrative: She denies feeling depressed.......we went over the sx of depression. I told here it would be unusual for a person in her current state of health not to be depressed. Appearance: appropriate Assessment & Plan Assessment/Plan (1) Physical debility: (2) Myelopathy: PLAN: Continue physical therapy/Occupational Therapy. Will likely never walk again but, working on truncal stability so she will be able to sit upright and help with her care. (3) Paraplegia at T4 level: (4) Breast cancer in female: (5) Hypercalcemia: PLAN: Will likely need pamidronate as OP. Extensive bone mets. (6) Abnormal LFTs: (7) Neurogenic bladder: PLAN: continue to maintain the Mijares. 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 Coli. Finish 7 days of Cefadroxil PLAN: Plan 1. Continue therapy 2. Plan discharged home for , 11/08/2023. Family will be picking up DME tonight in preparation for discharge . 3. She has a follow-up appointment as scheduled with Dr. Brizuela on 11/13/2023. 4. Follow-up with orthopedic spine surgery has been scheduled for November. 5. We reviewed the symptoms of depression. 6. I educated the patient on why she needs to take stool softeners and why her colon is not going to work like it used to. She is agreeable to taking the stool softeners every day. 7. Schedule a Dulcolax suppository today since she is feeling bloated and had only a very hard bowel movement yesterday. Refused lunch because she feels bloated. Will start scheduling a Dulcolax suppository every 48 hours in the a.m. to try to keep her on a schedule. I spent 35 minutes today answering questions from Martha and her family in 2 sessions, reviewing the vital sign trend, recent laboratory and medications/medication compliance. Patient was also examined and documentation completed. Charges/Coding Visit Charges Inpatient E&M: 03864 Subs Hosp L2
[2023-11-05 19:42] VITALS: BP 130/87; PULSE 94; RESP 15; TEMP 36.9; O2SAT 94
[2023-11-05] MEDS: Senna/Docusate Sodium 1 Tablet 2 TABLET PO (21:08)
[2023-11-05] MEDS: Bisacodyl 10 MG Suppository RC (21:09)
[2023-11-06] MEDS: Menthol/Lanolin/Calamine/Znox 113 GM Tube 1 APPLIC TOPICAL ×2 (05:56→21:22)
[2023-11-06 07:30] VITALS: BP 116/86; PULSE 98; RESP 16; TEMP 36.6; O2SAT 98
[2023-11-06] MEDS: Juven (unflavored) Packet 1 PACKET PO ×2 (07:57→17:28)
[2023-11-06] MEDS: Polyethylene Glycol 3350 17 GM PACKET PO (07:57)
[2023-11-06] MEDS: Cefadroxil 500 MG CAPSULE 1000 MG PO (07:58)
[2023-11-06] MEDS: Multivitamins,Therapeutic Tablet 1 TABLET PO (07:58)
[2023-11-06] MEDS: Heparin Injection (Vial) 5,000 UNIT/ML VIAL 5000 UNIT SC ×2 (07:58→21:22)
[2023-11-06] MEDS: Nystatin/Triamcin Cream Tube 1 APPLIC TOPICAL ×2 (07:59→20:22)
[2023-11-06] MEDS: Senna/Docusate Sodium 1 Tablet 2 TABLET PO ×2 (08:00→21:23)
--- NOTE | 2023-11-06 13:54 | PCM.PROGNOTE ---
Subjective Subjective Afebrile VSS Maintaining appropriate oxygen saturation on RA Oral intake is [] Discussed with nursing - no problems that need addressed Reviewed the PT/OT/ST notes Medication list reviewed. Objective Data Objective Data Vital Signs: Vital Signs Temp Pulse Resp BP Pulse Ox O2 Del Method 97.9 F 98 16 116/86 H 98 Room Air 11/06/23 07:30 11/06/23 07:30 11/06/23 07:30 11/06/23 07:30 11/06/23 07:30 11/06/23 07:30 Oxygen Delivery Method Room Air Weight: 112 lb 3.445 oz Body Mass Index (BMI) 23.4 Intake & Output: Intake and Output for Last 24 Hours 11/04/23 11/05/23 11/06/23 23:59 23:59 23:59 Intake Total 2500 / 2500 3460 / 3760 2640 / 2640 Output Total 3800 / 3800 4100 / 4700 1400 / 1400 Balance -1300 / -1300 -640 / -940 1240 / 1240 Lab / Micro Data 11/04/23 04:30 11/04/23 04:30 Micro: Microbiology 11/01/23 07:25 Urine Catheter - Catheter Urine Culture - Final Presumptive E. coli
--- NOTE | 2023-11-06 14:50 | CASEMGMT ---
Social Work Received call from [facility] stating they can no longer provide SN, and provided a company name to outsource for SN that accepts [facility]/Private Pay named [facility] Nurse, Leonor. LESVIA phoned Leonor at [facility] Nurse and Leonor confirmed SN services and requested referral. Leonor confirmed she can provide [facility] supplies as well, but will need order. LESVIA faxed referral. SW updated [facility] and [facility] can accept for PT/OT. requesting script for hospital bed be sent to [facility]. LESVIA faxed script. Plan: DC home 11/08, [facility] PT/OT, [facility] KYLE Roe
[2023-11-06 20:38] VITALS: BP 125/86; PULSE 103; RESP 15; TEMP 36.8; O2SAT 96
[2023-11-06 22:00] VITALS: PULSE 96; RESP 15; O2SAT 96
[2023-11-07] MEDS: Menthol/Lanolin/Calamine/Znox 113 GM Tube 1 APPLIC TOPICAL ×2 (05:32→20:53)
[2023-11-07] MEDS: Polyethylene Glycol 3350 17 GM PACKET PO (08:43)
[2023-11-07] MEDS: Juven (unflavored) Packet 1 PACKET PO ×2 (08:43→16:07)
[2023-11-07] MEDS: Senna/Docusate Sodium 1 Tablet 2 TABLET PO ×2 (08:44→20:53)
[2023-11-07] MEDS: Multivitamins,Therapeutic Tablet 1 TABLET PO (08:44)
[2023-11-07] MEDS: Nystatin/Triamcin Cream Tube 1 APPLIC TOPICAL ×2 (08:44→20:40)
[2023-11-07] MEDS: Heparin Injection (Vial) 5,000 UNIT/ML VIAL 5000 UNIT SC ×2 (08:44→20:53)
[2023-11-07] MEDS: Cefadroxil 500 MG CAPSULE 1000 MG PO (08:44)
[2023-11-07 08:48] VITALS: BP 114/85; PULSE 103; RESP 16; TEMP 36.1; O2SAT 94
--- NOTE | 2023-11-07 11:42 | DCINST_ITS ---
Discharge Instructions Diet Discharge Diet: No restrictions Activity Discharge Activity: - (Pt is paraplegic and requires a lot of assistance for transfers, bathing, changing positions in the bed, etc.) Weight Bearing Status: No weight bearing (she is paraplegic and non-ambulatory. ) Dressing / Incision Call your doctor if your incision/area has: Continuous Slow Oozing, Sudden Increased Bleeding, Increased Pain/ Swelling, Increased Redness, Foul Smelling Discharge and Swelling at the incision site Call your doctor if you observe: Inability to have a bowel movement, Shortness of breath, Dizziness, Fainting spells, Chest pain, Increased palpitations (irregular heartbeat), Uncontrolled pain and - (fever > 100.5 F ) Suture Line Care: Avoid Pulling/Pushing and Avoid Pinching/Bending Cleanse incision/area with: Soap & Water and - (Do not soak the incision. Wash with soap and water and then pat dry immediately.) Catheter: Mijares to large bag Follow Up Care When: Multiple appts made.....Dr. Brizuela, Dr. Sherman Stoddard, Dr. Mayers (orthopedic spine surgeon) Test Results: Test results from this visit will be discussed in further detail at your follow- up appointment, if applicable. 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 The incision looks excellent and is healing well. Have someone look at the incision everyday. If there is increasing redness around the incision, increased swelling around the incision, any Discharge from the incision or any openings in the incision notify Dr. Stoddard or Dr. Mayers immediately. 2. Always look at the catheter and the catheter bag every day. The urinary catheter is a foreign body and when any foreign body is inserted into the human body it can be a source for infection. You can not urinate normally due to the damage to the spinal cord from the tumor in the vertebrae and pressure on the spinal cord. you will in all likelihood always need a Mijares catheter. Do NOT attempt to remove the catheter. You will have a nurse who visits and cares for the catheter........if you are having any problems with the catheter CALL THE NURSE. If you have a fever of > 100.5 degrees Fahrenheit, shaking chills, increased fatigue, decreased appetite, nausea or vomiting call Dr. Stoddard. Other signs that you may have a urinary tract infection are blood in the urine, cloudiness of the urine and change in mental statue (such as confusion). 3. Because you do not have feeling in your buttocks and legs you are at risk for pressure ulcers. It is VERY important to change positions at least every 2 hours to prevent pressure sores. Do not sit in the wheel chair for more than 2 hours without getting in bed on your side and getting the pressure off the buttocks and back. Someone should do a skin survey looking at the back, buttocks, feet, legs everyday looking for new sores. Pressure ulcers start as a reddened area that does not bethany when you apply pressure to the area. This is a stage I pressure ulcer. Report ANY new reddened areas to the nurse because these can rapidly progress and lead to openings in the skin which allows bacteria in and can lead to a serious infections........elena in immunocompromised patients with cancer and on chemo. Pressure ulcers AND the Mijares both put you at risk for developing infections.......you must be vigilant about reporting any suspected infection to Dr. Stoddard or Dr. Brizuela. 4. You have not been taking anything for pain. I want you to have something stronger than Tylenol or Advil in case you get bad pain. I am giving you a prescription for Oxycodone to take home with you. For mild pain it would be OK to take Tylenol or Ibuprofen(also called Advil) for pain. These medications are available at any pharmacy and you can follow the directions on the box. If Tylenol and/or ibuprofen are not adequately relieving the pain then you should take the oxycodone. 5. IT IS VERY IMPORTANT THAT YOU TAKE THE STOOL SOFTENERS ORDERED. Because of the damage to the spinal cord the nerves to the colon do NOT work. The stool must be kept soft so that it can be expelled easily from the rectum. Most patients who are paraplegic need a stimulate (such as a suppository) to stimulate a good bowel movement. The muscles in the abdomen are weak and this is why you can not sit up without assistance. These are the muscles that help to push the stool through the colon and out the rectum also. I would like you to have a soft BM every day or every other day. If you go 3 days without a BM let your nurse know or call Dr. Stoddard's office. People with paraplegia can develop bowel obstructions so pay attention to how often your bowels are moving. If your abd becomes distended or you have nausea and vomiting (elena if the vomit smells like stool) call Dr. Stoddard immediately or go to the emergency room. 6. It is very common for people diagnosed with cancer to become depressed. We are giving you printed information describing the symptoms of depression. If you feel you are becoming depressed ask for help. Dr. Stoddard would be a good person to talk to if you are having symptoms of depression. 7. If you have any questions before you have your appt with Dr. Stoddard please do not hesitate to call me. OFFICE: [phone] CELL: [phone] God kenton Thomas and I pray that things go well for you. Discharge Orders/Prescriptions Prescriptions: New oxycodone 5 mg Tablet 5 - 10 mg PO Q4H PRN PRN (Reason: Pain Score 1-10) 7 Days Qty: 30 0RF polyethylene glycol 3350 17 gram Powder In Packet 17 g PO DAILY Qty: 31 0RF sennosides-docusate sodium [Stool Softener-Stimulant Laxat] 8.6-50 mg Tablet 2 tab PO BID Qty: 120 0RF bisacodyl 10 mg Suppository 10 mg GA Q48H Qty: 15 0RF menthol-zinc oxide [Calmoseptine] 0.44-20.6 % Ointment 1 applic topical 0600,2200 Qty: 1 0RF Protocol: *Topical Application Instructions APPLICATION INSTRUCTIONS: coccyx acetaminophen [Tylenol] 325 mg tablet 650 mg PO Q6H PRN (Reason: pain or fever >100.5 F) Qty: 120 0RF Continued multivitamin [Daily Multi-Vitamin] Tablet 1 tab PO DAILY Discontinued acetaminophen 500 mg tablet 1,000 mg PO Q8 methocarbamol 500 mg tablet 500 mg PO Q6H PRN (Reason: muscle spasm) oxycodone 5 mg tablet 5 mg PO Q6H PRN (Reason: pain) Referrals / Follow Up: kg Mayers [Other] - 11/26/23 11:30 am Sherman Stoddard DO [Non-Staff] - (Primary Care Physician Call and make an appointment ) Gaby Galdamez MD [Med Staff - Active Staff] - 11/21/23 2:00 pm (for urine retention-Mijares catheter ) Nacho Brizuela DO [Med Staff - Active Staff] - 11/13/23 2:00 pm Disposition Disposition (needs filled in before D/C Order can be placed): Home Health Service
[2023-11-07 19:35] VITALS: BP 123/82; PULSE 94; RESP 16; TEMP 36.7; O2SAT 95
[2023-11-07] MEDS: Bisacodyl 10 MG Suppository RC (20:40)
[2023-11-07 22:00] VITALS: PULSE 94; RESP 16; O2SAT 96
[2023-11-08] MEDS: Menthol/Lanolin/Calamine/Znox 113 GM Tube 1 APPLIC TOPICAL (05:44)
--- NOTE | 2023-11-08 09:01 | PCM.DC.SUM ---
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 Continue physical therapy/Occupational Therapy at home with [facility]. Will likely never walk again but, working on truncal stability so she will be able to sit upright and help with her care. (3) Paraplegia at T4 level: Status: Chronic Code(s): G82.20 - Paraplegia, unspecified (4) History of spinal fusion: Status: Chronic Code(s): Z98.1 - Arthrodesis status Plan: T2-L2 fusion and T5/T6 decompression with a transpedicular approach for tumor resection. (5) Breast cancer in female: Status: Acute Code(s): C50.919 - Malignant neoplasm of unspecified site of unspecified female breast Plan: With mets to BL lungs, Liver and bone. She also has a left adnexal mass on CT scan. Large mass in the R breast. (6) Hypercalcemia: Status: Acute Code(s): E83.52 - Hypercalcemia Plan: Will likely need pamidronate as OP. Extensive bone mets. Had Pamidronate 90 mg IV X 1 while on the rehab unit. (7) Abnormal LFTs: Status: Acute Code(s): R79.89 - Other specified abnormal findings of blood chemistry (8) Neurogenic bladder: Status: Acute Code(s): N31.9 - Neuromuscular dysfunction of bladder, unspecified Plan: Continue to maintain the Mijares. (9) Constipation due to neurogenic bowel: Status: Acute Code(s): K59.00 - Constipation, unspecified; K59.2 - Neurogenic bowel, not elsewhere classified (10) Cystitis: Status: Resolved Code(s): N30.90 - Cystitis, unspecified without hematuria Plan: Due to zhu-sensitive E. Coli. Finish 7 days of Cefadroxil Plan 1. Continue therapy with [facility] PT/OT 2. Plan discharg home for today. 3. She has a follow-up appointment as scheduled with Dr. Brizuela on 11/13/2023. 4. Follow-up with orthopedic spine surgery has been scheduled for November. Dr. Emir Mayers. 5. We reviewed the symptoms of depression once again with the pt and family 6. I educated the patient and her family on why she needs to take stool softeners and why her colon is not going to work like it used to. She is agreeable to taking the stool softeners every day. Medications at Discharge Home Medications multivitamin (Daily Multi-Vitamin tablet) 1 tab PO DAILY supplement 10/16/23 acetaminophen 325 mg tablet (Tylenol) 650 mg (2 x 325 mg) PO Q6H PRN pain or fever >100.5 F #120 tabs 11/07/23 bisacodyl 10 mg rectal suppository 10 mg UT Q48H #15 ea 11/07/23 menthol 0.44 %-zinc oxide 20.6 % topical ointment (Calmoseptine) 1 applic topical 0600,2200 #1 tube 11/07/23 oxycodone 5 mg tablet 5 - 10 mg (1 - 2 x 5 mg) PO Q4H PRN PRN Pain Score 1-10 1 week #30 tabs 11/07/23 polyethylene glycol 3350 17 gram oral powder packet 17 g PO DAILY #31 doses 11/07/23 sennosides 8.6 mg-docusate sodium 50 mg tablet (Stool Softener-Stimulant Laxative) 2 tab PO BID #120 tabs 11/07/23 Hospital Course Operations - ([facility]. Dr. Emir Mayers performed a T2-L2 posterior instrumented fusion and T5/6 decompression with a transpedicular approach for tumor resection.) Procedures None Summary of Care Provided Minutes Spent on Discharge: 50 Hospital Course: MARTHA GIL, is a 48 F who presented to the ED at [facility] on 10/04/2023 complaining of mid/low back pain that began in April 2023. She saw a chiropractor and it seemed to get a little better but a few days prior to presenting to the emergency department pain became intractable and she was taking large amounts of Motrin. She also complained that she had decreased sensation and weakness in her legs and did not feel that her legs were working right . She told the ED physician that she felt a mass in her breast in 2017 and she opted to treat it naturally . Her PCP had recommended a mammogram and breast biopsy but, this was refused. She denied any problems with urinary or fecal incontinence. On physical examination she had decreased rectal tone and decreased sensation. Mijares catheter was inserted and she had 2 L of urine in the bladder. She had minimal movement against gravity for the bilateral lower extremities. There was decreased sensation in both lower extremities. CT of the chest/abdomen/pelvis were ordered. CT scan of the abdomen and pelvis showed multiple hypodense lesions throughout the liver measuring up to 2 cm consistent with metastatic disease, a complex cystic left adnexal lesion measuring 6.1 x 4.9 cm and multiple sclerotic lesions throughout the visualized osseous structures consistent with metastatic disease with a pathologic compression fracture of T12 with mildly retropulsed fracture fragment. The CT chest showed multiple metastatic lesions in the thoracic spine and sternum. There was pathologic compression fractures of T5 and T12. There was a soft tissue mass associated with the T5 fracture which extended through the posterior vertebral body margin into the epidural space causing severe central canal stenosis with compression of the thoracic spinal cord. There was a large irregular right breast mass measuring 6.8 cm and multiple metastatic nodules throughout both lungs. After reviewing the results of the CT scans and MRI of the lumbar spine was ordered and showed a pathologic compression deformity of T12 causing mild spinal stenosis and a 12 mm sclerotic metastasis of the L2 vertebral body. MRI of the thoracic spine showed extensive metastatic disease involving multiple thoracic vertebral bodies, lungs and liver. There was marked cord compression at T5 secondary to an expanding soft tissue mass of the T5 vertebral body and left pedicle. There was mild spinal stenosis at the T12 level related to a pathologic compression fracture of T12. She was transferred to [facility] and was accepted by Dr. Emir Mayers from spine surgery. She was taken to surgery on 10/04/2023 and had T2-L2 posterior instrumented fusion and T5/6 decompression with a transpedicular approach for tumor resection. The postoperative course was complicated by thrombocytopenia and anemia requiring 1 unit of platelets and 1 unit of packed red blood cells. She was seen in consult by rehabilitative medicine prior to DC from [facility] and acute inpt rehab was recommended but, the financial consultant was not aware of the tumor diagnosis at the time of the consult. She was transferred to the acute inpt rehab unit at [facility] on 10/16/23 for 3 hours of therapy daily. 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 Martha came to us with a Mijares catheter inserted for urine retention due to neurogenic bladder. She was also incontinent of stool and severely constipated at the same time due to neurogenic colon. Mijares was maintained and she was started on a bowel program. Prior to DC she is having usually 1 BM a day and is taking Senna 2 tabs BID, Miralax 17 GM daily and she gets a Dulcolax suppository every other day. Martha had a catheter related UTI while on rehab due to a zhu-sensitive E. Coli. She was treated with 7 days of cefadroxil. Prior to discharge the urine was pale yellow and clear. The Mijares was changed following the UTI dx. HGB at arrival to rehab was 12.5 however, she was very dehydrated due to polyuria related to hypercalcemia. The HGB at NC is stable at 11.5. Hypercalcemia was treated with aggressive hydration and 90 mg of IV pamidronate. The calcium corrected for hypoalbuminemia a few days prior to discharge is stable at 10.3 and she is asymptomatic. BUN at discharge is 16 with a creatinine of 0.32 which is stable. Bilirubin is within normal limits but the AST is elevated at 60, the ALT is elevated at 112 and the alkaline phosphatase is elevated at 159. Prior to DC Martha's family came to rehab for extensive family training to learn how best to assist Martha. Therapy has been using a sliding board for transfers but, since she is still requiring MAX assist X 2 for all sliding board transfers the family will be using a Sheridan lift for safety. Martha is able to propel a WC up to 250 feet with supervision on various surfaces. She was able to complete a 75 foot wheelchair ramp at standby assist. She is MAX/MOD assist X 1 for rolling in the bed and MAX assist X 1 (or MOD assist X2) for going from supine to sitting. She is supervision/set up for eating and grooming. She is MOD assist for upper body dressing and total assist for lower body dressing. She is also total assist for toileting, toilet transfer and tub/shower t She is mi Assist for bathing once she gets in the shower. Using a Sheridan to transfer into the shower. She is able to sit upright in the WC without being strapped in at the time of DC from rehab. She is able to sit at the EOB at SBA/CGA for up to 4 minutes if she is holding onto the bed rail or has both UE's planted on the bed surface to support her. Martha is sleeping well at night and has good appetite and intake. We have discussed the sx of depression on several occasions and we agree she is not depressed at the present time. She knows the Symptoms of depression and will discuss with Dr. Stoddard going forward if she develops any symptoms of depression. Family has obtained a Sheridan lift, hospital bed with a low air loss mattress to aid in preventing pressure ulcers, WC, slide board,drop arm BSC, extended tub bench and a hand hold shower. She will have HHC for PT/OT from the [facility]. longterm is to be provided by [facility]. Martha was discharged on 11/08/23 to home with family. An ambulance was arranged for transport by the . She has appt's scheduled with Dr. Nacho Brizuela on 11/13/2023 at 2 PM, Dr. Emir Mayers on 11/26/2023 at 11:[address] Sherman Stoddard. A total of 50 minutes was spent ordering medications, going over DC instructions with the patient and her family, preparing documentation and DC paperwork and completing the DC physical exam. Physical Exam Const alert, oriented x3 and no apparent distress General Appearance: cooperative Orientation / Consciousness: Negative for confused HEENT normocephalic and head/scalp atraumatic Mouth: dry mucous membranes Neck supple Resp normal respiratory effort, normal air movement and clear to auscultation bilaterally Resp Narrative: Denies CP, SOB, cough. Effort and Inspection: Negative for tachypneic or labored Cardio regular rhythm, no murmurs, no rub and no gallops Cardio Narrative: Increased resting HR......I suspect this may be due to dysautonomia. No ectopy. GI normal to inspection, nondistended, normoactive bowel sounds, soft to palpation and non-tender GI Narrative: No guarding with palpation. Inspection: Negative for abdominal distention Extremity Extremity Narrative: No pitting edema. The toes on both feet are warm and there is no cyanosis. General Extremity: Negative for cyanosis or edema Skin skin turgor normal Skin Narrative: The small decubitus ulcer in the gluteal cleft is still present. It is smaller than at admission but, it is still present. There is no odor and no purulent DC. No erythema around the opening. No openings over the buttocks. No pressure ulcers on the heels or the feet. The incision is intact with no dehiscence. There is no shruthi-incisional erythema and no swelling around the incision. No DC. General Skin Exam: dry skin Rashes: no rashes Wound Narrative: Few areas of ecchymosis on the abd from Lovenox injections. Neuro CN's II-XII intact bilaterally Neuro Narrative: She has no movement. She has no sensation below the epigastric area. She can feel me touch her with a pin just to the left of the epigastric area.......but, the sensation is not sharp it is dull......this has not changed recently. Patellar reflexes are hyperactive BL. The Achilles reflexes are hyperactive and associated with ankle clonus. Dorsiflexion of the foot elicits clonus BL. Clonus is worse on the RLE. Good strength in the UE's BL. Coordination / Balance: [id number] test normal Speech: speech normal Psych Psych Narrative: She is a little less exuberant today than she has been. Still denying depressed feelings. Still hopeful that the cancer can be treated and she will do well but, acknowledges that she has been told at [facility] and by myself that the cancer is not curable. Appearance: appropriate Attitude: No agitated Activity / Motor Behavior: Negative for restless Thought Content: No suicidality and No hallucination(s) Weight / BMI Weight Weight: 112 lb 3.445 oz Body Mass Index (BMI) 23.4 ABG / Lab / Microbiology Data 11/04/23 04:30 11/04/23 04:30 Microbiology: Microbiology 11/01/23 07:25 Urine Catheter - Catheter Urine Culture - Final Presumptive E. coli D/C Instructions Discharge Diet: No restrictions Weight Bearing Status: No weight bearing (she is paraplegic and non-ambulatory. ) Call your doctor if your incision/area has: Continuous Slow Oozing, Sudden Increased Bleeding, Increased Pain/ Swelling, Increased Redness, Foul Smelling Discharge and Swelling at the incision site Call your doctor if you observe: Inability to have a bowel movement, Shortness of breath, Dizziness, Fainting spells, Chest pain, Increased palpitations (irregular heartbeat), Uncontrolled pain and - (fever > 100.5 F ) Suture Line Care: Avoid Pulling/Pushing and Avoid Pinching/Bending Cleanse incision/area with: Soap & Water and - (Do not soak the incision. Wash with soap and water and then pat dry immediately.) Catheter: Mijares to large bag Pending Tests Upon Discharge: none When: Multiple appts made.....Dr. Brizuela, Dr. Sherman Stoddard, Dr. Mayers (orthopedic spine surgeon) Meaningful Use Info Meaningful Use Diagnoses (Choose all that apply): None applicable Discharge Plan Admission Admit Date/Time: 10/16/23 15:41 Primary Reason for Your Visit: Debility due to severe spinal canal stenosis due to metastatic breast tumor Attending Provider: Genet Rm Primary Care Provider: Care Physician,No Primary Instructions Patient Instructions: Bowel Obstruction, Pressure Ulcer How Form, Pressure Injury Reduce Risk, Pressure Injury Stages Staff, Depression Affects Your Mind ..., Preventing Pressure Injuries, Caring for Your Incision, ED Mijares Catheter, Care Additional Instructions / Restrictions: 1. The incision looks excellent and is healing well. Have someone look at the incision everyday. If there is increasing redness around the incision, increased swelling around the incision, any Discharge from the incision or any openings in the incision notify Dr. Stoddard or Dr. Mayers immediately. 2. Always look at the catheter and the catheter bag every day. The urinary catheter is a foreign body and when any foreign body is inserted into the human body it can be a source for infection. You can not urinate normally due to the damage to the spinal cord from the tumor in the vertebrae and pressure on the spinal cord. you will in all likelihood always need a Mijares catheter. Do NOT attempt to remove the catheter. You will have a nurse who visits and cares for the catheter........if you are having any problems with the catheter CALL THE NURSE. If you have a fever of > 100.5 degrees Fahrenheit, shaking chills, increased fatigue, decreased appetite, nausea or vomiting call Dr. Stoddard. Other signs that you may have a urinary tract infection are blood in the urine, cloudiness of the urine and change in mental statue (such as confusion). 3. Because you do not have feeling in your buttocks and legs you are at risk for pressure ulcers. It is VERY important to change positions at least every 2 hours to prevent pressure sores. Do not sit in the wheel chair for more than 2 hours without getting in bed on your side and getting the pressure off the buttocks and back. Someone should do a skin survey looking at the back, buttocks, feet, legs everyday looking for new sores. Pressure ulcers start as a reddened area that does not bethany when you apply pressure to the area. This is a stage I pressure ulcer. Report ANY new reddened areas to the nurse because these can rapidly progress and lead to openings in the skin which allows bacteria in and can lead to a serious infections........elena in immunocompromised patients with cancer and on chemo. Pressure ulcers AND the Mijares both put you at risk for developing infections.......you must be vigilant about reporting any suspected infection to Dr. Stoddard or Dr. Brizuela. 4. You have not been taking anything for pain. I want you to have something stronger than Tylenol or Advil in case you get bad pain. I am giving you a prescription for Oxycodone to take home with you. For mild pain it would be OK to take Tylenol or Ibuprofen(also called Advil) for pain. These medications are available at any pharmacy and you can follow the directions on the box. If Tylenol and/or ibuprofen are not adequately relieving the pain then you should take the oxycodone. 5. IT IS VERY IMPORTANT THAT YOU TAKE THE STOOL SOFTENERS ORDERED. Because of the damage to the spinal cord the nerves to the colon do NOT work. The stool must be kept soft so that it can be expelled easily from the rectum. Most patients who are paraplegic need a stimulate (such as a suppository) to stimulate a good bowel movement. The muscles in the abdomen are weak and this is why you can not sit up without assistance. These are the muscles that help to push the stool through the colon and out the rectum also. I would like you to have a soft BM every day or every other day. If you go 3 days without a BM let your nurse know or call Dr. Stoddard's office. People with paraplegia can develop bowel obstructions so pay attention to how often your bowels are moving. If your abd becomes distended or you have nausea and vomiting (elena if the vomit smells like stool) call Dr. Stoddard immediately or go to the emergency room. 6. It is very common for people diagnosed with cancer to become depressed. We are giving you printed information describing the symptoms of depression. If you feel you are becoming depressed ask for help. Dr. Stoddard would be a good person to talk to if you are having symptoms of depression. 7. If you have any questions before you have your appt with Dr. Stoddard please do not hesitate to call me. OFFICE: [phone] CELL: [phone] God kenton Thomas and I pray that things go well for you. Discharge Orders/Prescriptions Prescriptions: New oxycodone 5 mg Tablet 5 - 10 mg PO Q4H PRN PRN (Reason: Pain Score 1-10) 7 Days Qty: 30 0RF polyethylene glycol 3350 17 gram Powder In Packet 17 g PO DAILY Qty: 31 0RF sennosides-docusate sodium [Stool Softener-Stimulant Laxat] 8.6-50 mg Tablet 2 tab PO BID Qty: 120 0RF bisacodyl 10 mg Suppository 10 mg UT Q48H Qty: 15 0RF menthol-zinc oxide [Calmoseptine] 0.44-20.6 % Ointment 1 applic topical 0600,2200 Qty: 1 0RF Protocol: *Topical Application Instructions APPLICATION INSTRUCTIONS: coccyx acetaminophen [Tylenol] 325 mg tablet 650 mg PO Q6H PRN (Reason: pain or fever >100.5 F) Qty: 120 0RF Continued multivitamin [Daily Multi-Vitamin] Tablet 1 tab PO DAILY Discontinued acetaminophen 500 mg tablet 1,000 mg PO Q8 methocarbamol 500 mg tablet 500 mg PO Q6H PRN (Reason: muscle spasm) oxycodone 5 mg tablet 5 mg PO Q6H PRN (Reason: pain) Referrals / Follow Up: emir Mayers [Other] - 11/26/23 11:30 am Sherman Stoddard DO [Non-Staff] - 11/20/23 9:30 am Gaby Galdamez MD [Med Staff - Active Staff] - None Nacho Brizuela DO [Med Staff - Active Staff] - 11/13/23 2:00 pm Disposition Disposition (needs filled in before D/C Order can be placed): Home Health Service Charges/Coding Visit Charges Inpatient E&M: 73594 Subs Hosp L2
[2023-11-08] MEDS: Senna/Docusate Sodium 1 Tablet 2 TABLET PO (09:05)
[2023-11-08] MEDS: Polyethylene Glycol 3350 17 GM PACKET PO (09:05)
[2023-11-08] MEDS: Cefadroxil 500 MG CAPSULE 1000 MG PO (09:05)
[2023-11-08] MEDS: Multivitamins,Therapeutic Tablet 1 TABLET PO (09:05)
[2023-11-08] MEDS: Nystatin/Triamcin Cream Tube 1 APPLIC TOPICAL (09:06)
[2023-11-08] MEDS: Juven (unflavored) Packet 1 PACKET PO (09:06)
[2023-11-08] MEDS: Heparin Injection (Vial) 5,000 UNIT/ML VIAL 5000 UNIT SC (09:06)
[2023-11-08 10:00] VITALS: BP 102/79; PULSE 97; RESP 16; TEMP 36.6; O2SAT 97
== END 2023-11-08 16:00 | disposition home health service (06) | DRG 560 ==
PROVIDERS: Admitting Provider Internal Medicine; Visit Provider Internal Medicine
DX: Z47.89 Encounter for other orthopedic aftercare (principal); C79.51 Secondary malignant neoplasm of bone; G99.2 Myelopathy in diseases classified elsewhere; C78.01 Secondary malignant neoplasm of right lung; C78.02 Secondary malignant neoplasm of left lung; K59.2 Neurogenic bowel, not elsewhere classified; G82.20 Paraplegia, unspecified; C78.7 Secondary malignant neoplasm of liver and intrahepatic bile duct; E87.1 Hypo-osmolality and hyponatremia; E88.09 Other disorders of plasma-protein metabolism, not elsewhere classified; L89.152 Pressure ulcer of sacral region, stage 2; T83.511A Infection and inflammatory reaction due to indwelling urethral catheter, initial encounter; C50.919 Malignant neoplasm of unspecified site of unspecified female breast; C50.911 Malignant neoplasm of unspecified site of right female breast; E83.52 Hypercalcemia; N31.9 Neuromuscular dysfunction of bladder, unspecified; N30.90 Cystitis, unspecified without hematuria; Z98.1 Arthrodesis status; B96.20 Unspecified Escherichia coli [E. coli] as the cause of diseases classified elsewhere
CPT/HCPCS: 36415; 80048; 80053; 81001; 82040; 82330; 83735; 83970; 84100; 85014; 85018; 85025; 85027; 87086; 87088; 87186; 97110; 97112; 97140; 97162; 97166; 97530; 97535; 97542; 97802; 97803; J7030; A4216; J2430

== ENCOUNTER → 2023-12-14 | Outpatient (CLI) | payer SELFPAY ==
[2023-12-14 13:53] LABS: Erythrocyte Sedimentation Rate 24 mm/hr (0-30)
[2023-12-14 13:55] LABS: Hematocrit 44.7 % (37-47); Hemoglobin 14.3 g/dL (12.0-15.0); Mean Corpuscular Hgb 27.2 pg (27.0-32.0); Mean Platelet Vol. 9.5 fl (6.2-12.0); Platelet Count 346 K/mm3 (150-450); RBC Distribution Width CV 14.1 % (11.6-14.6); RBC Distribution Width SD 43.4 fl (35.1-43.9); Red Blood Count 5.26 M/mm3 (4.2-5.4); White Blood Count 5.5 K/mm3 (4.4-11.0)
[2023-12-14 14:30] LABS: Vitamin B12 1328 pg/mL (211-911)
[2023-12-14 15:29] LABS: ALB/GLOB Ratio 0.8 RATIO (0.9-2.4); AST(SGOT) 87 U/L (15-37); Alanine Aminotransfer ALT/SGPT 110 U/L (13-56); Albumin, Serum 3.4 g/dL (3.2-5.0); Alkaline Phosphatase 212 U/L (45-117); Anion Gap 10 (5-15); BUN 6 mg/dL (7-18); BUN/Creat Ratio 13.8 RATIO (10-20); CRP 5.06 mg/L (0.0-3.0); Calcium,Total 9.8 mg/dL (8.5-10.1); Chloride 105 mmol/L (98-107); Creatinine, Serum 0.44 mg/dL (0.55-1.02); EST Glomerular Filtration Rate 164 mL/min (>60); Est Glom Filt Rate - Afr Amer 199 mL/min (>60); Ferritin 1076 ng/mL (8-252); Globulin 4.2 g/dL (2.2-4.2); Glucose 78 mg/dL (74-106); Iron 54 ug/dL (50-170); Iron Binding Capacity,Total 275 ug/dL (250-450); PERCENT IRON SATURATION 19.6 % (15.0-55.0); Potassium 3.8 mmol/L (3.5-5.1); Protein, Total 7.6 g/dL (6.4-8.2); Sodium Level 137 mmol/L (136-145); Thyroid Stim Hormone (TSH) 2.01 uIU/mL (0.358-3.74)
== END | disposition home or self-care (01) ==
LOC: LAB 12:51
PROVIDERS: PCP Family Medicine; Visit Provider Legal Medicine
DX: C50.911 Malignant neoplasm of unspecified site of right female breast (principal); C78.7 Secondary malignant neoplasm of liver and intrahepatic bile duct; C79.51 Secondary malignant neoplasm of bone
CPT/HCPCS: 36415; 80053; 82378; 82607; 82728; 82746; 83540; 83550; 84443; 85027; 85652; 86140; 86300

== ENCOUNTER 2024-08-27 11:18 | Emergency (ER) | payer OTHER, SELFPAY ==
[2024-08-27 11:19] VITALS: BP 123/87; PULSE 120; RESP 15; TEMP 36.8; O2SAT 95
[2024-08-27 11:21] VITALS: BMI 20.7
--- NOTE | 2024-08-27 11:47 | RAD_ITS ---
STUDY: X-RAY CHEST REASON FOR EXAM: Female, 49 years old. cough TECHNIQUE: PA and lateral views of the chest. COMPARISON: 10/04/2023 FINDINGS: EKG leads overlie the chest. Since the previous study, patient has undergone placement of pedicle screws and Swenson rods. Hardware is intact and free of complication The lungs are clear and expanded. There is no demonstrated pleural abnormality. Normal size heart. Normal mediastinum and margarita. Normal visualized pulmonary arteries. Normal visualized aortic arch and descending thoracic aorta. Normal visualized ribs, clavicles, and shoulders. There is no demonstrated abnormality of the visualized soft tissue structures of the upper abdomen. RAD/Chest PA and Lateral IMPRESSION: No acute pulmonary process Electronically Signed: Daniel Padron MD at 12:34 EST ,
--- NOTE | 2024-08-27 11:49 | EDS_ITS ---
HPI History of Present Illness Chief Complaint: Fever Informant: patient and spouse/S.O. Narrative Narrative: Referred from [facility] for evaluation of fever starting yesterday. Patient history of breast cancer diagnosed past September followed by oncologist Dr. Fab mckeon. She had radiation therapy for a week she has been on what she reports hormone therapy of pills and then injections monthly. Her last injection was last month. She is on pills 3 weeks on and 1 week off. She currently on her off week. Started having cough yesterday. Fever of 102.7 around 5 to 6 PM she has not taken any antipyretics has been trending down. Afebrile here and in the [facility] clinic. No vomiting diarrhea. No urinary symptoms. However patient is a paraplegic and self caths. [facility] Medical History Spinal stenosis Breast cancer in female History of transfusion of platelets History of transfusion of packed RBC Pathologic compression fracture of spine Home Medications ?Medication ?Instructions ?Recorded ?Last Taken ?Type multivitamin (Daily Multi-Vitamin 1 tab PO DAILY supplement 10/16/23 Unknown History tablet) acetaminophen 325 mg tablet 650 mg (2 x 325 mg) PO Q6H PRN 11/07/23 Unknown Rx (Tylenol) pain or fever >100.5 F #120 tabs bisacodyl 10 mg rectal suppository 10 mg SD Q48H #15 ea 11/07/23 Unknown Rx menthol 0.44 %-zinc oxide 20.6 % 1 applic topical 0600,2200 #1 tube 11/07/23 Unknown Rx topical ointment (Calmoseptine) oxycodone 5 mg tablet 5 - 10 mg (1 - 2 x 5 mg) PO Q4H 11/07/23 Unknown Rx PRN PRN Pain Score 1-10 1 week #30 tabs polyethylene glycol 3350 17 gram 17 g PO DAILY #31 doses 11/07/23 Unknown Rx oral powder packet sennosides 8.6 mg-docusate sodium 2 tab PO BID #120 tabs 11/07/23 Unknown Rx 50 mg tablet (Stool Softener-Stimulant Laxative) amoxicillin 875 mg-potassium 875 mg PO Q12H #20 TABLETS 08/27/24 Unknown Rx clavulanate 125 mg tablet ribociclib [Kisqali] PO 08/27/24 Unknown History Allergy/AdvReac Type Severity Reaction Status Date / Time No Known Allergies Allergy Verified 08/27/24 11:19 Family History Grandmother No problems noted. Mother , Mother was at the age of 66 of breast cancer. She had a mastectomy but refused chemotherapy. Cancer Surgical History History of spinal fusion Social History household members: spouse, children and other details: Her son's name is Nacho Billingsley and he is 5 years old. 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 Smoking Status: Never smoker alcohol intake: never substance use type: does not use and other details: Cannabis ROS ROS ED Constitutional Constitutional ED: Reports fever(s); Denies chills or sweats Eyes Eyes: Denies change in vision ENT ENT ED: Denies dysphagia or sore throat Cardiovascular Cardiovascular: Denies chest pain, leg edema, palpitations or racing heartbeat Respiratory/Chest Respiratory/Chest: Reports cough; Denies dyspnea or dyspnea on exertion Gastrointestinal Gastrointestinal: Denies abdominal pain, diarrhea, nausea or vomiting Genitourinary Genitourinary ED: Denies dysuria, hematuria or urinary frequency Musculoskeletal Musculoskeletal: Denies back pain, extremity pain or neck pain Integumentary Denies rash or wounds Neurologic Neurologic: Denies headache(s), paresthesias or weakness EXAM Physical Exam Const Vital Signs: 08/27/24 11:18 08/27/24 11:19 08/27/24 12:04 Temperature 98.3 F 98.6 F Temperature Source Oral Oral Pulse Rate 120 H 118 H Respiratory Rate 15 18 Respiratory Effort Normal Respiratory Pattern Normal Blood Pressure 123/87 H 120/87 H Blood Pressure Mean 99 98 Pulse Ox 95 97 Oxygen Delivery Method Room Air Room Air 08/27/24 13:00 08/27/24 14:00 08/27/24 14:28 Temperature 98.9 F 98.9 F 98.6 F Temperature Source Oral Oral Pulse Rate 112 H 111 H 78 Respiratory Rate 18 18 16 Respiratory Effort Respiratory Pattern Blood Pressure 143/90 H 130/93 H 130/93 H Blood Pressure Mean 107 105 105 Pulse Ox 97 96 99 Oxygen Delivery Method Room Air Room Air Positive well nourished and well developed General Appearance ED: well developed and NAD HEENT Reports moist mucous membranes and dry mucous membranes normocephalic and atraumatic Mouth ED: Yes dry mucous membranes Mouth: dry mucous membranes Eyes EOMs intact bilaterally and conjunctivae normal General Eye ED: Yes normal appearance of both eyes Neck no lymphadenopathy and supple General: Negative for tenderness Chest Wall Chest: Negative for tenderness Resp normal respiratory effort and normal air movement Effort and Inspection: symmetric chest movement; Negative for respiratory distress Cardio regular rhythm and no murmurs Rate: tachycardic Peripheral Pulses: pulses 2+ throughout GI normal to inspection, nondistended, normoactive bowel sounds and non-tender Palpation: Negative for guarding or rebound tenderness present Back/Spine no CVA tenderness and no thoracic nor lumbar tenderness Extremity Extremity Narrative: Paraplegia General Extremety ED: Negative for edema or tenderness General Extremity: Negative for edema Neuro oriented x3 and no sensory deficits noted Sensorium / Orientation: awake and alert Skin no rashes or lesions noted and no wounds MDM MDM MDM Narrative Medical decision making narrative: Interventions / MDM: Differential diagnosis: Urinary tract infection, neutropenia, fevers Diagnosis considered but do not suspect: N/A My EKG interpretation: N/A Imaging independently reviewed and interpreted by myself: 2 view chest x-ray: No acute process also read by radiology. External documents reviewed: N/A Test considered but not ordered:N/A ED course: Pleasant nontoxic patient currently afebrile. She is on treatment for cancer fever yesterday. She tachycardia with dry mucosal membranes. Neutropenic workup will be initiated. Will give IV fluids. Chest x-ray ordered for further evaluation. 1355: Urine with infection white count 3.4. Creatinine 0.58. Sodium 135. Urine culture sent. Clinically stable on reevaluation. I discussed with her oncologist Dr. Brizuela, he states he wanted her workup due to her having neutropenia couple weeks ago with her medications. She continued her regimen of full dose which was cut down. He is reassured on the findings. Agrees with starting her on Augmentin covers urine and her upper respiratory symptoms. She will follow-up with him as an outpatient. Return precautions. All questions were answered. Re-evaluation: stable Disposition discussed with patient/family/significant other: Patient and significant other Case discussed with consulting clinician: Oncology This note was generated with [employer] dictation software. It may contain incorrect words, spelling, and punctuation that were not noted in checking the note before signing. Lab Data Attestation: I reviewed the patient's lab results. Labs: Laboratory Results - last 24 hr 08/27/24 08/27/24 12:00 12:25 WBC 3.4 L RBC 4.26 Hgb 12.7 Hct 38.6 MCV 90.6 MCH 29.8 MCHC 32.9 RDW Std Deviation 47.4 H RDW Coeff of Mimi 14.5 Plt Count 177 MPV 9.2 Immature Gran % (Auto) 0.000 Neut % (Auto) 61.0 Lymph % (Auto) 15.5 L [place] % (Auto) 22.6 H Eos % (Auto) 0.0 Baso % (Auto) 0.9 Absolute Neuts (auto) 2.1 Absolute Lymphs (auto) 0.52 L Nucleated RBC % 0 Sodium 135 L Potassium 3.5 Chloride 104 Carbon Dioxide 21.0 Anion Gap 11 BUN 9 Creatinine 0.58 Estim Creat Clear Calc 83.54 Est GFR (MDRD) Af Amer 142 Est GFR (MDRD) Non-Af 118 BUN/Creatinine Ratio 15.5 Glucose 92 Calcium 9.4 Total Bilirubin 1.10 H AST 15 ALT 16 Alkaline Phosphatase 98 Total Protein 7.5 Albumin 3.4 Globulin 4.1 Albumin/Globulin Ratio 0.8 L Urine Color Straw Urine Clarity Clear Urine pH 6.0 Ur Specific [place] 1.020 Urine Protein 15 H Urine Glucose (UA) Normal Urine Ketones 150 A* Urine Occult Blood 25 H Urine Nitrite Positive H Urine Bilirubin Negative Urine Urobilinogen Normal Ur Leukocyte Esterase 100 H Urine RBC 0 SEEN Urine WBC 0-5 SEEN Ur Squamous Epith Cells 0-5 SEEN Urine Bacteria 2+ Urine Mucus 0 SEEN Radiography Diagnostic Testing: Clinical Impression(s) from Imaging Studies Chest X-Ray 08/27/24 11:47 IMPRESSION: No acute pulmonary process Electronically Signed: Daniel Padron MD at 12:34 EST , Discharge Plan Triage Chief Complaint: Fever ED Provider: Darius Christine Dx/Rx/DC Orders Clinical Impression: UTI (urinary tract infection), URI (upper respiratory infection), Breast cancer in female Instructions: UTIs Understanding, ED Upper Resp Infec Abx Tx Prescriptions: New amoxicillin-pot clavulanate 875-125 mg tablet 875 mg PO Q12H Qty: 20 0RF No Action ribociclib [Kisqali] PO multivitamin [Daily Multi-Vitamin] Tablet 1 tab PO DAILY oxycodone 5 mg Tablet 5 - 10 mg PO Q4H PRN PRN (Reason: Pain Score 1-10) 7 Days Qty: 30 0RF polyethylene glycol 3350 17 gram Powder In Packet 17 g PO DAILY Qty: 31 0RF sennosides-docusate sodium [Stool Softener-Stimulant Laxat] 8.6-50 mg Tablet 2 tab PO BID Qty: 120 0RF bisacodyl 10 mg Suppository 10 mg SD Q48H Qty: 15 0RF menthol-zinc oxide [Calmoseptine] 0.44-20.6 % Ointment 1 applic topical 0600,2200 Qty: 1 0RF Protocol: *Topical Application Instructions APPLICATION INSTRUCTIONS: coccyx acetaminophen [Tylenol] 325 mg tablet 650 mg PO Q6H PRN (Reason: pain or fever >100.5 F) Qty: 120 0RF Primary Care Provider: Sherman Stoddard Referrals: Sherman Stoddard DO [Primary Care Provider] - Nacho Brizuela DO [Med Staff - Active Staff] - 1-2 Weeks Activity Restrictions/Additional Instructions: WBC 3.4 with absolute neutrophil of 2100. Urine with infection. Cultures pending. Chest x-ray negative. Take antibiotic as prescribed. Follow-up with Dr. Brizuela. Print Language: Haitian Disposition Disposition: Home, Self Care Discharge Date/Time: 08/27/24 14:29
[2024-08-27 12:04] VITALS: BP 120/87; PULSE 118; RESP 18; TEMP 37; O2SAT 97
[2024-08-27 12:31] LABS: Absolute Lymphocyte Count 0.52 X10^3/uL (0.83-4.51); Absolute Neutrophil Count 2.1 X10^3/uL (2.0-7.7); Basophil# 0.03 X10^3/uL; Basophil% 0.9 % (0-1); Hematocrit 38.6 % (37-47); Hemoglobin 12.7 g/dL (12.0-15.0); Lymphocyte # 0.52 X10^3/ul (0.83-4.51); Lymphocyte % 15.5 % (19-41); Mean Corp Hgb Conc 32.9 g/dL (32-36); Mean Corpuscular Hgb 29.8 pg (27.0-32.0); Mean Corpuscular Volume 90.6 fL (81-99); Mean Platelet Vol. 9.2 fl (6.2-12.0); Monocyte# 0.76 X10^3/uL; Monocyte% 22.6 % (0-10); NRBC Flagged by Analyzer 0 % (0-5); Neutrophil # 2.05 X10^3/uL (2.7-7.7); POSITIVE DIFFERENTIAL YES; Platelet Count 177 K/mm3 (150-450); RBC Distribution Width CV 14.5 % (11.6-14.6); RBC Distribution Width SD 47.4 fl (35.1-43.9); Red Blood Count 4.26 M/mm3 (4.2-5.4); White Blood Count 3.4 K/mm3 (4.4-11.0)
[2024-08-27 12:34] LABS: ALB/GLOB Ratio 0.8 RATIO (0.9-2.4); AST(SGOT) 15 U/L (15-37); Alanine Aminotransfer ALT/SGPT 16 U/L (13-56); Albumin, Serum 3.4 g/dL (3.2-5.0); Alkaline Phosphatase 98 U/L (45-117); Anion Gap 11 (5-15); BUN 9 mg/dL (7-18); BUN/Creat Ratio 15.5 RATIO (10-20); Calcium,Total 9.4 mg/dL (8.5-10.1); Chloride 104 mmol/L (98-107); Creatinine, Serum 0.58 mg/dL (0.55-1.02); EST Glomerular Filtration Rate 118 mL/min (>60); Est Glom Filt Rate - Afr Amer 142 mL/min (>60); Estimated Creatinine Clearance 83.54 ml/min; Globulin 4.1 g/dL (2.2-4.2); Glucose 92 mg/dL (74-106); Potassium 3.5 mmol/L (3.5-5.1); Protein, Total 7.5 g/dL (6.4-8.2); Sodium Level 135 mmol/L (136-145)
[2024-08-27] MEDS: 0.9% Normal Saline (500mL Bag) 500 ML 999 ML IV (12:46)
[2024-08-27 12:48] LABS: Color, Urine Straw (Yellow); Glucose, Dipstick Normal (Normal); Leukocyte Esterase-Dipstick 100 /ul (Negative); Mucous, Urine 0 SEEN /hpf (<or=2+); Nitrite-Dipstick Positive (Negative); Occult Blood-Urine 25 /ul (Negative); Protein-Dipstick 15 mg/dl (Negative); Red Blood Cells-Urine 0 SEEN /hpf (0-5); Urine Bilirubin Dipstick Negative (Negative); Urine Clarity Clear (Clear); Urine Urobilinogen Normal (Normal)
[2024-08-27 12:57] LABS: Ketone-Dipstick 150 mg/dl (Negative)
[2024-08-27 13:00] VITALS: BP 143/90; PULSE 112; RESP 18; TEMP 37.2; O2SAT 97
[2024-08-27 13:08] LABS: Squamous Epithelial Cells - UA 0-5 SEEN /hpf (5-10); White Blood Cells 0-5 SEEN /hpf (0-5)
[2024-08-27 13:09] LABS: Bacteria 2+ /hpf (None Seen)
[2024-08-27 14:00] VITALS: BP 130/93; PULSE 111; RESP 18; TEMP 37.2; O2SAT 96
[2024-08-27] MEDS: Amox/Clavulanate 875 MG Tablet PO (14:27)
[2024-08-27 14:28] VITALS: BP 130/93; PULSE 78; RESP 16; TEMP 37; O2SAT 99
== END 2024-08-27 14:29 | disposition home or self-care (01) ==
PROVIDERS: Emergency Provider Emergency Medicine; PCP Family Medicine; Visit Provider Emergency Medicine
DX: N39.0 Urinary tract infection, site not specified (principal); G82.20 Paraplegia, unspecified; C50.919 Malignant neoplasm of unspecified site of unspecified female breast; J06.9 Acute upper respiratory infection, unspecified
CPT/HCPCS: 71046; 80053; 81001; 85025; 87040; 87086; 87088; 87186; 99283